=== PATIENT | male | born 1965 | race Caucasian/White ===

== ENCOUNTER 2016-07-02 09:10 | Inpatient (IN) ==
[2016-07-02] MEDS ORDERED: *HR* HYDROcodone/Acet 5/325 mg TABLET PO ONE (09:30)
--- NOTE | 2016-07-02 09:33 | Emergency Department Note ---
Disposition Clinical Impression: Deep vein thrombosis of lower extremity, Lower extremity edema, Subtherapeutic international normalized ratio (INR) Disposition: Admitted As Inpatient Condition: Good Extremity Problem HPI - General Chief complaint: ED Extremity Problem,Nontraumatic Stated complaint: left leg/foot pain Time Seen by Provider: 07/02/16 09:22 Source: patient Limitations: no limitations Nursing Notes Reviewed: Yes Vital Signs Reviewed: Yes - History of Present Illness Pain Scale: 9 - Related Data Home Medications Medication Instructions Recorded Confirmed Fenofibrate [Fenofibrate] 54 mg PO HS 07/02/16 07/02/16 Gabapentin [Gabapentin] 800 mg PO QID 07/02/16 07/02/16 GlyBURIDE [Glyburide] 2.5 mg PO QAM 07/02/16 07/02/16 Losartan/HCTZ [Hyzaar 50-12.5 1 tab PO BID 07/02/16 07/02/16 Tablet] Metformin [Glucophage] 1,000 mg PO HS 07/02/16 07/02/16 Metformin [Glucophage] 1,500 mg PO QAM 07/02/16 07/02/16 Metoprolol XL (24 HR) Succ [Toprol 50 mg PO QAM 07/02/16 07/02/16 XL] Metoprolol XL (24 HR) Succ [Toprol 100 mg PO HS 07/02/16 07/02/16 XL] Pravastatin Sodium [Pravachol] 20 mg PO BID 07/02/16 07/02/16 Warfarin [Coumadin] 5 mg PO QAM 07/02/16 07/02/16 Allergies Allergy/AdvReac Type Severity Reaction Status Date / Time codeine Allergy Hives Verified 07/02/16 09:15 Past Medical History - Past Medical History Medical history: Reports: diabetes, hyperlipidemia, hypertension, myocardial infarction, peripheral artery disease, other Psychiatric history: Reports: no psych history - Social History Smoking Status: Never smoker Smokeless Tobacco Status: Yes Alcohol use: Reports: none Drug use: Reports: none Physical Exam - General Limitations: no limitations General appearance: alert, in no apparent distress Course Vital Signs Temperature 98.0 F 07/02/16 09:16 Pulse Rate 103 07/02/16 09:16 Respiratory Rate 18 07/02/16 09:16 Blood Pressure 199/113 07/02/16 09:16 O2 Sat by Pulse Oximetry 98 07/02/16 09:16 Temperature 98.1 F 07/02/16 12:10 Pulse Rate 83 07/02/16 12:10 Respiratory Rate 17 07/02/16 12:10 Blood Pressure 172/90 07/02/16 12:10 O2 Sat by Pulse Oximetry 95 07/02/16 12:10 Oxygen Delivery Oxygen Delivery Room Air Extremity Problem, Nontraumati - [facility] Narrative Medical decision making narrative: I examined this patient and my medical decision-making was reviewed with the SEMICONDUCTOR MANUFACTURING TECHNICIAN/PA/Advanced Practice Nurse/Resident Physician. I agree with the documented findings, disposition and treatment plan as described except to the extent set forth below. Patient was evaluated myself and Dr. Chambers, agrees his evaluation management plan supervise care the patient stay. Patient presents today with bilateral lower extremity pain. He sits been chronic. He is between doctors at this time. His seen pain management, podiatry, and also primary care. He has been has signs of peipheral vascular disease he is not aware. He has edma in his lower extremities and history of Dvt. We will order a CHF workup and check his legs for DVT check pulses on him and then reassess. He may need a vascular referral primary care. He is in agreement with this plan. 1040 hrs.: Spoke with the nanotechnology engineering technician patient has multiple new-appearing DVTs in the popliteal region. Because of this and his INR being non-therapeutic rest tremor and heparin and bring him into the hospital. He will need further workup for the DVTs to determine whether this is from another source or fixtures affect his Coumadin is not therapeutic rest of his labs look good. Were discussing that with the patient this time. 1050 hrs.: Spoke with the hospitalist and they agreed to admission. Asked that we start him on Lovenox. Patient's agreement with the plan. Waiting on bed. - Lab Data Result diagrams: 07/02/16 09:45 07/02/16 09:45 Lab Results 07/02/16 07/02/16 07/02/16 Range/Units 09:45 09:45 09:45 WBC 4.4 (4.3-11.1) K/mcL RBC 4.70 (4.19-5.50) M/mcL Hgb 14.6 (12.9-16.9) g/dL Hct 41.3 (37.5-50.1) % MCV 87.9 (83.0-100.0) fL MCH 31.1 (28.0-33.3) pg MCHC 35.4 (31.6-35.5) g/dL RDW 12.8 (11.5-14.5) % Plt Count 125 L (140-400) K/mcL MPV 10.2 (9.4-12.4) fL Immature Gran % 0.9 (0-4) % Seg Neutrophils % 50.2 % Lymphocytes % 35.6 % Monocytes % 9.0 % Eosinophils % 3.4 % Basophils % 0.9 % Neutrophils # 2.2 (1.6-8.9) K/mcL Lymphocytes # 1.6 (0.6-4.6) K/mcL Monocytes # 0.4 (0.0-1.3) K/mcL Eosinophils # 0.2 (0.0-0.6) K/mcL Basophils # 0.0 (0.0-0.2) K/mcL PT 11.6 (9.4-12.1) Seconds INR 1.1 Sodium 140 (136-145) mEq/L Potassium 3.6 (3.5-4.5) mEq/L Chloride 103 (98-109) mEq/L Carbon Dioxide 27 (19-29) mEq/L BUN 12 (8-26) mg/dL Creatinine 0.74 (0.72-1.25) mg/dL Est GFR ( Amer) > 60 (> 60) Est GFR (Non-Af Amer) > 60 (> 60) BUN/Creatinine Ratio 16 (6-26) Glucose 112 H (70-99) mg/dL Calculated Osmolality 291 (280-300) Calcium 9.8 (8.6-10.8) mg/dL Total Bilirubin 0.5 (0.2-1.2) mg/dL AST 19 (5-34) Units/L ALT 19 (0-55) Units/L Alkaline Phosphatase 64 (38-126) Units/L B-Natriuretic Peptide (0-100) pg/mL Serum Total Protein 7.6 (6.0-8.3) g/dL Albumin 3.8 (3.5-5.0) g/dL Globulin 3.8 H (2.4-3.5) g/dL Albumin/Globulin Ratio 1.0 L (1.1-2.2) 07/02/16 Range/Units 09:45 WBC (4.3-11.1) K/mcL RBC (4.19-5.50) M/mcL Hgb (12.9-16.9) g/dL Hct (37.5-50.1) % MCV (83.0-100.0) fL MCH (28.0-33.3) pg MCHC (31.6-35.5) g/dL RDW (11.5-14.5) % Plt Count (140-400) K/mcL MPV (9.4-12.4) fL Immature Gran % (0-4) % Seg Neutrophils % % Lymphocytes % % Monocytes % % Eosinophils % % Basophils % % Neutrophils # (1.6-8.9) K/mcL Lymphocytes # (0.6-4.6) K/mcL Monocytes # (0.0-1.3) K/mcL Eosinophils # (0.0-0.6) K/mcL Basophils # (0.0-0.2) K/mcL PT (9.4-12.1) Seconds INR Sodium (136-145) mEq/L Potassium (3.5-4.5) mEq/L Chloride (98-109) mEq/L Carbon Dioxide (19-29) mEq/L BUN (8-26) mg/dL Creatinine (0.72-1.25) mg/dL Est GFR ( Amer) (> 60) Est GFR (Non-Af Amer) (> 60) BUN/Creatinine Ratio (6-26) Glucose (70-99) mg/dL Calculated Osmolality (280-300) Calcium (8.6-10.8) mg/dL Total Bilirubin (0.2-1.2) mg/dL AST (5-34) Units/L ALT (0-55) Units/L Alkaline Phosphatase (38-126) Units/L B-Natriuretic Peptide 13 (0-100) pg/mL Serum Total Protein (6.0-8.3) g/dL Albumin (3.5-5.0) g/dL Globulin (2.4-3.5) g/dL Albumin/Globulin Ratio (1.1-2.2)
--- NOTE | 2016-07-02 09:35 | Emergency Department Note ---
Disposition Clinical Impression: Subtherapeutic international normalized ratio (INR) Deep vein thrombosis of lower extremity Qualifiers: Affected thrombotic vein of extremity: unspecified vein of extremity Laterality : bilateral Chronicity: acute Qualified Code(s): I82.403 - Acute embolism and thrombosis of unspecified deep veins of lower extremity, bilateral Lower extremity edema Qualifiers: Laterality: bilateral Qualified Code(s): R60.0 - Localized edema Disposition: Admitted As Inpatient Condition: Good Time of Disposition: 10:55 Extremity Problem HPI - General Chief complaint: ED Extremity Problem,Nontraumatic Stated complaint: left leg/foot pain Time Seen by Provider: 07/02/16 09:22 Source: patient Mode of arrival: ambulatory Limitations: no limitations Nursing Notes Reviewed: Yes Vital Signs Reviewed: Yes - History of Present Illness HPI Narrative: 51-year-old male with a history of diabetes with neuropathy, hypertension, chronic DVT on Coumadin presents to the ED with worsening leg pain. Patient has a history of chronic bilateral leg pain worse last night to his left leg. He has known neuropathy and is currently in between primary care providers. Reports his sugars are currently well-controlled. Denies any recent injury or trauma. However 2 days ago his left big toe nail fell off. Denies any fevers, cough, chest pain, shortness of breath. Legs are chronically swollen but he takes Coumadin for his chronic history of DVT's. He was able to ambulate with a cane to exam room. Denies any back pain, or urinary complaints. Pt Subjective Complaint: extremity pain Pain Scale: 9 - Related Data Home Medications Medication Instructions Recorded Confirmed Fenofibrate [Fenofibrate] 54 mg PO HS 07/02/16 07/02/16 Gabapentin [Gabapentin] 800 mg PO QID 07/02/16 07/02/16 GlyBURIDE [Glyburide] 2.5 mg PO QAM 07/02/16 07/02/16 Losartan/HCTZ [Hyzaar 50-12.5 1 tab PO BID 07/02/16 07/02/16 Tablet] Metformin [Glucophage] 1,000 mg PO HS 07/02/16 07/02/16 Metformin [Glucophage] 1,500 mg PO QAM 07/02/16 07/02/16 Metoprolol XL (24 HR) Succ [Toprol 50 mg PO QAM 07/02/16 07/02/16 XL] Metoprolol XL (24 HR) Succ [Toprol 100 mg PO HS 07/02/16 07/02/16 XL] Pravastatin Sodium [Pravachol] 20 mg PO BID 07/02/16 07/02/16 Warfarin [Coumadin] 5 mg PO QAM 07/02/16 07/02/16 Allergies Allergy/AdvReac Type Severity Reaction Status Date / Time codeine Allergy Hives Verified 07/02/16 09:15 All systems ED: reviewed and negative except as stated. Constitutional: Denies: fever, chills Cardiovascular: Denies: chest pain Respiratory: Denies: cough, dyspnea Gastrointestinal: Denies: abdominal pain, nausea, vomiting Genitourinary: Denies: urgency Musculoskeletal: Denies: back pain, neck pain Integumentary: Reports: abrasion, lesions, change in hair/nails. Denies: rash Neurological: Denies: headache, weakness, numbness Past Medical History - Past Medical History Attestation: Yes The following information was validated with the patient. Source: patient Medical history: Reports: diabetes, hyperlipidemia, hypertension, myocardial infarction, peripheral artery disease, other Psychiatric history: Reports: no psych history - Social History Smoking Status: Never smoker Smokeless Tobacco Status: Yes Alcohol use: Reports: none Drug use: Reports: none Physical Exam - General Limitations: no limitations General appearance: alert, in distress, obese - Head Head exam: atraumatic, normocephalic, normal inspection - Eye Eye exam: Present: normal appearance, PERRL, EOMI - ENT ENT exam: normal exam, normal oropharynx, mucous membranes moist - Neck Neck exam: Present: normal inspection, full ROM, trachea midline - Chest Chest inspection: Present: normal inspection, symmetric chest wall rise - Respiratory Respiratory exam: Present: normal lung sounds bilaterally. Absent: respiratory distress, wheezes - Cardiovascular Cardiovascular exam: Present: regular rate, normal rhythm, normal heart sounds - Abdominal Exam Abdominal exam: Present: soft, Non-Tender, normal bowel sounds. Absent: tenderness, distention, guarding, rebound, rigidity - Extremities Exam Extremities exam: Present: normal inspection, full ROM, normal capillary refill , pedal edema, calf tenderness. Absent: tenderness - Neurological Exam Neurological exam: Present: alert, oriented X3 - Psychiatric Psychiatric exam: Present: normal affect, normal mood - Skin Skin exam: Present: warm, dry, intact, normal color Course Course Narrative: 51-year-old male past history of DVT presents with worsening leg pain. Reports chronic leg swelling. Over the past several days he has increased bilateral leg pain. Denies any recent travel or shortness of breath. Vitals are stable. Lungs are clear to auscultation bilaterally. Full ROM to bilateral extremities. He has bilateral lower extremity edema. He has signs of peripheral vascular disease and recently had a toenail fall off. Wells DVT criteria score is high risk. Will get bilateral doppler ultrasound and doppler pedal pulses. Armstrong for pain. Will check basic labs to check for any signs of acute heart failure. Will include an INR since he is on coumadin. CMP to check for hypoalbuminemia. - Reevaluation(s) Reevaluation #1: Informed by doppler tech that he has multiple new appearing DVT in the popliteal regions bilaterally. Because of his subtherapeutic INR we will likely need to bridge him with heparin and admit to the hospital. He will likely need further workup for his DVTs to look for any other sources. Discussed plan with patient and son and are in agreement with plan. Hospitalist paged. Impression is acute bilateral DVT and subtherapeutic INR. Time: 10:50 - Consultations Consultation #1: Spoke with Dr. Espinoza, hospitalist, elisabeth to admit for acute DVT and subtherapeutic INR. Likely will need further workup with his acute DVT on anticoagulation. Cr is good at 0.7. Will initiate Lovenox 1mg/kg. Denies any history of PE. Time: 10:55 Vital Signs Temperature 98.0 F 07/02/16 09:16 Pulse Rate 103 07/02/16 09:16 Respiratory Rate 18 07/02/16 09:16 Blood Pressure 199/113 07/02/16 09:16 O2 Sat by Pulse Oximetry 98 07/02/16 09:16 Temperature 98.4 F 07/02/16 18:31 Pulse Rate 90 07/02/16 18:31 Respiratory Rate 18 07/02/16 18:31 Blood Pressure 162/80 07/02/16 18:31 O2 Sat by Pulse Oximetry 96 07/02/16 18:31 Oxygen Delivery Oxygen Delivery Room Air Extremity Problem, Nontraumati - Medical Records Medical records reviewed: Yes I reviewed the patient's medical records. - Lab Data Lab results reviewed: Yes I reviewed the patient's lab results. Result diagrams: 07/02/16 09:45 07/02/16 09:45 Lab Results 07/02/16 07/02/16 07/02/16 Range/Units 09:45 09:45 09:45 WBC 4.4 (4.3-11.1) K/mcL RBC 4.70 (4.19-5.50) M/mcL Hgb 14.6 (12.9-16.9) g/dL Hct 41.3 (37.5-50.1) % MCV 87.9 (83.0-100.0) fL MCH 31.1 (28.0-33.3) pg MCHC 35.4 (31.6-35.5) g/dL RDW 12.8 (11.5-14.5) % Plt Count 125 L (140-400) K/mcL MPV 10.2 (9.4-12.4) fL Immature Gran % 0.9 (0-4) % Seg Neutrophils % 50.2 % Lymphocytes % 35.6 % Monocytes % 9.0 % Eosinophils % 3.4 % Basophils % 0.9 % Neutrophils # 2.2 (1.6-8.9) K/mcL Lymphocytes # 1.6 (0.6-4.6) K/mcL Monocytes # 0.4 (0.0-1.3) K/mcL Eosinophils # 0.2 (0.0-0.6) K/mcL Basophils # 0.0 (0.0-0.2) K/mcL PT 11.6 (9.4-12.1) Seconds INR 1.1 Sodium 140 (136-145) mEq/L Potassium 3.6 (3.5-4.5) mEq/L Chloride 103 (98-109) mEq/L Carbon Dioxide 27 (19-29) mEq/L BUN 12 (8-26) mg/dL Creatinine 0.74 (0.72-1.25) mg/dL Est GFR ( Amer) > 60 (> 60) Est GFR (Non-Af Amer) > 60 (> 60) BUN/Creatinine Ratio 16 (6-26) Glucose 112 H (70-99) mg/dL Calculated Osmolality 291 (280-300) Calcium 9.8 (8.6-10.8) mg/dL Total Bilirubin 0.5 (0.2-1.2) mg/dL AST 19 (5-34) Units/L ALT 19 (0-55) Units/L Alkaline Phosphatase 64 (38-126) Units/L B-Natriuretic Peptide (0-100) pg/mL Serum Total Protein 7.6 (6.0-8.3) g/dL Albumin 3.8 (3.5-5.0) g/dL Globulin 3.8 H (2.4-3.5) g/dL Albumin/Globulin Ratio 1.0 L (1.1-2.2) 07/02/16 Range/Units 09:45 WBC (4.3-11.1) K/mcL RBC (4.19-5.50) M/mcL Hgb (12.9-16.9) g/dL Hct (37.5-50.1) % MCV (83.0-100.0) fL MCH (28.0-33.3) pg MCHC (31.6-35.5) g/dL RDW (11.5-14.5) % Plt Count (140-400) K/mcL MPV (9.4-12.4) fL Immature Gran % (0-4) % Seg Neutrophils % % Lymphocytes % % Monocytes % % Eosinophils % % Basophils % % Neutrophils # (1.6-8.9) K/mcL Lymphocytes # (0.6-4.6) K/mcL Monocytes # (0.0-1.3) K/mcL Eosinophils # (0.0-0.6) K/mcL Basophils # (0.0-0.2) K/mcL PT (9.4-12.1) Seconds INR Sodium (136-145) mEq/L Potassium (3.5-4.5) mEq/L Chloride (98-109) mEq/L Carbon Dioxide (19-29) mEq/L BUN (8-26) mg/dL Creatinine (0.72-1.25) mg/dL Est GFR ( Amer) (> 60) Est GFR (Non-Af Amer) (> 60) BUN/Creatinine Ratio (6-26) Glucose (70-99) mg/dL Calculated Osmolality (280-300) Calcium (8.6-10.8) mg/dL Total Bilirubin (0.2-1.2) mg/dL AST (5-34) Units/L ALT (0-55) Units/L Alkaline Phosphatase (38-126) Units/L B-Natriuretic Peptide 13 (0-100) pg/mL Serum Total Protein (6.0-8.3) g/dL Albumin (3.5-5.0) g/dL Globulin (2.4-3.5) g/dL Albumin/Globulin Ratio (1.1-2.2) - Radiology Data Radiology results reviewed: Yes I reviewed the patient's radiology results. Preliminary doppler US report for bilateral acute DVT in popliteal - EKG Data EKG attestation: Yes I reviewed and interpreted this EKG. EKG results narrative: EKG performed shows normal sinus rhythm 96 bpm, normal axis, there are no ST elevations or depressions, no T waves inversions, poor R-R wave progression. Intervals are within normal limits VA interval 176 QRS 120 QT QTC 378 432. Compared to EKG performed 12/22/2009 shows consistent findings of normal sinus rhythm without any intraventricular conduction delay. Otherwise unremarkable. No acute ischemic changes.
[2016-07-02 09:57] LABS: Basophils % 0.9 %; Eosinophils # 0.2 K/mcL (0.0-0.6); Eosinophils % 3.4 %; Hematocrit 41.3 % (37.5-50.1); Hemoglobin 14.6 g/dL (12.9-16.9); Immature Granulocytes % 0.9 % (0-4); Lymphocytes # 1.6 K/mcL (0.6-4.6); Lymphocytes % 35.6 %; Mean Corpuscular HGB Conc 35.4 g/dL (31.6-35.5); Mean Corpuscular Hemoglobin 31.1 pg (28.0-33.3); Mean Corpuscular Volume 87.9 fL (83.0-100.0); Mean Platelet Volume 10.2 fL (9.4-12.4); Monocytes # 0.4 K/mcL (0.0-1.3); Neutrophils # 2.2 K/mcL (1.6-8.9); Platelet Count 125 K/mcL (140-400); Red Cell Distribution Width 12.8 % (11.5-14.5); Segmented Neutrophils % 50.2 %
[2016-07-02 10:08] LABS: Alanine Aminotransferase 19 Units/L (0-55); Albumin 3.8 g/dL (3.5-5.0); Alkaline Phosphatase 64 Units/L (38-126); Aspartate Amino Transferase 19 Units/L (5-34); BUN/Creatinine Ratio 16 (6-26); Bilirubin,Total 0.5 mg/dL (0.2-1.2); Blood Urea Nitrogen 12 mg/dL (8-26); Calcium 9.8 mg/dL (8.6-10.8); Carbon Dioxide 27 mEq/L (19-29); Chloride 103 mEq/L (98-109); Globulin 3.8 g/dL (2.4-3.5); Glucose 112 mg/dL (70-99); Osmolality,Calculated 291 (280-300); Potassium 3.6 mEq/L (3.5-4.5); Sodium 140 mEq/L (136-145); Total Protein 7.6 g/dL (6.0-8.3); eGFR For African Americans > 60 (> 60); eGFR For Non-African Americans > 60 (> 60)
[2016-07-02 10:09] LABS: INR 1.1; Prothrombin Time 11.6 Seconds (9.4-12.1)
[2016-07-02] MEDS ORDERED: *HR* HYDROmorphone (PF) 1 MG/ML SYRINGE IVP ONE (10:41)
[2016-07-02] MEDS ORDERED: *HR* Enoxaparin 80 MG/0.8 ML SYRINGE SQ STA (10:47)
[2016-07-02] MEDS ORDERED: *HR* Enoxaparin 100 MG/ML SYRINGE SQ ONE (11:00)
[2016-07-02] MEDS ORDERED: Ondansetron 4 MG/2 ML VIAL IVP PRN (11:41)
[2016-07-02] MEDS ORDERED: Naloxone 0.4 MG/ML INJ IVP PRN (11:41)
--- NOTE | 2016-07-02 12:52 | Internal Med History&Physical ---
Date of Encounter: 07/02/16 Time of Encounter: 11:45 Assessment and Plan (1) Deep vein thrombosis of lower extremity Current visit: Yes Status: Acute left lower extremity acute DVT in 2013. Since then he has been on anticoagulation with Coumadin 5 mg daily. He reports that his last INR check was April 2016 and the number was okay. He admits to changing his diet recently because he is trying to lose weight so he is eating more salad. Presented with severe bilateral leg pain. Venous doppler ultrasound shows a partial acute DVT of bilateral Popliteal Vein and occlusion of the right Gastroc vein. Continue Lovenox subcutaneous twice a day. Consult social worker health services for planning discharged on Lovenox and Coumadin. Daily INR checks. Consult pharmacy medication for coumadin teaching and recent change in diet habits. Cardiac monitoring. Qualifiers: Affected thrombotic vein of extremity: unspecified vein of extremity Laterality: bilateral Chronicity: acute Qualified Code(s): I82.403 - Acute embolism and thrombosis of unspecified deep veins of lower extremity, bilateral (2) Subtherapeutic international normalized ratio (INR) Current visit: Yes Status: Acute INR 1.1. plan as above. (3) Diabetes mellitus Current visit: Yes Status: Acute ISSS. diabetic diet. Qualifiers: Diabetes mellitus type: type 2 Diabetes mellitus complication status: with neurologic complications Diabetes mellitus complication detail: with polyneuropathy Diabetes mellitus exterminator termite insulin use: without exterminator termite use Qualified Code(s): E11.42 - Type 2 diabetes mellitus with diabetic polyneuropathy (4) Hypertension Current visit: Yes Status: Acute elevated BP. start hydralazine. lisinopril. close monitor. Qualifiers: Hypertension type: essential hypertension Qualified Code(s): I10 - Essential (primary) hypertension (5) Diabetic neuropathy Current visit: Yes Status: Acute Patient has prolonged history of severe bilateral nephropathy for which he can not walk as much as he would like. continue home dose of gabapentin. Qualifiers: Diabetes mellitus type: type 2 Diabetes mellitus complication detail: diabetic polyneuropathy Qualified Code(s): E11.42 - Type 2 diabetes mellitus with diabetic polyneuropathy Internal Medicine - H&P: HPI Chief complaint: Severe bilateral leg pain for 2 days. Admitted From: Home Plans for Post Hospital Care: Home History of present illness: Mr. Nuñez is a 51 year old male with past medical history of hypertension, diabetes mellitus, severe diabetic neuropathy in both legs and prior episode of left lower extremity acute DVT in 2013. Since then he has been on anticoagulation with Coumadin 5 mg daily. He reports that his last INR check was April 2016 and the number was okay. He admits to changing his diet recently because he is trying to lose weight so he is eating more salad. For the 2 days, he developed severe bilateral leg pain that it became unbearable today so he came to our ED. No change in leg swelling. No shortness of breath. No chest pain. No bleeding. No abdominal pain. No urinary complaints. No headache. No syncope. No focal deficit. In our ED, venous doppler of LE showed bilateral acute DVT. INR was 1.1. He received subcutaneous Lovenox 1. Past Med Surg Social Fam HX - Past Medical History Medical history: diabetes, hyperlipidemia, hypertension, myocardial infarction, peripheral artery disease, other Psychiatric history: no psych history - Social History Smoking Status: Never smoker Smokeless Tobacco Status: Yes Alcohol use: none Drug use: none - Family History Mother Living Status: Hx Family Cardiac Disorders: Yes (CHF) Father Living Status: Hx Family Psychosocial Disorders: Yes (suicide 4 months after passed.) Internal Medicine - H&P: Meds Hydrocodone/Acetaminophen [[place] 5-325 Tablet] 1 - 2 each PO Q6H PRN #20 tablet 09/12/15 [Rx] Allergies codeine Allergy (Verified 07/02/16 09:15) Hives All Systems PM: A 10-system review of systems was performed and is negative for pertinent findings except as documented above in the HPI. - Constitutional Vitals: Temp Pulse Resp BP Pulse Ox 98.1 F 83 17 172/90 95 07/02/16 12:10 07/02/16 12:10 07/02/16 12:10 07/02/16 12:10 07/02/16 12:10 General appearance: Present: cooperative, A&O X 3, pleasant, no acute distress, answers questions appropriately - Eye Eye exam: Present: PERRL, sclera anicteric - Neck Neck exam general surgery: Present: supple, trachea midline. Absent: lymphadenopathy - Respiratory Respiratory exam: Present: CTAB - Cardiovascular Cardiovascular exam: Present: RRR - GI/Abdominal GI/Abdominal exam: Present: normal bowel sounds, soft. Absent: distended, tenderness - Extremities Exam Extremities exam: Present: pedal edema - Back Exam Back exam: Absent: CVA tenderness (L), CVA tenderness (R) - Neurological Exam Neurological exam: Present: alert, oriented X3, no focal deficits. Absent: facial droop, speech deficit - Skin Skin exam: Absent: rash Additional comments: Legs: Chronic venous stasis changes in skin. Internal Med - H&P Results - Labs CBC & Chem 7: 07/02/16 09:45 07/02/16 09:45
[2016-07-02] MEDS: Gabapentin 400 MG CAPSULE PO SCH ×2 (13:47→20:53)
[2016-07-02] MEDS: Lisinopril 20 MG TABLET PO SCH (13:47)
[2016-07-02] MEDS: *HR* Morphine 2 MG/ML SYRINGE IVP PRN ×3 (13:52→22:30)
[2016-07-02] MEDS: hydrALAZINE 25 MG TABLET PO SCH ×2 (16:54→23:15)
[2016-07-02] MEDS ORDERED: *HR* Warfarin 10 MG TABLET PO ONE (18:00)
[2016-07-02] MEDS ORDERED: Warfarin perPT PO PRN (18:00)
[2016-07-02] MEDS: *HR* Enoxaparin 100 MG/ML SYRINGE SQ SCH (20:52)
[2016-07-02] MEDS: *HR* HYDROcodone/Acet 5/325 mg TABLET PO PRN (20:53)
[2016-07-03] MEDS: *HR* Morphine 2 MG/ML SYRINGE IVP PRN ×4 (03:57→20:00)
[2016-07-03 05:08] LABS: Basophils % 0.6 %; Eosinophils # 0.2 K/mcL (0.0-0.6); Eosinophils % 3.1 %; Hematocrit 38.7 % (37.5-50.1); Immature Granulocytes % 0.6 % (0-4); Lymphocytes # 1.4 K/mcL (0.6-4.6); Lymphocytes % 28.7 %; Mean Corpuscular HGB Conc 33.6 g/dL (31.6-35.5); Mean Corpuscular Volume 89.2 fL (83.0-100.0); Mean Platelet Volume 10.2 fL (9.4-12.4); Monocytes # 0.5 K/mcL (0.0-1.3); Monocytes % 9.4 %; Neutrophils # 2.7 K/mcL (1.6-8.9); Platelet Count 121 K/mcL (140-400); Red Blood Count 4.34 M/mcL (4.19-5.50); Red Cell Distribution Width 12.9 % (11.5-14.5); Segmented Neutrophils % 57.6 %
[2016-07-03 05:25] LABS: INR 1.2; Prothrombin Time 12.9 Seconds (9.4-12.1)
[2016-07-03 05:26] LABS: BUN/Creatinine Ratio 16 (6-26); Blood Urea Nitrogen 12 mg/dL (8-26); Carbon Dioxide 28 mEq/L (19-29); Chloride 104 mEq/L (98-109); Potassium 3.7 mEq/L (3.5-4.5); Sodium 140 mEq/L (136-145)
[2016-07-03 05:27] LABS: Calcium 9.6 mg/dL (8.6-10.8); Chol/HDL Ratio 5.2 (0-4.9); Cholesterol 171 mg/dL (< 200); Glucose 142 mg/dL (70-99); HDL Cholesterol 33 mg/dL (40-59); LDL Cholesterol,Calculated 64 mg/dL (0-99); Magnesium 1.4 mg/dL (1.6-2.6); Osmolality,Calculated 292 (280-300); Triglycerides 372 mg/dL (< 150); eGFR For African Americans > 60 (> 60); eGFR For Non-African Americans > 60 (> 60)
[2016-07-03] MEDS: *HR* Enoxaparin 100 MG/ML SYRINGE SQ SCH ×2 (06:13→18:11)
[2016-07-03] MEDS: *HR* HYDROcodone/Acet 5/325 mg TABLET PO PRN ×2 (06:14→11:58)
[2016-07-03] MEDS: Lisinopril 20 MG TABLET PO SCH (09:03)
[2016-07-03] MEDS: hydrALAZINE 25 MG TABLET PO SCH ×2 (09:03→15:19)
[2016-07-03] MEDS: Gabapentin 400 MG CAPSULE PO SCH ×3 (09:03→21:19)
[2016-07-03] MEDS ORDERED: Dextrose Gel 15 GM PO PRN ×2 (09:28)
[2016-07-03] MEDS ORDERED: D5% in Water 1,000 ML IV PRN (09:28)
[2016-07-03] MEDS ORDERED: *HR* Dextrose 50 % in Water (Syg) 50 ML SYRINGE IVP PRN (09:28)
[2016-07-03] MEDS: Insulin LISPRO 300 UNITS/3 ML VIAL SQ SCH ×2 (11:48→16:56)
--- NOTE | 2016-07-03 17:41 | Internal Med Progress Note ---
Date of Encounter: 07/03/16 Time of Encounter: 10:00 - Assessment and plan (1) Deep vein thrombosis of lower extremity Current Visit: Yes Status: Acute Assessment and plan: Recurrent DVT, Pt is noncompliant to coumadin. Will resume coumadin, bridge with Lovenox. Hematology consult. Qualifiers: Affected thrombotic vein of extremity: unspecified vein of extremity Laterality: bilateral Chronicity: acute Qualified Code(s): I82.403 - Acute embolism and thrombosis of unspecified deep veins of lower extremity, bilateral (2) Diabetes mellitus Current Visit: Yes Status: Acute Assessment and plan: Sliding scale coverage Qualifiers: Diabetes mellitus type: type 2 Diabetes mellitus complication status: with neurologic complications Diabetes mellitus complication detail: with polyneuropathy Diabetes mellitus correction insulin use: without correction use Qualified Code(s): E11.42 - Type 2 diabetes mellitus with diabetic polyneuropathy (3) Hypertension Current Visit: Yes Status: Acute Assessment and plan: Continue home med, monitor BP Qualifiers: Hypertension type: essential hypertension Qualified Code(s): I10 - Essential (primary) hypertension (4) Subtherapeutic international normalized ratio (INR) Current Visit: Yes Status: Acute Assessment and plan: Continue coumadin. Education for compliance. Nutrition consult for diet education. - Subjective Interval history: Pt is a 51 yoM admitted for B/L leg pain. US leg shows B/L DVT. PMH is significant for HTN, DM, CAD, Left leg DVT diagnosed about two years ago. Pt was seen and examined. AAO x3, c/o legs pain controlled by pain meds. In no acute distress. Denies chest pain or SOB. Vitals stable. Continue anticoagulations. Recurrent DVT, will consult hematology for further management. - Constitutional Vitals: Temp Pulse Resp BP Pulse Ox 97.5 F L 81 16 186/104 96 07/03/16 15:09 07/03/16 15:09 07/03/16 15:09 07/03/16 15:09 07/03/16 15:09 General appearance: Present: cooperative, A&O X 3, pleasant, no acute distress, answers questions appropriately - Head Head exam: Present: atraumatic, normocephalic - Eye Eye exam: Present: PERRL, conjuntiva pink, sclera anicteric Pupils: Present: PERRL - Neck Neck exam general surgery: Present: supple, trachea midline. Absent: lymphadenopathy - Respiratory Respiratory exam: Present: CTAB. Absent: accessory muscle use, rales, rhonchi, wheezes - Cardiovascular Cardiovascular exam: Present: RRR, +S1, +S2. Absent: diastolic murmur, gallop, rubs, systolic murmur - GI/Abdominal GI/Abdominal exam: Present: normal bowel sounds, soft, no peritoneal signs. Absent: distended, tenderness - Extremities Exam Extremities exam: Present: calf tenderness (B/L), warm, radial pulses palpable and symetrical. Absent: cyanotic, pedal edema - Neurological Exam Neurological exam: Present: CN II-XII intact, oriented X3, no focal deficits. Absent: pronater drift, facial droop, speech deficit - Skin Skin exam: Present: dry, intact Internal Medicine: Result - Labs CBC & Chem 7: 07/03/16 04:54 07/03/16 04:54 - ABG Interpretation ABG results: PT/INR, D-dimer PT 12.9 Seconds (9.4-12.1) H 07/03/16 04:54 Consult Discharge Plan - Plan Referrals: Francoise Taylor PILOT PLANT TECHNICIAN [Primary Care Provider] -
--- NOTE | 2016-07-03 17:49 | Oncology Inp Consult Note ---
Date of Encounter: 07/03/16 Time of Encounter: 12:00 - Data of Consult Requesting Physician: Emy Mccarty MD Primary Care Provider: Francoise Taylor, - Consult Narrative Reason for consult: DVT recurrent History of present illness: Mr. Nuñez is a 51 year old male with medical history significant for left lower extremity deep venous thrombosis in 2013, patient is also obese history of hypertension, diabetes mellitus, was on anti-coagulation with Coumadin 5 mg daily hospitalized with subtherapeutic INR patient reports compliance to Coumadin but not complains to diet, presented with bilateral type pain and swelling a Doppler ultrasound preliminary showed acute DVT of bilateral popliteal vein. Patient is currently on Lovenox subcutaneously twice daily. He is also chronic neuropathy in bilateral lower extremities and uses gabapentin for his diabetic neuropathy. Hematology consulted for recommendation on further anticoag therapy. Other then lower extremity pain in the thigh area as was neuropathy patient denies any complaints of shortness of breath cough with expectoration or other symptoms. Assessment and Plan: Recurrent deep venous thrombosis off lower extremity bilateral to prior history of DVT in left lower extremity in 2013 reports, plans to Coumadin unable to get us INR checks/dietary management, suggested at anticoagulation with xarelto 20 mg by mouth daily if he could obtain insurance coverage. Plan on continuing life long anticoagulation. Diabetic neuropathy and pain in lower ext limits ambulation. F/U outpatient with us in hematology. Past Med Surg Social Fam HX - Past Medical History Medical history: diabetes, hyperlipidemia, hypertension, myocardial infarction, peripheral artery disease, other Psychiatric history: no psych history - Social History Smoking Status: Never smoker Smokeless Tobacco Status: Yes Alcohol use: none Drug use: none - Family History Mother Living Status: Hx Family Cardiac Disorders: Yes (CHF) Father Living Status: Hx Family Psychosocial Disorders: Yes (suicide 4 months after passed.) Medications and Allergies Fenofibrate [Fenofibrate] 54 mg PO HS 07/02/16 [History] Gabapentin [Gabapentin] 800 mg PO QID 07/02/16 [History] GlyBURIDE [Glyburide] 2.5 mg PO QAM 07/02/16 [History] Losartan/HCTZ [Hyzaar 50-12.5 Tablet] 1 tab PO BID 07/02/16 [History] Metformin [Glucophage] 1,000 mg PO HS 07/02/16 [History] Metformin [Glucophage] 1,500 mg PO QAM 07/02/16 [History] Metoprolol XL (24 HR) Succ [Toprol XL] 50 mg PO QAM 07/02/16 [History] Metoprolol XL (24 HR) Succ [Toprol XL] 100 mg PO HS 07/02/16 [History] Pravastatin Sodium [Pravachol] 20 mg PO BID 07/02/16 [History] Warfarin [Coumadin] 5 mg PO QAM 07/02/16 [History] Allergies codeine Allergy (Verified 07/02/16 09:15) Hives Review of systems: as above Oncology - Exam - Constitutional Vitals: Temp Pulse Resp BP Pulse Ox 97.5 F L 81 16 186/104 96 07/03/16 15:09 07/03/16 15:09 07/03/16 15:09 07/03/16 15:09 07/03/16 15:09 General appearance: morbidly obese - Head Head exam: Present: atraumatic, normal inspection - Eye Eye exam: Present: sclera anicteric - ENT ENT exam: Present: mucous membranes moist - Neck Neck exam: Present: normal inspection - Respiratory Respiratory exam: Present: CTAB Additional comments: thick CW, no rhonchi or rales - Cardiovascular Cardiovascular exam: Present: +S1, +S2 - GI/Abdominal GI/Abdominal exam: Present: normal bowel sounds, soft - Extremities Exam Additional comments: Nestor lower ext edema, cr skin changes, slight erythema - Neurological Exam Neurological exam: Present: alert, CN II-XII intact, oriented X3 - Psychiatric Psychiatric exam: Present: normal affect Oncology - Results - Imaging and Cardiology Venous US Status: image reviewed by me Consult Discharge Plan - Plan Referrals: Francoise Taylor DROP FORGE OPERATOR [Primary Care Provider] -
[2016-07-03] MEDS ORDERED: *HR* Warfarin 5 MG TABLET PO ONE (18:00)
--- NOTE | 2016-07-03 19:41 | Electrocardiograph Report ---
[place] [id number] Test Date: 2016-07-02 Pat Name: Jose M Nuñez Department: 104 Room: [facility] Gender: M Car Racer: : 1965 Requested By: Wilder Chambers Order Number: [id number] Reading MD: Greyson Miner Measurements Intervals Venus Rate: 96 P: 38 SD: 176 QRS: -19 QRSD: 120 T: 32 QT: 378 QTc: 432 Interpretive Statements SINUS RHYTHM MODERATE INTRAVENTRICULAR CONDUCTION DELAY NONSPECIFIC ST ELEVATION Electronically Signed On 07-03-2016 19:39:09 EST by Greyson Miner
[2016-07-03] MEDS ORDERED: Insulin LISPRO 300 UNITS/3 ML VIAL SQ SCH (21:00)
[2016-07-03] MEDS ORDERED: Metoprolol XL (24 HR) Succ 50 MG TAB.ER.24H PO SCH (21:00)
[2016-07-03] MEDS: Acetaminophen 325 MG TABLET PO PRN (21:18)
[2016-07-03] MEDS: Losartan/HCTZ 50-12.5 TABLET PO SCH (21:18)
[2016-07-03] MEDS: *HR* OxyCODONE Immed Rel 5 MG TABLET PO PRN (22:15)
[2016-07-04] MEDS: hydrALAZINE 25 MG TABLET PO SCH ×3 (00:11→14:56)
[2016-07-04] MEDS: *HR* Morphine 2 MG/ML SYRINGE IVP PRN ×3 (04:04→15:03)
[2016-07-04] MEDS: Acetaminophen 325 MG TABLET PO PRN ×2 (04:06→15:01)
[2016-07-04] MEDS ORDERED: *HR* LORazepam 1 MG TABLET PO PRN (05:43)
[2016-07-04 05:48] LABS: BUN/Creatinine Ratio 16 (6-26); Blood Urea Nitrogen 11 mg/dL (8-26); Calcium 9.4 mg/dL (8.6-10.8); Carbon Dioxide 24 mEq/L (19-29); Chloride 104 mEq/L (98-109); Glucose 135 mg/dL (70-99); Osmolality,Calculated 289 (280-300); Potassium 3.5 mEq/L (3.5-4.5); Sodium 139 mEq/L (136-145); eGFR For African Americans > 60 (> 60); eGFR For Non-African Americans > 60 (> 60)
[2016-07-04 05:53] LABS: INR 1.3; Prothrombin Time 14.3 Seconds (9.4-12.1)
[2016-07-04 05:59] LABS: Basophils % 0.6 %; Eosinophils # 0.2 K/mcL (0.0-0.6); Eosinophils % 3.6 %; Hematocrit 38.7 % (37.5-50.1); Hemoglobin 13.3 g/dL (12.9-16.9); Immature Granulocytes % 0.9 % (0-4); Lymphocytes # 1.3 K/mcL (0.6-4.6); Lymphocytes % 27.3 %; Mean Corpuscular HGB Conc 34.4 g/dL (31.6-35.5); Mean Corpuscular Hemoglobin 30.5 pg (28.0-33.3); Mean Corpuscular Volume 88.8 fL (83.0-100.0); Mean Platelet Volume 10.5 fL (9.4-12.4); Monocytes # 0.5 K/mcL (0.0-1.3); Monocytes % 10.2 %; Neutrophils # 2.7 K/mcL (1.6-8.9); Platelet Count 118 K/mcL (140-400); Red Blood Count 4.36 M/mcL (4.19-5.50); Red Cell Distribution Width 13.1 % (11.5-14.5); Segmented Neutrophils % 57.4 %
[2016-07-04] MEDS: *HR* Enoxaparin 100 MG/ML SYRINGE SQ SCH ×2 (06:18→18:20)
[2016-07-04] MEDS: Losartan/HCTZ 50-12.5 TABLET PO SCH (08:20)
[2016-07-04] MEDS: Gabapentin 400 MG CAPSULE PO SCH ×2 (08:25→14:56)
[2016-07-04] MEDS: Insulin LISPRO 300 UNITS/3 ML VIAL SQ SCH ×3 (08:45→18:22)
[2016-07-04] MEDS ORDERED: Metoprolol XL (24 HR) Succ 50 MG TAB.ER.24H PO SCH (09:00)
[2016-07-04] MEDS: *HR* OxyCODONE Immed Rel 5 MG TABLET PO PRN (11:51)
--- NOTE | 2016-07-04 15:01 | Venous Imaging Report ---
LE Venous Duplex Patient Name:oJse M Nuñez Order Number:[id number] Procedure Date:07/02/2016 Date:1965Age:51 yrs Gender:Male Location:[facility] ED Room #: Hotel Maid:Donell Neal RDCS Referring MD:Wilder Chambers DO pt skilled:Francoise Taylor, PACS SPECIALIST Reading MD:Eliot Bryant MD Primary Indications:Leg pain and swelling Secondary Indications: Risk Factors Yes/No Anticoagulants Yes Hx of DVT Yes Impressions: Acute deep venous thrombosis is present in the fight popliteal and gastrocnemius veins. Normal right lower extremity superficial venous exam. Acute deep venous thrombosis is present in the left popliteal vein. Normal left lower extremity superficial venous exam. Recommendations: After imaging the patient returned to their room. Critical findings reported to Dr. Ye in person by Donell Neal RDCS. Findings Venous Duplex Results: Right: Venous imaging of the lower extremity reveals full patency and normal vessel compressibility of the right distal iliac, right common femoral, right superficial femoral, right posterior tibial, right peroneal, right great saphenous and right lesser saphenous. Doppler signals in the evaluated veins were normal. There is an acute partially occlusive thrombus seen in the right popliteal. It demonstrates a partially compressible vein. Flow was phasic and it did augment. There is an acute occlusive thrombus seen in the right gastrocnemius. It demonstrates an incompressible vein. Flow was absent and it did not augment. Left: Venous imaging of the lower extremity reveals full patency and normal vessel compressibility of the left distal iliac, left common femoral, left superficial femoral, left posterior tibial, left peroneal, left great saphenous and left lesser saphenous. Doppler signals in the evaluated veins were normal. The left popliteal demonstrates a partially compressible vein. Flow was phasic and it did augment. Lower Extremity Venous Duplex Side Vein Compress Spontaneous Flow Augment Diameter (cm) Depth (cm) Right Popliteal Partial yes Phasic yes Right Gastrocnemius None no Absent no Left Popliteal Partial yes Phasic yes Updated by Eliot Bryant MD on 07/04/2016 2:56:25 PM electronically signed on 07/04/2016 2:57:07 PM with status of Final
--- NOTE | 2016-07-04 15:02 | Discharge Summary ---
Date of Encounter: 07/04/16 Time of Encounter: 14:00 - Discharge Diagnosis (1) Deep vein thrombosis of lower extremity Priority: Primary Status: Acute Qualifiers: Affected thrombotic vein of extremity: unspecified vein of extremity Laterality: bilateral Chronicity: acute Qualified Code(s): I82.403 - Acute embolism and thrombosis of unspecified deep veins of lower extremity, bilateral (2) Diabetes mellitus Priority: Secondary Status: Acute Qualifiers: Diabetes mellitus type: type 2 Diabetes mellitus complication status: with neurologic complications Diabetes mellitus complication detail: with polyneuropathy Diabetes mellitus halfway insulin use: without halfway use Qualified Code(s): E11.42 - Type 2 diabetes mellitus with diabetic polyneuropathy (3) Hypertension Priority: Secondary Status: Acute Qualifiers: Hypertension type: essential hypertension Qualified Code(s): I10 - Essential (primary) hypertension (4) Subtherapeutic international normalized ratio (INR) Priority: Primary Status: Acute - Discharge Medications Prescriptions: Enoxaparin [Lovenox] 170 mg SQ Q12HCO #10 syringe Home Medications: Fenofibrate 54 mg PO HS 07/02/16 [History] Gabapentin 800 mg PO QID 07/02/16 [History] GlyBURIDE [Glyburide] 2.5 mg PO QAM 07/02/16 [History] Losartan/HCTZ [Hyzaar 50-12.5 Tablet] 1 tab PO BID 07/02/16 [History] Metformin [Glucophage] 1,000 mg PO HS 07/02/16 [History] Metformin [Glucophage] 1,500 mg PO QAM 07/02/16 [History] Metoprolol XL (24 HR) Succ [Toprol Xl] 50 mg PO QAM 07/02/16 [History] Metoprolol XL (24 HR) Succ [Toprol Xl] 100 mg PO HS 07/02/16 [History] Pravastatin Sodium [Pravachol] 20 mg PO BID 07/02/16 [History] Enoxaparin [Lovenox] 170 mg SQ Q12HCO #10 syringe 07/04/16 [Rx] Oxycodone HCl/Acetaminophen [Percocet 5-325 mg Tablet] 1 each PO Q6HR PRN #12 tablet 07/04/16 [Rx] Warfarin [Coumadin] 7.5 mg PO 1800 #7 tablet 07/04/16 [Rx] Allergies/Adverse Reactions: Allergies codeine Allergy (Verified 07/02/16 09:15) Hives - Notes to Outpatient Provider Pt has DVT on coumadin 7.5mg po qd now, bridged with lovenox because INR is still subtherapeutic. Please follow up PT/INR and adjust medication. Date of admission: 07/03/16 13:18 Primary care physician: Francoise Taylor, Consults: 07/03/16 17:47 consult to bread room hand [Consult to Nutrition] [CONS] Routine Comment: Pt is on coumadin Consulting Provider: NUTRITION Reason for Dietary Consult: Diet Education Discharging clinician: Emy Mccarty Anticipated date of discharge: 07/04/16 - Patient Status Disposition: Home, Self-Care Condition: Good Functional capacity at discharge: independent ambulation Overall status at discharge: patient is progressing back to baseline - Discharge Instructions Follow Up With: Clarke Quevedo DO [Resident] - 07/15/16 9:15 am (You will recieve a new patient packet. Please cancel if you are unable to make this appointment within 24 hours of this appointment. Please bring mediciations, insurance card, and photo ID. ) - Diet and Activity Activity: increase activity as tolerated Diet: diabetic diet Interval History: Mr. Nuñez is a 51 year old male with past medical history of hypertension, diabetes mellitus, severe diabetic neuropathy in both legs and prior episode of left lower extremity acute DVT in 2013. Since then he has been on anticoagulation with Coumadin 5 mg daily. He reports that his last INR check was April 2016 and the number was okay. He admits to changing his diet recently because he is trying to lose weight so he is eating more salad. For the 2 days, he developed severe bilateral leg pain that it became unbearable today so he came to our ED. No change in leg swelling. No shortness of breath. No chest pain. No bleeding. No abdominal pain. No urinary complaints. No headache. No syncope. No focal deficit. In our ED, venous doppler of LE showed bilateral acute DVT. INR was 1.1. He received subcutaneous Lovenox 1. Hospital course: Mr. Nuñez is a 51 year old male admitted for bilateral leg DVT. Patient has history of left-sided DVT on coumadin, he is noncompliant with his Coumadin dose and the diet. His INR is only 1.1 on admissionHe was treated with coumadin and bridged with lovenox. Oncology consult was called and recommend xeralto for compliance purpose. However, pt believe his insurance will not cover xarelto and he would like stick on coumadin and promise he will follow up with doctor and take medication regularly. Diet education was done bedside. Pt was also told by me that DVT can lead to PE, which may be lifethreatening. Pt verbalized understanding and promise to follow physician's instruction. He was taught how to inject lovenox by nurse. Follow up clinic was set up by delinquency prevention social worker. He had his lovenox in hand and coumadin prescribed. Pt was seen and examined today. He is awake, alert, oriented x 3, communicate well and understand what I told him. Still has moderate leg pain and mild lower leg swelling (B/L, Rt>Lt). Vitals are stable. Pt will discharge home with coumadin 7.5mg po qd and lovenox 170mg sc bid. He was instructed to repeat PT/ INR on 07/07/16 am (Thursday morning). Our resident clinic was confirmed that they will follow up the INR result and adjust medication. He was also prescribed percocet 5-325 1 tab q6hr PRN for pain. He was educated no alcohol, no other sedatives, no driving when he takes percocet. - Time Spent with Patient Total time spent providing and/or coordinating discharge services: 40 minutes. Greater than 30 minutes - Constitutional Vitals: Temp Pulse Resp BP Pulse Ox 98.1 F 89 16 102/67 98 07/04/16 13:11 07/04/16 13:11 07/04/16 13:11 07/04/16 13:11 07/04/16 13:11 General appearance: Present: cooperative, A&O X 3, pleasant, no acute distress, answers questions appropriately - Head Head exam: Present: atraumatic, normocephalic - Eye Eye exam: Present: PERRL, conjuntiva pink, sclera anicteric Pupils: Present: PERRL - Neck Neck exam general surgery: Present: supple, trachea midline. Absent: lymphadenopathy - Respiratory Respiratory exam: Present: CTAB. Absent: accessory muscle use, rales, rhonchi, wheezes - Cardiovascular Cardiovascular exam: Present: RRR, +S1, +S2. Absent: diastolic murmur, gallop, rubs, systolic murmur - GI/Abdominal GI/Abdominal exam: Present: normal bowel sounds, soft, no peritoneal signs. Absent: distended, tenderness - Extremities Exam Extremities exam: Present: calf tenderness (B/L), pedal edema, warm, radial pulses palpable and symetrical. Absent: cyanotic - Neurological Exam Neurological exam: Present: CN II-XII intact, oriented X3, no focal deficits. Absent: pronater drift, facial droop, speech deficit - Skin Skin exam: Present: dry, intact
[2016-07-04 16:01] VITALS: BP 183/99
[2016-07-04] MEDS ORDERED: *HR* Warfarin 7.5 MG TABLET PO ONE (18:00)
== END 2016-07-04 18:50 | disposition home or self-care (01) | DRG 197 ==
LOC: 3BNU 09:10 → EMEROO 09:10 → SUATTDRO 11:02 → 3BNU 12:01
PROVIDERS: ADMIT Internal Medicine; ATTEND Internal Medicine

== ENCOUNTER 2018-10-04 18:45 | Inpatient (IN) ==
[2018-10-04] MEDS: Dexmedetomidine HCl 400 MCG/100 ML MLS IVC SCH (20:53)
--- NOTE | 2018-10-04 20:58 | Internal Med History&Physical ---
<Nakita Philip N - Last Filed: 10/05/18 02:09> Date of Encounter: 10/05/18 Time of Encounter: 20:58 Internal Medicine - H&P: HPI Chief complaint: Acute respiratory failure Admitted From: Hospital to Hospital Transfer Plans for Post Hospital Care: Home History of present illness: Mr. Nuñez is a 53 year old male with a history of CHF, COPD, diabetes, hypertension, peripheral vascular disease, and multiple pulmonary emboli who arrived at [facility] as a transfer from [facility], where he presented with a chief complaint of severe shortness of breath. Patient's daughter was at the bedside, and HPI was obtained from her, as patient was intubated prior to hospital transfer. Patient was reportedly talking on the phone during the afternoon, when he became severely dyspneic, stating "I can't breathe". Patient's daughter reported that they immediately got in the car to go to the ED; however, patient became unresponsive a few moments later, and was taken to the nearest EMS station, where he was transported to the ED. ABG was obtained upon arrival at [facility], which demonstrated pH 7.02, PCO2 110, PO2 77, and HCO3 28.4, prompting intubation. Imaging studies were consistent with pulmonary edema versus pneumonia, and patient was administered one dose of lasix 60mg IVP. He was also noted to meet sepsis criteria, with an initial lactic acid of 3.8, and was started on broad-spectrum antimicrobial therapy with vancomycin and zosyn. He was then transferred to [facility] for further management. Patient's daughter reports that he has recently "given up on life". She reports that her brother approximately one year ago, and since then, her father has been largely noncompliant with medication therapy and reluctant to seek care for himself. He does live alone and is able to carry out ADLs without assistance. Patient's daughter reports a history of pulmonary emboli, stating that his most recent one occurred approximately one year ago, and was managed at [facility]. She says that the patient has never been worked up for a coagulopathy; however, she has two herself, including Factor V deficiency. To her knowledge, patient has had no recent fevers, chills, increased sputum production, or sick contacts. Past Med Surg Social Fam HX - Past Medical History Source: obtained from family Medical history: CHF, COPD, DVT, diabetes, hyperlipidemia, hypertension, myocardial infarction, peripheral artery disease, pulmonary embolus, other Additional medical history: Neuropathy Psychiatric history: no psych history - Past Surgical History Additional surgical history: Back Surgery x 3 - Social History Smoking Status: Current every day smoker Smokeless Tobacco Status: Yes Alcohol use: none Drug use: none - Family History Mother Living Status: Hx Family Cardiac Disorders: Yes (CHF) Father Living Status: Daughter Living Status: Still Living Hx Family Medical Disorders: Yes (Coagulopathies, factor V deficiency) Internal Medicine - H&P: Meds Fenofibrate 54 mg PO HS 07/02/16 [History] Gabapentin 800 mg PO QID 07/02/16 [History] Losartan/HCTZ [Hyzaar 50-12.5 Tablet] 1 tab PO BID 07/02/16 [History] Metoprolol XL (24 HR) Succ [Toprol Xl] 50 mg PO QAM 07/02/16 [History] Metoprolol XL (24 HR) Succ [Toprol Xl] 100 mg PO HS 07/02/16 [History] Pravastatin Sodium [Pravachol] 20 mg PO BID 07/02/16 [History] glyBURIDE [Glyburide] 2.5 mg PO QAM 07/02/16 [History] metFORMIN [Glucophage] 1,000 mg PO HS 07/02/16 [History] metFORMIN [Glucophage] 1,500 mg PO QAM 07/02/16 [History] Enoxaparin [Lovenox] 170 mg SQ Q12HCO #10 syringe 07/04/16 [Rx] Oxycodone HCl/Acetaminophen [Percocet 5-325 mg Tablet] 1 each PO Q6HR PRN #12 tablet 07/04/16 [Rx] Warfarin [Coumadin] 7.5 mg PO 1800 #7 tablet 07/04/16 [Rx] Allergy/AdvReac Type Severity Reaction Status Date / Time codeine Allergy Hives Verified 07/02/16 09:15 ROS unobtainable: due to endotracheal tube All Systems PM: A 10-system review of systems was performed and is negative for pertinent findings except as documented above in the HPI. - Constitutional Vitals: Resp BP Pulse Ox 16 150/98 97 10/04/18 20:33 10/04/18 20:33 10/04/18 20:33 Exam: GENERAL: Well-developed, well-nourished obese adult male sedated on the ventilator. HEENT: Atraumatic and normocephalic. Endotracheal tube in place. CARDIOVASCULAR: Regular rate and rhythm. S1 and S2 present. No murmurs, gallops, or rubs. RESPIRATORY: Limited exam secondary to body habitus. Diffusely decreased breath sounds bilaterally. Chest rises and falls symmetrically without accessory muscle use. GASTROINTESTINAL: Abdomen is soft, nontender, nondistended. Active bowel sounds present 4 quadrants. EXTREMITIES: 2+ pitting edema in bilateral lower extremities. SKIN: Warm, dry, and intact. Bilateral lower extremities demonstrate skin changes consistent with peripheral arterial/vascular disease. NEUROLOGIC: Patient is currently sedated but does follow commands. PSYCHIATRIC: Unable to assess secondary to sedation. Internal Med - H&P Results - Labs CBC & Chem 7: 10/04/18 21:33 10/04/18 21:33 - Assessment and Plan (1) Acute respiratory failure Current Visit: Yes Status: Acute Assessment and plan: Likely multifactorial etiology, including COPD exacerbation, pulmonary edema, pulmonary embolism, and pneumonia. - Continue sedation and mechanical ventilation. - Further plan as detailed below. Qualifiers: Respiratory failure complication: hypercapnia Qualified Code(s): J96.02 - Acute respiratory failure with hypercapnia (2) Sepsis Current Visit: Yes Status: Acute Assessment and plan: Patient met sepsis criteria at the time of initial presentation to the emergency department with tachycardia (HR 126), tachypnea (RR 24), elevated lactic acid o f 3.8, and possible pneumonia. Repeat lactic acid after intubation and initiation of antibiotic therapy was improved at 1.5; repeat value obtained in- house was WNL, at 1.3. Patient did have blood cultures obtained and broad-spectrum antimicrobial therapy initiated with vancomycin and zosyn prior to transfer to [facility]; however, fluid boluses were not administered due to amount of pulmonary edema present on imaging. CTA performed at [facility] was significant for diffuse bilateral airspace opacities and mild septal thickening, consistent with pulmonary edema versus pneumonia. CXR was repeated after arrival to the ICU, which demonstrated bibasilar airspace disease, greater on the right, consistent with pneumonia or edema. Plan: - Repeat blood cultures and MRSA nasal swab pending. Urine legionella and strep pneumo urine antigens were obtained, with negative results. - Continue broad-spectrum antimicrobial therapy with vancomycin, zosyn, and levaquin. - Repeat and trend daily CBC. Qualifiers: Sepsis type: sepsis due to unspecified organism Qualified Code(s): A41.9 - Sepsis, unspecified organism (3) Pneumonia Current Visit: Yes Status: Suspected Assessment and plan: Unknown infectious organism. Plan as detailed above under sepsis. Qualifiers: Pneumonia type: due to unspecified organism Laterality: right Lung location: lower lobe of lung Qualified Code(s): J18.1 - Lobar pneumonia, unspecified organism (4) Pulmonary embolism Current Visit: Yes Status: Suspected Assessment and plan: Suspect pulmonary embolism [place] [address], tachycardia, hypoxia, history of pulmonary emboli, direct relative with known coagulopathy, and noncompliance with home anticoagulation regimen. CTA was performed at [facility], which revealed no definintive pulmonary embolus; however, the study was noted to be limited by motion. Patient's daughter reports that the patient has a history of multiple pulmonary emboli, with his most recent occurring approximately one year ago. - Standard-dose heparin gtt initiated for treatment of suspected PE. - Consider repeat CTA tomorrow for further evaluation. - Consider hematology consultation for coagulopathy workup. Qualifiers: Pulmonary embolism type: unspecified Chronicity: unspecified Acute cor pulmonale presence: without acute cor pulmonale Qualified Code(s): I26.99 - Other pulmonary embolism without acute cor pulmonale (5) Acute exacerbation of CHF (congestive heart failure) Current Visit: Yes Status: Acute Assessment and plan: Patient's daughter reports a history of congestive heart failure, and imaging findings are consistent with pulmonary edema. Additionally, patient was noted to have an elevated BNP of 388. Patient does not have a prior echocardiogram per review of available records. - Echocardiogram pending. - Monitor and record I/O's and daily weights. - Lasix 40mg IVP BID. Qualifiers: Heart failure type: unspecified Qualified Code(s): I50.9 - Heart failure, unspecified (6) COPD exacerbation Current Visit: Yes Status: Acute Assessment and plan: Suspect COPD exacerbation secondary to pneumonia, CHF exacerbation, and possible pulmonary embolism. - Solu-medrol 40mg Q6H. - Duonebs Q4H. (7) Diabetes mellitus Current Visit: No Status: Acute Assessment and plan: History of diabetes managed with oral antihyperglycemic agents. Patient was noted to have elevated blood glucose in the 300s on metabolic panel, and A1c was noted to be elevated at 7.8. - Accuchecks and low-dose corrective SSI Q6H. Qualifiers: Diabetes mellitus type: type 2 Diabetes mellitus moth exterminator insulin use: without moth exterminator use Diabetes mellitus complication status: with neurologic complications Diabetes mellitus complication detail: with polyneuropathy Qualified Code(s): E11.42 - Type 2 diabetes mellitus with diabetic polyneuropathy (8) Depression Current Visit: Yes Status: Acute Assessment and plan: Patient's daughter reports that her father has "given up on life" over the last year, which was triggered by the of her brother; subsequently, patient has been reluctant to follow up with doctors appointments and adhere to medication therapy. - Consider psychiatric consultation prior to hospital discharge. Qualifiers: Depression Type: unspecified Qualified Code(s): F32.9 - Major depressive disorder, single episode, unspecified (9) Hypertension Current Visit: No Status: Chronic Assessment and plan: History of hypertension, with home medications of metoprolol and losartan/HCTZ. - Hold home antihypertensive therapy as blood pressure is in acceptable range at this time. Qualifiers: Hypertension type: essential hypertension Qualified Code(s): I10 - Essent ial (primary) hypertension (10) Peripheral vascular disease Current Visit: Yes Status: Chronic (11) DVT prophylaxis Current Visit: Yes Status: Acute Assessment and plan: - Heparin gtt. - Time Spent With Patient Total time spent is greater than 50% in coordination of care (as documented) at patient's floor/unit and/or counseling patient: <Moris Gotti - Last Filed: 10/05/18 05:34> Date of Encounter: 10/04/18 Internal Medicine - H&P: HPI History of present illness: Mr. Nuñez is a 53 year old male All Systems PM: A 10-system review of systems was performed and is negative for pertinent f indings except as documented above in the HPI. - Constitutional Vitals: Temp Pulse Resp BP Pulse Ox 100 F H 73 20 147/93 99 10/05/18 04:00 10/05/18 05:00 10/05/18 05:07 10/05/18 05:07 10/05/18 05:07 Internal Med - H&P Results - Labs CBC & Chem 7: 10/05/18 04:27 10/05/18 04:27 Labs: Short CBC 10/04/18 10/05/18 Range/Units 21:33 04:27 WBC 4.5 6.6 (4.3-11.1) K/mcL Hgb 14.2 14.3 (12.9-16.9) g/dL Hct 41.5 42.1 (37.5-50.1) % Plt Count 158 159 (140-400) K/mcL Neutrophils # 3.9 5.8 (1.6-8.9) K/mcL BMP 10/04/18 10/05/18 21:33 04:27 Sodium 136 135 L Potassium 4.2 4.4 Chloride 99 99 Carbon Dioxide 27 28 BUN 15 19 Creatinine 0.76 0.81 Glucose 317 H 303 H Calcium 8.6 9.2 Cardiac Enzymes 10/04/18 10/05/18 Range/Units 21:33 04:27 Troponin I 0.04 H* 0.06 H* (< 0.04) ng/mL Liver Function 10/04/18 Range/Units 21:33 Total Bilirubin 0.7 (0.3-1.0) mg/dL AST 22 (13-39) Units/L ALT 22 (7-52) Units/L Alkaline Phosphatase 76 (34-104) Units/L Albumin 3.8 (3.5-5.7) g/dL Urine 10/04/18 Range/Units 21:35 Urine Color Yellow (Yellow) Urine Clarity Clear (Clear) Urine pH 5.5 (5.0-8.0) pH Units Ur Specific [place] > 1.030 H (1.010-1.025) Urine Protein 100 H (Neg-Trace) mg/dL Urine Glucose (UA) >=1000 H (Normal) mg/dL - ABG Interpretation ABG results: 10/04/18 10/05/18 21:53 05:02 ABG pH 7.42 7.38 ABG pCO2 47 H 52 H ABG pO2 79 L 61 L ABG HCO3 30 H 31 H ABG Total CO2 32 H 32 H ABG O2 Saturation 96 90 L ABG Base Excess 5 H 4 H - Impressions ITS Impressions Chest X-Ray 10/04/18 20:49 IMPRESSION: Endotracheal tube with tip 6 cm above the adrianna. Ideally, the tube could be advanced by 1-2 cm. Enteric tube with tip beyond the [id number], at least through the gastroesophageal junction. Bibasilar airspace disease, greater on the right, pneumonia or edema. D/ / Felicity Ramirez Cha, MD / Felicity Ramirez Cha, MD Interpreting Provider: Feliicty Ramirez Cha, MD X-Ray 10/04/18 20:49 IMPRESSION: Enteric tube in place as above. D/ / Felicity Ramirez Cha, MD / Felicity Ramirez Cha, MD Interpreting Provider: Felicity Ramirez Cha, MD - Time Spent With Patient Total time spent is greater than 50% in coordination of care (as documented) at patient's floor/unit and/or counseling patient: - Attending Attestation I saw and evaluated the patient. I reviewed the residents note, performed my ow n physical examination and agree with findings and plan as documented in the residents note. Patient seen and examined on 10/04/18. Patient intubated in ICU, presented from [facility]. Possible flash pulmonary edema. Elevated D-dimer as well, patient has history of pulmonary embolisms. His shortness of breath was sudden onset, Lenny did perform a CTA but it was limited by motion, read as negative for PE. We will start heparin drip now, and consider repeating the CTA to definitively rule out PE. Will wait due to recent contrast use for prior CTA. Patient currently stable, no acute distress. Critical care consult for AM. Continue ICU monitoring.
[2018-10-04] MEDS: FentaNYL (PF) 1,000 MCG in 0.9 % Sodium Chloride 80 ML IVC SCH (21:08)
[2018-10-04 21:42] LABS: Bilirubin,Urine Negative (Negative); Blood,Urine Trace (Negative); Clarity,Urine Clear (Clear); Color,Urine Yellow (Yellow); Glucose,Urine (UA) >=1000 mg/dL (Normal); Ketones,Urine Negative (Negative); Leukocyte Esterase,Urine Negative (Negative); Nitrite,Urine Negative (Negative); PH,Urine 5.5 pH Units (5.0-8.0); Protein,Urine 100 mg/dL (Neg-Trace); Specific Gravity,Urine > 1.030 (1.010-1.025); Urobilinogen,Urine Normal (Normal)
[2018-10-04 21:44] LABS: Hyaline Casts,Urine None Seen per lpf (None-Few); Squamous Epithelial Cell,Urine Many per lpf (None-Few)
[2018-10-04 21:50] LABS: Basophils % 0.2 %; Eosinophils % 0.2 %; Hematocrit 41.5 % (37.5-50.1); Hemoglobin 14.2 g/dL (12.9-16.9); Immature Granulocytes % 0.7 % (0-4); Lymphocytes # 0.4 K/mcL (0.6-4.6); Lymphocytes % 8.7 %; Mean Corpuscular HGB Conc 34.2 g/dL (31.6-35.5); Mean Corpuscular Hemoglobin 30.3 pg (28.0-33.3); Mean Corpuscular Volume 88.5 fL (83.0-100.0); Mean Platelet Volume 10.3 fL (9.4-12.4); Monocytes # 0.1 K/mcL (0.0-1.3); Monocytes % 2.2 %; Neutrophils # 3.9 K/mcL (1.6-8.9); Platelet Count 158 K/mcL (140-400); Red Blood Count 4.69 M/mcL (4.19-5.50); Red Cell Distribution Width 12.7 % (11.5-14.5)
[2018-10-04 21:55] LABS: Bacteria,Urine Few per hpf (None-Few); Renal Epithelial Cells,Urine Few per hpf (None-Few)
[2018-10-04 21:57] LABS: ABG Base Excess 5 mEq/L (-2 to 3); ABG HCO3 30 mEq/L (21-27); ABG Oxygen Saturation 96 % (95-98); ABG PCO2 47 mmHg (35-45); ABG PH 7.42 pH Units (7.32-7.45); ABG PO2 79 mmHg (85-104); ABG TCO2 32 mEq/L (20-26); Blood Gas Modality ASSIST CONTROL; Blood Gas PEEP 5 cm H2O; Blood Gas Respiration Rate 16; Blood Gas VT 600 cc
[2018-10-04 21:58] LABS: Prothrombin Time 11.8 Seconds (9.4-12.1)
[2018-10-04 22:12] LABS: Alanine Aminotransferase 22 Units/L (7-52); Albumin 3.8 g/dL (3.5-5.7); Albumin/Globulin Ratio 1.2 (1.1-2.2); Alkaline Phosphatase 76 Units/L (34-104); Aspartate Amino Transferase 22 Units/L (13-39); BUN/Creatinine Ratio 20 (6-26); Bilirubin,Total 0.7 mg/dL (0.3-1.0); Blood Urea Nitrogen 15 mg/dL (6-20); Calcium 8.6 mg/dL (8.6-10.3); Carbon Dioxide 27 mEq/L (23-29); Chloride 99 mEq/L (98-107); Globulin 3.1 g/dL (2.4-3.5); Glucose 317 mg/dL (70-105); Magnesium 1.8 mg/dL (1.6-2.6); Osmolality,Calculated 295 (280-300); Potassium 4.2 mEq/L (3.5-5.1); Sodium 136 mEq/L (136-145); Total Protein 6.9 g/dL (6.4-8.9); eGFR For Non-African Americans > 60 (> 60)
[2018-10-04] MEDS ORDERED: *HR* Heparin 5,000 UNIT/ML VIAL IVP ONE (22:12)
[2018-10-04] MEDS ORDERED: Artificial Tears SOLN 15 ML BOTTLE BOTH EYES PRN (22:12)
[2018-10-04] MEDS ORDERED: *HR* Heparin 5,000 UNIT/ML VIAL IVP PRN ×2 (22:12)
[2018-10-04] MEDS ORDERED: Dextrose Gel 15 GM/37.5 ML TUBE PO PRN ×2 (22:13)
[2018-10-04] MEDS ORDERED: *HR* Dextrose 50 % in Water (Syg) 50 ML SYRINGE IVP PRN (22:13)
[2018-10-04] MEDS ORDERED: Naloxone 0.4 MG/ML INJ IVP PRN (22:13)
[2018-10-04] MEDS ORDERED: D5% in Water 1,000 ML IVC PRN (22:13)
[2018-10-04 22:17] LABS: Troponin I 0.04 ng/mL (< 0.04)
[2018-10-04] MEDS: Artificial Tears SOLN 15 ML BOTTLE BOTH EYES SCH (22:34)
[2018-10-04] MEDS: Heparin 25,000 UNIT/250 ML D5W 25,000 UNIT/250 ML IV.SOLN IVC SCH (22:39)
[2018-10-04 22:41] LABS: Estimated Average Glucose 177 mg/dl; Hemoglobin A1C 7.8 %
[2018-10-05] MEDS: Insulin LISPRO 300 UNITS/3 ML VIAL SQ SCH ×6 (00:07→23:49)
[2018-10-05] MEDS: Chlorhexidine Rinse 15 ML MOUTHWASH MM SCH ×3 (00:07→20:04)
[2018-10-05] MEDS: Dexmedetomidine HCl 400 MCG/100 ML MLS IVC SCH ×5 (01:16→23:48)
[2018-10-05] MEDS: Ipratropium/Albuterol Neb 3 ML IH SCH ×6 (03:44→23:55)
[2018-10-05] MEDS: Artificial Tears SOLN 15 ML BOTTLE BOTH EYES SCH ×6 (04:18→23:50)
[2018-10-05 04:45] LABS: VBG Ionized Calcium 1.11 mmol/L (1.15-1.35)
[2018-10-05 04:46] LABS: Basophils % 0.2 %; Hematocrit 42.1 % (37.5-50.1); Hemoglobin 14.3 g/dL (12.9-16.9); Immature Granulocytes % 0.6 % (0-4); Lymphocytes # 0.6 K/mcL (0.6-4.6); Lymphocytes % 8.6 %; Mean Corpuscular Hemoglobin 29.9 pg (28.0-33.3); Mean Corpuscular Volume 88.1 fL (83.0-100.0); Mean Platelet Volume 10.3 fL (9.4-12.4); Monocytes # 0.2 K/mcL (0.0-1.3); Monocytes % 2.7 %; Neutrophils # 5.8 K/mcL (1.6-8.9); Platelet Count 159 K/mcL (140-400); Red Blood Count 4.78 M/mcL (4.19-5.50); Red Cell Distribution Width 12.5 % (11.5-14.5); Segmented Neutrophils % 87.9 %
[2018-10-05 04:54] LABS: INR 1.1; Prothrombin Time 12.1 Seconds (9.4-12.1)
[2018-10-05 05:04] LABS: BUN/Creatinine Ratio 23 (6-26); Blood Urea Nitrogen 19 mg/dL (6-20); Calcium 9.2 mg/dL (8.6-10.3); Carbon Dioxide 28 mEq/L (23-29); Chloride 99 mEq/L (98-107); Glucose 303 mg/dL (70-105); Magnesium 1.7 mg/dL (1.6-2.6); Osmolality,Calculated 294 (280-300); Phosphorous 2.4 mg/dL (2.7-4.5); Potassium 4.4 mEq/L (3.5-5.1); Sodium 135 mEq/L (136-145); eGFR For Non-African Americans > 60 (> 60)
[2018-10-05 05:06] LABS: ABG Base Excess 4 mEq/L (-2 to 3); ABG HCO3 31 mEq/L (21-27); ABG Oxygen Saturation 90 % (95-98); ABG PCO2 52 mmHg (35-45); ABG PH 7.38 pH Units (7.32-7.45); ABG PO2 61 mmHg (85-104); ABG TCO2 32 mEq/L (20-26); Blood Gas PEEP 5 cm H2O; Blood Gas Respiration Rate 16; Blood Gas VT 600 cc
[2018-10-05] MEDS: Pantoprazole 40 MG VIAL IVP SCH (05:44)
[2018-10-05] MEDS: MethylPREDNISolone 40 MG/ML VIAL IVP SCH ×4 (05:44→23:49)
[2018-10-05] MEDS: FentaNYL (PF) 1,000 MCG in 0.9 % Sodium Chloride 80 ML IVC SCH ×2 (05:49→16:34)
[2018-10-05] MEDS: Levofloxacin 750 MG/150 ML 750 MG/150 ML BAG IVPB SCH (07:29)
[2018-10-05] MEDS: Piperacillin/Tazobactam 3.375 GM in 0.9 % Sodium Chloride Mini Bag 100 ML IVPB SCH ×3 (07:29→23:49)
[2018-10-05] MEDS: Furosemide 40 MG/4 ML VIAL IVP SCH ×2 (07:30→16:37)
[2018-10-05] MEDS ORDERED: Isovue-370 500 ML BOTTLE IVP ONE (08:14)
[2018-10-05] MEDS ORDERED: Chlorhexidine Rinse 15 ML MOUTHWASH MM SCH ×2 (09:00→22:54)
[2018-10-05] MEDS ORDERED: Perflutren Lipid Microsphere 1.3 ML in 0.9 % Sodium Chloride 8.7 ML IVP ONE (09:09)
[2018-10-05] MEDS: Heparin 25,000 UNIT/250 ML D5W 25,000 UNIT/250 ML IV.SOLN IVC SCH ×2 (11:13→19:47)
--- NOTE | 2018-10-05 11:45 | Pulmonology History & Physical ---
Date of Encounter: 10/05/18 History of Present Illness HPI: Mr. Nuñez is a 53 year old male Past Med Surg Social Fam HX - Past Medical History Medical history: CHF, COPD, DVT, diabetes, hyperlipidemia, hypertension, myocardial infarction, peripheral artery disease, pulmonary embolus, other Additional medical history: Neuropathy Psychiatric history: no psych history - Past Surgical History Additional surgical history: Back Surgery x 3 - Social History Smoking Status: Current every day smoker Smokeless Tobacco Status: Yes Alcohol use: none Drug use: none - Family History Mother Living Status: Hx Family Cardiac Disorders: Yes (CHF) Father Living Status: Daughter Living Status: Still Living Hx Family Medical Disorders: Yes (Coagulopathies, factor V deficiency) Medications and Allergies Fenofibrate 54 mg PO HS 07/02/16 [History] Gabapentin 800 mg PO QID 07/02/16 [History] Losartan/HCTZ [Hyzaar 50-12.5 Tablet] 1 tab PO BID 07/02/16 [History] Metoprolol XL (24 HR) Succ [Toprol Xl] 50 mg PO QAM 07/02/16 [History] Metoprolol XL (24 HR) Succ [Toprol Xl] 100 mg PO HS 07/02/16 [History] Pravastatin Sodium [Pravachol] 20 mg PO BID 07/02/16 [History] glyBURIDE [Glyburide] 2.5 mg PO QAM 07/02/16 [History] metFORMIN [Glucophage] 1,000 mg PO HS 07/02/16 [History] metFORMIN [Glucophage] 1,500 mg PO QAM 07/02/16 [History] Enoxaparin [Lovenox] 170 mg SQ Q12HCO #10 syringe 07/04/16 [Rx] Oxycodone HCl/Acetaminophen [Percocet 5-325 mg Tablet] 1 each PO Q6HR PRN #12 tablet 07/04/16 [Rx] Warfarin [Coumadin] 7.5 mg PO 1800 #7 tablet 07/04/16 [Rx] Allergy/AdvReac Type Severity Reaction Status Date / Time codeine Allergy Hives Verified 07/02/16 09:15 All Systems: The remainder of the systems were reviewed and are negative Physical Examination Vital Signs: Vital Signs, Last 4 Hours Temp Pulse Resp BP Pulse Ox 10/05/18 10:00 70 20 141/86 98 10/05/18 09:45 23 141/81 97 10/05/18 09:35 68 21 141/87 98 10/05/18 08:29 99.4 F Results - Laboratory Findings CBC and BMP: 10/05/18 04:27 10/05/18 04:27 ABG ABG pH 7.38 pH Units (7.32-7.45) 10/05/18 05:02 ABG pCO2 52 mmHg (35-45) H 10/05/18 05:02 ABG pO2 61 mmHg (85-104) L 10/05/18 05:02 ABG O2 Saturation 90 % (95-98) L 10/05/18 05:02 PT/INR, D-dimer PT 12.1 Seconds (9.4-12.1) 10/05/18 04:27 72283 ng/mLFEU (0-500) H 10/04/18 21:33 Abnormal lab findings: Abnormal lab results 0.4 K/mcL (0.6-4.6) L 10/04/18 21:33 48486 ng/mLFEU (0-500) H 10/04/18 21:33 Heparin Anti-Xa, Unfract 0.00 IU/mL (0.30-0.70) L 10/04/18 21:33 ABG pCO2 52 mmHg (35-45) H 10/05/18 05:02 ABG pO2 61 mmHg (85-104) L 10/05/18 05:02 ABG HCO3 31 mEq/L (21-27) H 10/05/18 05:02 ABG Total CO2 32 mEq/L (20-26) H 10/05/18 05:02 ABG O2 Saturation 90 % (95-98) L 10/05/18 05:02 ABG Base Excess 4 mEq/L (-2 to 3) H 10/05/18 05:02 Sodium 135 mEq/L (136-145) L 10/05/18 04:27 Glucose 303 mg/dL (70-105) H 10/05/18 04:27 POC Glucose 263 mg/dL (70-99) H 10/05/18 06:30 7.8 % (-5.6) H 10/04/18 21:33 Venous Ioniz Calcium 1.11 mmol/L (1.15-1.35) L 10/05/18 04:43 Phosphorus 2.4 mg/dL (2.7-4.5) L 10/05/18 04:27 0.06 ng/mL (< 0.04) H* 10/05/18 09:23 B-Natriuretic Peptide 388 pg/mL (Less than 100) H 10/04/18 21:33 0.41 ng/mL (0.00-0.15) H 10/05/18 09:23 Ur Specific [place] > 1.030 (1.010-1.025) H 10/04/18 21:35 100 mg/dL (Neg-Trace) H 10/04/18 21:35 >=1000 mg/dL (Normal) H 10/04/18 21:35 Trace (Negative) H 10/04/18 21:35 3-5 per hpf (0-3) H 10/04/18 21:35 5-15 per hpf (0-3) H 10/04/18 21:35 Ur Squamous Epith Cells Many per lpf (None-Few) H 10/04/18 21:35 Ur Culture Indicated? YES (NO) A 10/04/18 21:35 Positive (Negative) A 10/05/18 08:20
--- NOTE | 2018-10-05 11:50 | Pulmonology Consult Note ---
<Winter Kim - Last Filed: 10/05/18 15:10> Date of Encounter: 10/05/18 Time of Encounter: 08:30 Assessment and Plan (1) Acute respiratory failure Current Visit: Yes Status: Acute Tentative the ED complaining of shortness of breath at the outside facility had respiratory acidosis with subsequently intubated Currently intubated, exacerbation likely secondary to CHF versus COPD exacerbation versus pneumonia -Continue Solu-Medrol 40 mg IV every 6 hours -Continue DuoNeb -Continue mechanical ventilation Qualifiers: Respiratory failure complication: hypoxia and hypercapnia Qualified Code(s): J96.01 - Acute respiratory failure with hypoxia; J96.02 - Acute respiratory failure with hypercapnia (2) Pneumonia Current Visit: Yes Status: Acute Right lower lobe pneumonia per CT imaging Resented to the ED due to acute respiratory failure -Continue bronchodilators -blood cultures pending -MRSA nasal swab was positive but given no recent hospital admissions hold off vancomycin -continue Levaquin and Zosyn for broad-spectrum management Qualifiers: Pneumonia type: due to unspecified organism Laterality: right Lung location: lower lobe of lung Qualified Code(s): J18.1 - Lobar pneumonia, unspecified organism (3) Pulmonary embolism Current Visit: Yes Status: Chronic At presentation d-dimer was 13,590 Does have history of pulmonary embolism given history of factor V Leiden Had a CTA of the chest since admission does not show any pulmonary embolism -Continue heparin drip DVT prevention and given history of previous PE -Will need to transition to oral anticoagulation once he can tolerate diet Qualifiers: Pulmonary embolism type: unspecified Chronicity: unspecified Acute cor pulmonale presence: without acute cor pulmonale Qualified Code(s): I26.99 - Other pulmonary embolism without acute cor pulmonale (4) Acute exacerbation of CHF (congestive heart failure) Current Visit: Yes Status: Acute Presented to the ED due to acute shortness of breath BMP admission was 388 No previous echo on file does have an echo at this admission optimal due to body habitus EF grossly normal at 50% with moderate concentric left ventricular hypertrophy Chest x-ray shows pulmonary edema -Continue 40 mg IV Lasix. -Continue monitoring intake and output Qualifiers: Heart failure type: unspecified Qualified Code(s): I50.9 - Heart failure, unspecified (5) COPD (chronic obstructive pulmonary disease) Current Visit: Yes Status: Acute Suspected history of COPD although not previously diagnosed Chest x-ray shows atelectasis Current every day smoker -Continue Solu-Medrol 40 mg IV every 6 hours -Continue scheduled DuoNeb Qualifiers: COPD type: unspecified COPD Qualified Code(s): J44.9 - Chronic obstructive pulmonary disease, unspecified (6) Diabetes mellitus Current Visit: Yes Status: Acute History of diabetes unknown if currently taking oral medication at home as he has been noncompliant Glucose on admission was noted to be in the 300s A1c at this admission is 7.8 -Continue Accu-Checks with low-dose sign scale Qualifiers: Diabetes mellitus type: type 2 Diabetes mellitus fci insulin use: without predatory animal exterminator use Diabetes mellitus complication status: with unspecified complications Qualified Code(s): E11.8 - Type 2 diabetes mellitus with unspecified complications (7) Hypertension Current Visit: Yes Status: Acute History of hypertension, home medications is normal show any recent antihypertensives -10 mg Hydralazine when necessary ordered w Qualifiers: Hypertension type: essential hypertension Qualified Code(s): I10 - Essential (primary) hypertension (8) DVT prophylaxis Current Visit: Yes Status: Acute Currently on heparin drip History of Present Illness Consult date: 10/05/18 History of present illness: Mr. Nuñez is a 53-year-old male with past medical history of CHF, COPD, diabetes, hypertension, peripheral vascular disease and previous pulmonary embolism arrived to the ED from [facility] after complaining of severe shortness of breath. Information was obtained from chart review. He complained of shortness of breath to his daughter earlier yesterday. Upon presentation to [facility] ED his ABG showed pH of 7.02, PCO2 of 110 with PaO2 of 77. He was subsequently intubated and brought into [facility]. His lactic acid initially was 3.8, his repeat lactic acid 1.3. The ED he was started on broad-spectrum antibiotics including vancomycin, Zosyn. Per chart review the daughter reported her father has decreased hearing for himself after her brother recently one year ago. He has history of factor V Leiden deficiency and does not take any anticoagulation at home. Since admission he had a CTA of the chest which showed right lower lobe pneumonia. No acute pulmonary embolism was visualized. He is currently on a heparin drip given his history of PE and DVT. Should transition to oral anticoagulation. Past Med Surg Social Fam HX - Past Medical History Medical history: CHF, COPD, DVT, diabetes, hyperlipidemia, hypertension, myocardial infarction, peripheral artery disease, pulmonary embolus, other Additional medical history: Neuropathy Psychiatric history: no psych history - Past Surgical History Additional surgical history: Back Surgery x 3 - Social History Smoking Status: Current every day smoker Smokeless Tobacco Status: Yes Alcohol use: none Drug use: none - Family History Mother Living Status: Hx Family Cardiac Disorders: Yes (CHF) Father Living Status: Daughter Living Status: Still Living Hx Family Medical Disorders: Yes (Coagulopathies, factor V deficiency) Medications and Allergies Gabapentin 800 mg PO QID 07/02/16 [History] Allergy/AdvReac Type Severity Reaction Status Date / Time codeine Allergy Hives Verified 07/02/16 09:15 ROS unobtainable: due to mental status All Systems: The remainder of the systems were reviewed and are negative Physical Examination Vital Signs: Vital Signs, Last 4 Hours Temp Pulse Resp BP Pulse Ox 10/05/18 10:00 70 20 141/86 98 10/05/18 09:45 23 141/81 97 10/05/18 09:35 68 21 141/87 98 10/05/18 08:29 99.4 F General appearance: no acute distress, other (Intubated) Eyes: nonicteric ENT: oropharynx moist Neck: supple Effort: normal Auscultation: bilateral: diminished breath sounds (Bilateral lower lobes) Cardiovascular: regular rate and rhythm Gastrointestinal: normoactive bowel sounds, soft, non-tender Integumentary: normal Extremities: edema (Right leg more edematous than left), other (Anesthesia bilateral lower extremity) non-focal exam, pupils equal and round mood appropriate, affect normal (Intubated but responds to questions with head movement) Ventilator Settings Ventilator Settings: Ventilator Settings, Last 8 Hours Ventilator Tidal Volume 550 Setting Ventilator Tidal Volume 550 Setting Ventilator Tidal Volume 550 Setting Ventilator Tidal Volume 600 Setting Ventilator Tidal Volume 600 Setting Ventilator Tidal Volume 600 Setting Ventilator Tidal Volume 600 Setting Ventilator Tidal Volume 600 Setting Ventilator Tidal Volume 600 Setting Ventilator Tidal Volume 600 Setting Ventilator Respiratory Rate 16 Setting Ventilator Respiratory Rate 16 Setting Ventilator Respiratory Rate 16 Setting Ventilator Respiratory Rate 16 Setting Ventilator Respiratory Rate 16 Setting Ventilator Respiratory Rate 16 Setting Ventilator Respiratory Rate 16 Setting Ventilator Respiratory Rate 16 Setting Ventilator Respiratory Rate 16 Setting Ventilator Respiratory Rate 16 Setting Actual Respiratory Rate 21 Actual Respiratory Rate 23 Actual Respiratory Rate 21 Actual Respiratory Rate 22 Actual Respiratory Rate 22 Actual Respiratory Rate 23 Actual Respiratory Rate 20 Actual Respiratory Rate 20 Actual Respiratory Rate 18 Positive End Expiratory 5 Pressure Positive End Expiratory 5 Pressure Positive End Expiratory 5 Pressure Positive End Expiratory 5 Pressure Positive End Expiratory 5 Pressure Positive End Expiratory 5 Pressure Positive End Expiratory 5 Pressure Positive End Expiratory 5 Pressure Positive End Expiratory 5 Pressure Positive End Expiratory 5 Pressure Peak Inspiratory Airway 8.5 Pressure Peak Inspiratory Airway 8 Pressure Peak Inspiratory Airway 6.6 Pressure Peak Inspiratory Airway 8.1 Pressure Peak Inspiratory Airway 8 Pressure Peak Inspiratory Airway 11 Pressure Peak Inspiratory Airway 12 Pressure Peak Inspiratory Airway 11 Pressure Peak Inspiratory Airway 11 Pressure Results - Laboratory Findings CBC and BMP: 10/05/18 04:27 10/05/18 04:27 ABG ABG pH 7.38 pH Units (7.32-7.45) 10/05/18 05:02 ABG pCO2 52 mmHg (35-45) H 10/05/18 05:02 ABG pO2 61 mmHg (85-104) L 10/05/18 05:02 ABG O2 Saturation 90 % (95-98) L 10/05/18 05:02 PT/INR, D-dimer PT 12.1 Seconds (9.4-12.1) 10/05/18 04:27 72309 ng/mLFEU (0-500) H 10/04/18 21:33 Abnormal lab findings: Abnormal lab results 0.4 K/mcL (0.6-4.6) L 10/04/18 21:33 44499 ng/mLFEU (0-500) H 10/04/18 21:33 Heparin Anti-Xa, Unfract 0.00 IU/mL (0.30-0.70) L 10/04/18 21:33 ABG pCO2 52 mmHg (35-45) H 10/05/18 05:02 ABG pO2 61 mmHg (85-104) L 10/05/18 05:02 ABG HCO3 31 mEq/L (21-27) H 10/05/18 05:02 ABG Total CO2 32 mEq/L (20-26) H 10/05/18 05:02 ABG O2 Saturation 90 % (95-98) L 10/05/18 05:02 ABG Base Excess 4 mEq/L (-2 to 3) H 10/05/18 05:02 Sodium 135 mEq/L (136-145) L 10/05/18 04:27 Glucose 303 mg/dL (70-105) H 10/05/18 04:27 POC Glucose 263 mg/dL (70-99) H 10/05/18 06:30 7.8 % (-5.6) H 10/04/18 21:33 Venous Ioniz Calcium 1.11 mmol/L (1.15-1.35) L 10/05/18 04:43 Phosphorus 2.4 mg/dL (2.7-4.5) L 10/05/18 04:27 0.06 ng/mL (< 0.04) H* 10/05/18 09:23 B-Natriuretic Peptide 388 pg/mL (Less than 100) H 10/04/18 21:33 0.41 ng/mL (0.00-0.15) H 10/05/18 09:23 Ur Specific [place] > 1.030 (1.010-1.025) H 10/04/18 21:35 100 mg/dL (Neg-Trace) H 10/04/18 21:35 >=1000 mg/dL (Normal) H 10/04/18 21:35 Trace (Negative) H 10/04/18 21:35 3-5 per hpf (0-3) H 10/04/18 21:35 5-15 per hpf (0-3) H 10/04/18 21:35 Ur Squamous Epith Cells Many per lpf (None-Few) H 10/04/18 21:35 Ur Culture Indicated? YES (NO) A 10/04/18 21:35 Positive (Negative) A 10/05/18 08:20 - Microbiology Findings Microbiology Findings: Microbiology, Last 48 Hours 10/04/18 21:35 Urine Culture - Preliminary Urine,Clean Catch Culture is incubating. 10/04/18 21:35 Legionella Antigen - Final Urine,[place] Streptococcus pneumoniae Antigen (M - Final 10/04/18 21:33 Blood Culture - Preliminary Peripheral Venipuncture Culture is incubating and being continuously monitored for growth. Final report to follow. 10/04/18 21:33 Blood Culture - Preliminary Peripheral Venipuncture Culture is incubating and being continuously monitored for growth. Final report to follow. - Clinical Findings Intake & Output: Intake & Output 10/04/18 10/05/18 10/05/18 23:59 07:59 15:59 Intake Total 22.2 / 22.2 944.8 / 1371.8 427 / 1371.8 Output Total 600 / 600 480 / 2555 2075 / 2555 Balance -577.8 / -577.8 464.8 / -1183.2 -1648 / -1183.2 Weight 173.8 kg 173.8 kg Consult Discharge Plan - Plan Referrals: Mindy Santos, HOME CARE ASSOCIATE [Primary Care Provider] - <Laura Khanna - Last Filed: 10/05/18 23:33> Date of Encounter: 10/05/18 All Systems: The remainder of the systems were reviewed and are negative Physical Examination Vital Signs: Vital Signs, Last 4 Hours Temp Pulse Resp BP Pulse Ox 10/05/18 23:00 73 22 149/89 97 10/05/18 22:00 78 26 149/82 97 10/05/18 21:31 27 139/74 96 10/05/18 21:00 68 24 139/74 97 10/05/18 20:00 69 24 133/75 98 10/05/18 19:37 98.7 F 10/05/18 19:36 25 137/75 97 Ventilator Settings Ventilator Settings: Ventilator Settings, Last 8 Hours Ventilator Tidal Volume 550 Setting Ventilator Tidal Volume 550 Setting Ventilator Tidal Volume 550 Setting Ventilator Tidal Volume 550 Setting Ventilator Tidal Volume 550 Setting Ventilator Tidal Volume 550 Setting Ventilator Tidal Volume 550 Setting Ventilator Tidal Volume 550 Setting Ventilator Tidal Volume 550 Setting Ventilator Tidal Volume 550 Setting Ventilator Tidal Volume 550 Setting Ventilator Respiratory Rate 16 Setting Ventilator Respiratory Rate 16 Setting Ventilator Respiratory Rate 16 Setting Ventilator Respiratory Rate 16 Setting Ventilator Respiratory Rate 16 Setting Ventilator Respiratory Rate 16 Setting Ventilator Respiratory Rate 16 Setting Ventilator Respiratory Rate 16 Setting Ventilator Respiratory Rate 16 Setting Ventilator Respiratory Rate 16 Setting Ventilator Respiratory Rate 16 Setting Actual Respiratory Rate 23 Actual Respiratory Rate 26 Actual Respiratory Rate 27 Actual Respiratory Rate 25 Actual Respiratory Rate 24 Actual Respiratory Rate 25 Actual Respiratory Rate 23 Actual Respiratory Rate 26 Actual Respiratory Rate 23 Actual Respiratory Rate 23 Actual Respiratory Rate 24 Positive End Expiratory 5 Pressure Positive End Expiratory 5 Pressure Positive End Expiratory 5 Pressure Positive End Expiratory 5 Pressure Positive End Expiratory 5 Pressure Positive End Expiratory 5 Pressure Positive End Expiratory 5 Pressure Positive End Expiratory 5 Pressure Positive End Expiratory 5 Pressure Positive End Expiratory 5 Pressure Positive End Expiratory 5 Pressure Peak Inspiratory Airway 8 Pressure Peak Inspiratory Airway 7 Pressure Peak Inspiratory Airway 16 Pressure Peak Inspiratory Airway 5.9 Pressure Peak Inspiratory Airway 5.1 Pressure Peak Inspiratory Airway 8 Pressure Peak Inspiratory Airway 9.3 Pressure Peak Inspiratory Airway 8 Pressure Peak Inspiratory Airway 11 Pressure Peak Inspiratory Airway 12 Pressure Peak Inspiratory Airway 7.6 Pressure Results - Laboratory Findings CBC and BMP: 10/05/18 04:27 10/05/18 04:27 ABG ABG pH 7.38 pH Units (7.32-7.45) 10/05/18 05:02 ABG pCO2 52 mmHg (35-45) H 10/05/18 05:02 ABG pO2 61 mmHg (85-104) L 10/05/18 05:02 ABG O2 Saturation 90 % (95-98) L 10/05/18 05:02 PT/INR, D-dimer PT 12.1 Seconds (9.4-12.1) 10/05/18 04:27 79830 ng/mLFEU (0-500) H 10/04/18 21:33 Abnormal lab findings: Abnormal lab results 0.4 K/mcL (0.6-4.6) L 10/04/18 21:33 32717 ng/mLFEU (0-500) H 10/04/18 21:33 Heparin Anti-Xa, Unfract 0.17 IU/mL (0.30-0.70) L 10/05/18 12:31 ABG pCO2 52 mmHg (35-45) H 10/05/18 05:02 ABG pO2 61 mmHg (85-104) L 10/05/18 05:02 ABG HCO3 31 mEq/L (21-27) H 10/05/18 05:02 ABG Total CO2 32 mEq/L (20-26) H 10/05/18 05:02 ABG O2 Saturation 90 % (95-98) L 10/05/18 05:02 ABG Base Excess 4 mEq/L (-2 to 3) H 10/05/18 05:02 Sodium 135 mEq/L (136-145) L 10/05/18 04:27 Glucose 303 mg/dL (70-105) H 10/05/18 04:27 POC Glucose 298 mg/dL (70-99) H 10/05/18 18:40 7.8 % (-5.6) H 10/04/18 21:33 Venous Ioniz Calcium 1.11 mmol/L (1.15-1.35) L 10/05/18 04:43 Phosphorus 2.4 mg/dL (2.7-4.5) L 10/05/18 04:27 0.06 ng/mL (< 0.04) H* 10/05/18 09:23 B-Natriuretic Peptide 388 pg/mL (Less than 100) H 10/04/18 21:33 0.41 ng/mL (0.00-0.15) H 10/05/18 09:23 Ur Specific [place] > 1.030 (1.010-1.025) H 10/04/18 21:35 100 mg/dL (Neg-Trace) H 10/04/18 21:35 >=1000 mg/dL (Normal) H 10/04/18 21:35 Trace (Negative) H 10/04/18 21:35 3-5 per hpf (0-3) H 10/04/18 21:35 5-15 per hpf (0-3) H 10/04/18 21:35 Ur Squamous Epith Cells Many per lpf (None-Few) H 10/04/18 21:35 Ur Culture Indicated? YES (NO) A 10/04/18 21:35 Positive (Negative) A 10/05/18 08:20 - Microbiology Findings Microbiology Findings: Microbiology, Last 48 Hours 10/04/18 21:35 Urine Culture - Preliminary Urine,Clean Catch Culture is incubating. 10/04/18 21:35 Legionella Antigen - Final Urine,[place] Streptococcus pneumoniae Antigen (M - Final 10/04/18 21:33 Blood Culture - Preliminary Peripheral Venipuncture Culture is incubating and being continuously monitored for growth. Final report to follow. 10/04/18 21:33 Blood Culture - Preliminary Peripheral Venipuncture Culture is incubating and being continuously monitored for growth. Final report to follow. - Clinical Findings Intake & Output: Intake & Output 10/05/18 10/05/18 10/05/18 07:59 15:59 23:59 Intake Total 944.8 / 2239.8 703.9 / 2239.8 591.1 / 2239.8 Output Total 480 / 5380 2175 / 5380 2725 / 5380 Balance 464.8 / -3140.2 -1471.1 / -3140.2 -2133.9 / -3140.2 Weight 173.8 kg - Attending Attestation I saw and evaluated this patient and my medical decision-making was reviewed with the Resident Physician. I agree with the documented findings, disposition and treatment plan as described except to the extent set forth below. We independently had [id number] contact with the patient I spent 55 minutes of Critical Care time with this patient. It involved decision making of high complexity to assess, manipulate, and support vital organ system failure and/or to prevent further life threatening deterioration of the patient's condition. The time involved in the performance of separately reportable procedures was not counted toward critical care time. Patient seen and examined at bedside Labs, radiology, chart personally reviewed. Management was reviewed during multidisciplinary critical care rounds. TELEPHONE OPERATORS SUPERVISOR: Patient is more arousable following commands understanding complex discussions. no Focal neurological deficits Pulm: Patient has acceptable V/Q mismatch low tidal volume strategy acceptable oxygenation and ventilation complicated by a hydrostatic pulmonary edema and also possible pneumonia Cards: Patient is hemodynamically stable FEN-GI: According to nutrition Renal: Labs and output were reviewed ID: Patient has possible right lower lobe pneumonia to cover with broad-spectrum antibiotics. Stop Vancomycin low likelihood for MRSA pneumonia Heme/Onc: Labs reviewed Endo: Glucose Monitored Integ/MSK: Skin Care per routine ICU Nursing Protocol to prevent ulcers. Lines: All lines examined without evidence of infection : Dispo: Critically ill CODE: Full code
[2018-10-05] MEDS ORDERED: Aminoglycoside Consult 1 EACH MC ONE (15:14)
[2018-10-06] MEDS: FentaNYL (PF) 1,000 MCG in 0.9 % Sodium Chloride 80 ML IVC SCH (02:38)
[2018-10-06] MEDS: Heparin 25,000 UNIT/250 ML D5W 25,000 UNIT/250 ML IV.SOLN IVC SCH ×3 (02:40→22:28)
[2018-10-06 02:42] LABS: Basophils % 0.1 %; Hematocrit 40.5 % (37.5-50.1); Hemoglobin 13.8 g/dL (12.9-16.9); Immature Granulocytes % 0.4 % (0-4); Lymphocytes # 0.5 K/mcL (0.6-4.6); Lymphocytes % 6.3 %; Mean Corpuscular HGB Conc 34.1 g/dL (31.6-35.5); Mean Platelet Volume 10.4 fL (9.4-12.4); Monocytes # 0.3 K/mcL (0.0-1.3); Monocytes % 3.9 %; Neutrophils # 6.8 K/mcL (1.6-8.9); Platelet Count 142 K/mcL (140-400); Red Cell Distribution Width 12.6 % (11.5-14.5); Segmented Neutrophils % 89.3 %
[2018-10-06 03:01] LABS: BUN/Creatinine Ratio 35 (6-26); Blood Urea Nitrogen 28 mg/dL (6-20); Calcium 9.2 mg/dL (8.6-10.3); Carbon Dioxide 31 mEq/L (23-29); Chloride 97 mEq/L (98-107); Glucose 291 mg/dL (70-105); Osmolality,Calculated 298 (280-300); Potassium 4.1 mEq/L (3.5-5.1); Sodium 136 mEq/L (136-145); eGFR For Non-African Americans > 60 (> 60)
[2018-10-06] MEDS: Ipratropium/Albuterol Neb 3 ML IH SCH ×5 (03:41→20:28)
[2018-10-06] MEDS: Artificial Tears SOLN 15 ML BOTTLE BOTH EYES SCH ×2 (03:42→08:21)
[2018-10-06] MEDS: Dexmedetomidine HCl 400 MCG/100 ML MLS IVC SCH (03:43)
[2018-10-06] MEDS: Insulin LISPRO 300 UNITS/3 ML VIAL SQ SCH ×4 (03:44→16:34)
[2018-10-06 04:11] LABS: ABG Base Excess 7 mEq/L (-2 to 3); ABG HCO3 33 mEq/L (21-27); ABG Oxygen Saturation 93 % (95-98); ABG PCO2 52 mmHg (35-45); ABG PH 7.41 pH Units (7.32-7.45); ABG PO2 67 mmHg (85-104); ABG TCO2 35 mEq/L (20-26); Blood Gas Modality ASSIST CONTROL; Blood Gas PEEP 5 cm H2O; Blood Gas Respiration Rate 16; Blood Gas VT 550 cc
[2018-10-06] MEDS: Pantoprazole 40 MG VIAL IVP SCH (05:21)
[2018-10-06] MEDS: MethylPREDNISolone 40 MG/ML VIAL IVP SCH ×3 (05:21→17:51)
[2018-10-06] MEDS: Furosemide 40 MG/4 ML VIAL IVP SCH ×2 (08:18→16:13)
[2018-10-06] MEDS: Piperacillin/Tazobactam 3.375 GM in 0.9 % Sodium Chloride Mini Bag 100 ML IVPB SCH ×2 (08:19→16:14)
[2018-10-06] MEDS: Levofloxacin 750 MG/150 ML 750 MG/150 ML BAG IVPB SCH (08:20)
[2018-10-06] MEDS: Chlorhexidine Rinse 15 ML MOUTHWASH MM SCH (08:20)
--- NOTE | 2018-10-06 11:44 | Pulmonology Progress Note ---
<Winter Kim - Last Filed: 10/06/18 18:52> Date of Encounter: 10/06/18 Time of Encounter: 09:30 Assessment and Plan (1) Acute respiratory failure Current Visit: Yes Status: Resolved Presented to the ED complaining of shortness of breath at the outside facility had respiratory acidosis was subsequently intubated Extubated this morning, exacerbation likely secondary to CHF versus COPD exacerbation versus pneumonia -Continue Solu-Medrol 40 mg IV every 6 hours -Continue DuoNeb -On 2 L of nasal cannula Qualifiers: Respiratory failure complication: hypoxia and hypercapnia Qualified Code(s): J96.01 - Acute respiratory failure with hypoxia; J96.02 - Acute respiratory failure with hypercapnia (2) Pneumonia Current Visit: Yes Status: Acute Right lower lobe pneumonia per CT imaging Resented to the ED due to acute respiratory failure -Continue bronchodilators -blood cultures pending -MRSA nasal swab was positive but given no recent hospital admissions hold off vancomycin -Continue Zosyn Qualifiers: Pneumonia type: due to unspecified organism Laterality: right Lung location: lower lobe of lung Qualified Code(s): J18.1 - Lobar pneumonia, unspecified organism (3) Pulmonary embolism Current Visit: Yes Status: Chronic At presentation d-dimer was 13,590 Does have history of pulmonary embolism given history of factor V Leiden Had a CTA of the chest since admission does not show any pulmonary embolism -Continue heparin drip DVT prevention and given history of previous PE -Will need to transition to oral anticoagulation prior to discharge Qualifiers: Pulmonary embolism type: unspecified Chronicity: unspecified Acute cor pulmonale presence: without acute cor pulmonale Qualified Code(s): I26.99 - Other pulmonary embolism without acute cor pulmonale (4) Acute exacerbation of CHF (congestive heart failure) Current Visit: Yes Status: Acute Presented to the ED due to acute shortness of breath BMP admission was 388 No previous echo on file does have an echo at this admission optimal due to body habitus EF grossly normal at 50% with moderate concentric left ventricular hypertrophy Chest x-ray shows pulmonary edema -Continue 40 mg IV Lasix. -Continue monitoring intake and output Qualifiers: Heart failure type: unspecified Qualified Code(s): I50.9 - Heart failure, unspecified (5) Deep vein thrombosis of lower extremity Current Visit: No Status: Acute Right leg was bigger than left leg at admission Underwent Doppler and shows 3 areas of DVT Currently on heparin drip Qualifiers: Affected thrombotic vein of extremity: unspecified vein of extremity Chronicity: acute Laterality: bilateral Qualified Code(s): I82.403 - Acute embolism and thrombosis of unspecified deep veins of lower extremity, bilateral (6) COPD (chronic obstructive pulmonary disease) Current Visit: Yes Status: Acute Suspected history of COPD although not previously diagnosed Chest x-ray shows atelectasis Current every day smoker -Continue Solu-Medrol 40 mg IV every 6 hours -Continue scheduled DuoNeb Qualifiers: COPD type: unspecified COPD Qualified Code(s): J44.9 - Chronic obstructive pulmonary disease, unspecified (7) Diabetes mellitus Current Visit: Yes Status: Acute History of diabetes unknown if currently taking oral medication at home as he has been noncompliant Glucose on admission was noted to be in the 300s A1c at this admission is 7.8 -Continue Accu-Checks with low-dose sign scale -Added basal insulin -Continue to monitor glucose with ACHS Qualifiers: Diabetes mellitus type: type 2 Diabetes mellitus care home insulin use: without superintendent container terminal use Diabetes mellitus complication status: with unspecified complications Qualified Code(s): E11.8 - Type 2 diabetes mellitus with unspecified complications (8) Hypertension Current Visit: Yes Status: Acute History of hypertension unknown home antihypertensive medication -20 mg PRN every 6 hours labetalol ordered -10 mg PRN every 6 hours her hydralazine ordered Qualifiers: Hypertension type: essential hypertension Qualified Code(s): I10 - Essential (primary) hypertension (9) DVT prophylaxis Current Visit: Yes Status: Acute On heparin Subjective Interval history: Mr. Montejo was seen at bedside this morning. He was intubated but was alert and oriented to person place and time. He was later extubated has been comfortable and tolerating 2 liters nasal cannula saturating at 98%. No complaints this morning. Objective PUL Vital signs: Last Vital Signs Temp 98.1 F 10/06/18 11:00 Pulse 88 10/06/18 11:00 Resp 16 10/06/18 11:39 BP 157/80 10/06/18 11:00 Pulse Ox 97 10/06/18 11:39 General appearance: no acute distress, alert Eyes: nonicteric ENT: oropharynx moist Neck: supple Effort: normal Auscultation: bilateral: diminished breath sounds (Bilateral lower lobe) Cardiovascular: regular rate and rhythm Gastrointestinal: normoactive bowel sounds, soft, non-tender Extremities: edema (Trace nonpitting edema), other (Venous-stasis) normal mental status, pupils equal and round mood appropriate, affect normal Ventilator Settings Ventilator Settings: Ventilator Settings, Last 8 Hours Ventilator Tidal Volume 550 Setting Ventilator Tidal Volume 550 Setting Ventilator Tidal Volume 550 Setting Ventilator Tidal Volume 550 Setting Ventilator Tidal Volume 550 Setting Ventilator Respiratory Rate 16 Setting Ventilator Respiratory Rate 16 Setting Ventilator Respiratory Rate 16 Setting Ventilator Respiratory Rate 16 Setting Ventilator Respiratory Rate 16 Setting Actual Respiratory Rate 13 Actual Respiratory Rate 13 Actual Respiratory Rate 13 Actual Respiratory Rate 10 Actual Respiratory Rate 13 Actual Respiratory Rate 18 Actual Respiratory Rate 25 Actual Respiratory Rate 23 Actual Respiratory Rate 23 Positive End Expiratory 5 Pressure Positive End Expiratory 5 Pressure Positive End Expiratory 5 Pressure Positive End Expiratory 5 Pressure Positive End Expiratory 5 Pressure Positive End Expiratory 5 Pressure Positive End Expiratory 5 Pressure Positive End Expiratory 5 Pressure Positive End Expiratory 5 Pressure Positive End Expiratory 5 Pressure Peak Inspiratory Airway 11 Pressure Peak Inspiratory Airway 11 Pressure Peak Inspiratory Airway 11 Pressure Peak Inspiratory Airway 10 Pressure Peak Inspiratory Airway 11 Pressure Peak Inspiratory Airway 10 Pressure Peak Inspiratory Airway 7.9 Pressure Peak Inspiratory Airway 17 Pressure Peak Inspiratory Airway 13 Pressure Results - Laboratory Findings CBC and BMP: 10/06/18 02:31 10/06/18 02:31 ABG ABG pH 7.41 pH Units (7.32-7.45) 10/06/18 04:07 ABG pCO2 52 mmHg (35-45) H 10/06/18 04:07 ABG pO2 67 mmHg (85-104) L 10/06/18 04:07 ABG O2 Saturation 93 % (95-98) L 10/06/18 04:07 PT/INR, D-dimer PT 12.1 Seconds (9.4-12.1) 10/05/18 04:27 04199 ng/mLFEU (0-500) H 10/04/18 21:33 Abnormal lab findings: Abnormal lab results 0.5 K/mcL (0.6-4.6) L 10/06/18 02:31 60158 ng/mLFEU (0-500) H 10/04/18 21:33 Heparin Anti-Xa, Unfract 0.17 IU/mL (0.30-0.70) L 10/05/18 12:31 ABG pCO2 52 mmHg (35-45) H 10/06/18 04:07 ABG pO2 67 mmHg (85-104) L 10/06/18 04:07 ABG HCO3 33 mEq/L (21-27) H 10/06/18 04:07 ABG Total CO2 35 mEq/L (20-26) H 10/06/18 04:07 ABG O2 Saturation 93 % (95-98) L 10/06/18 04:07 ABG Base Excess 7 mEq/L (-2 to 3) H 10/06/18 04:07 Sodium 135 mEq/L (136-145) L 10/05/18 04:27 Chloride 97 mEq/L (98-107) L 10/06/18 02:31 Carbon Dioxide 31 mEq/L (23-29) H 10/06/18 02:31 BUN 28 mg/dL (6-20) H 10/06/18 02:31 35 (6-26) H 10/06/18 02:31 Glucose 291 mg/dL (70-105) H 10/06/18 02:31 POC Glucose 268 mg/dL (70-99) H 10/06/18 11:36 7.8 % (-5.6) H 10/04/18 21:33 Venous Ioniz Calcium 1.11 mmol/L (1.15-1.35) L 10/05/18 04:43 Phosphorus 2.4 mg/dL (2.7-4.5) L 10/05/18 04:27 0.06 ng/mL (< 0.04) H* 10/05/18 09:23 B-Natriuretic Peptide 388 pg/mL (Less than 100) H 10/04/18 21:33 0.41 ng/mL (0.00-0.15) H 10/05/18 09:23 Ur Specific [place] > 1.030 (1.010-1.025) H 10/04/18 21:35 100 mg/dL (Neg-Trace) H 10/04/18 21:35 >=1000 mg/dL (Normal) H 10/04/18 21:35 Trace (Negative) H 10/04/18 21:35 3-5 per hpf (0-3) H 10/04/18 21:35 5-15 per hpf (0-3) H 10/04/18 21:35 Ur Squamous Epith Cells Many per lpf (None-Few) H 10/04/18 21:35 Ur Culture Indicated? YES (NO) A 10/04/18 21:35 Positive (Negative) A 10/05/18 08:20 - Microbiology Findings Microbiology Findings: Microbiology, Last 48 Hours 10/04/18 21:35 Urine Culture - Preliminary Urine,Clean Catch Culture is incubating. 10/04/18 21:35 Legionella Antigen - Final Urine,[place] Streptococcus pneumoniae Antigen (M - Final 10/04/18 21:33 Blood Culture - Preliminary Peripheral Venipuncture Culture is incubating and being continuously monitored for growth. Final report to follow. 10/04/18 21:33 Blood Culture - Preliminary Peripheral Venipuncture Culture is incubating and being continuously monitored for growth. Final report to follow. - Clinical Findings Intake & Output: Intake & Output 10/05/18 10/06/18 10/06/18 23:59 07:59 15:59 Intake Total 691.1 / 2339.8 854.1 / 854.1 Output Total 2725 / 6105 1175 / 3575 2400 / 3575 Balance -2033.9 / -3765.2 -320.9 / -2720.9 -2400 / -2720.9 Weight 170.6 kg Consult Discharge Plan - Plan Referrals: Mindy Santos, [employer] [Primary Care Provider] - <Laura Khanna S - Last Filed: 10/06/18 20:17> Date of Encounter: 10/06/18 Objective PUL Vital signs: Last Vital Signs Temp 98.1 F 10/06/18 16:00 Pulse 89 10/06/18 18:00 Resp 12 10/06/18 18:00 BP 150/75 10/06/18 18:00 Pulse Ox 98 10/06/18 18:00 Results - Laboratory Findings CBC and BMP: 10/06/18 02:31 10/06/18 02:31 ABG ABG pH 7.41 pH Units (7.32-7.45) 10/06/18 04:07 ABG pCO2 52 mmHg (35-45) H 10/06/18 04:07 ABG pO2 67 mmHg (85-104) L 10/06/18 04:07 ABG O2 Saturation 93 % (95-98) L 10/06/18 04:07 PT/INR, D-dimer PT 12.1 Seconds (9.4-12.1) 10/05/18 04:27 59203 ng/mLFEU (0-500) H 10/04/18 21:33 Abnormal lab findings: Abnormal lab results 0.5 K/mcL (0.6-4.6) L 10/06/18 02:31 80017 ng/mLFEU (0-500) H 10/04/18 21:33 Heparin Anti-Xa, Unfract 0.17 IU/mL (0.30-0.70) L 10/05/18 12:31 ABG pCO2 52 mmHg (35-45) H 10/06/18 04:07 ABG pO2 67 mmHg (85-104) L 10/06/18 04:07 ABG HCO3 33 mEq/L (21-27) H 10/06/18 04:07 ABG Total CO2 35 mEq/L (20-26) H 10/06/18 04:07 ABG O2 Saturation 93 % (95-98) L 10/06/18 04:07 ABG Base Excess 7 mEq/L (-2 to 3) H 10/06/18 04:07 Sodium 135 mEq/L (136-145) L 10/05/18 04:27 Chloride 97 mEq/L (98-107) L 10/06/18 02:31 Carbon Dioxide 31 mEq/L (23-29) H 10/06/18 02:31 BUN 28 mg/dL (6-20) H 10/06/18 02:31 35 (6-26) H 10/06/18 02:31 Glucose 291 mg/dL (70-105) H 10/06/18 02:31 POC Glucose 227 mg/dL (70-99) H 10/06/18 16:32 7.8 % (-5.6) H 10/04/18 21:33 Venous Ioniz Calcium 1.11 mmol/L (1.15-1.35) L 10/05/18 04:43 Phosphorus 2.4 mg/dL (2.7-4.5) L 10/05/18 04:27 0.06 ng/mL (< 0.04) H* 10/05/18 09:23 B-Natriuretic Peptide 388 pg/mL (Less than 100) H 10/04/18 21:33 0.41 ng/mL (0.00-0.15) H 10/05/18 09:23 Ur Specific [place] > 1.030 (1.010-1.025) H 10/04/18 21:35 100 mg/dL (Neg-Trace) H 10/04/18 21:35 >=1000 mg/dL (Normal) H 10/04/18 21:35 Trace (Negative) H 10/04/18 21:35 3-5 per hpf (0-3) H 10/04/18 21:35 5-15 per hpf (0-3) H 10/04/18 21:35 Ur Squamous Epith Cells Many per lpf (None-Few) H 10/04/18 21:35 Ur Culture Indicated? YES (NO) A 10/04/18 21:35 Positive (Negative) A 10/05/18 08:20 - Microbiology Findings Microbiology Findings: Microbiology, Last 48 Hours 10/04/18 21:35 Urine Culture - Preliminary Urine,Clean Catch Culture is incubating. 10/04/18 21:35 Legionella Antigen - Final Urine,[place] Streptococcus pneumoniae Antigen (M - Final 10/04/18 21:33 Blood Culture - Preliminary Peripheral Venipuncture Culture is incubating and being continuously monitored for growth. Final report to follow. 10/04/18 21:33 Blood Culture - Preliminary Peripheral Venipuncture Culture is incubating and being continuously monitored for growth. Final report to follow. - Clinical Findings Intake & Output: Intake & Output 10/06/18 10/06/18 10/06/18 07:59 15:59 23:59 Intake Total 854.1 / 1293.0 438.9 / 1293.0 Output Total 1175 / 6725 2750 / 6725 2800 / 6725 Balance -320.9 / -5432.0 -2311.1 / -5432.0 -2800 / -5432.0 Weight 170.6 kg - Attending Attestation I saw and evaluated this patient and my medical decision-making was reviewed with the Resident Physician. I agree with the documented findings, disposition and treatment plan as described except to the extent set forth below. We independently had [id number] contact with the patient I spent 33 minutes of Critical Care time with this patient. It involved decision making of high complexity to assess, manipulate, and support vital organ system failure and/or to prevent further life threatening deterioration of the patient's condition. The time involved in the performance of separately reportable procedures was not counted toward critical care time. Patient seen and examined at bedside Labs, radiology, chart personally reviewed. Management was reviewed during multidisciplinary critical care rounds. CASHIER CHECKER: Patient is conscious following commands intubated and mechanically ventilated most likely he will past spontaneous breathing trial will liberate from mechanical ventilation. Pulm: Patient has acceptable oxygenation and ventilation will liberate to nasal cannula will need BiPAP therapy at night. V/Q mismatch complicated by a hydrostatic pulmonary edema and right lower lobe pneumonia. Cards: Patient has diastolic heart failure due to hydrostatic pulmonary edema patient responding well to diuresis to maintain sinus rhythm to control preload with diuresis to control afterload vasodilators with hydralazine and when necessary and labetalol scheduled. FEN-GI: Advance diet as tolerated to full liquid diet Renal: Labs and output reviewed ID: right lower lobe pneumonia can de-escalate antibiotics according to clinical response Heme/Onc: Labs reviewed Endo: Glucose Monitored Integ/MSK: Skin Care per routine ICU Nursing Protocol to prevent ulcers. Lines: All lines examined without evidence of infection : Dispo: To remain in ICU high risk for reintubation CODE: Full Code
[2018-10-06] MEDS ORDERED: Insulin LISPRO 300 UNITS/3 ML VIAL SQ SCH ×3 (12:00→21:00)
[2018-10-06] MEDS ORDERED: *HR* Dextrose 50 % in Water (Syg) 50 ML SYRINGE IVP PRN (12:02)
[2018-10-06] MEDS ORDERED: Dextrose Gel 15 GM/37.5 ML TUBE PO PRN ×2 (12:02)
[2018-10-06] MEDS ORDERED: D5% in Water 1,000 ML IVC PRN (12:02)
[2018-10-06] MEDS: Gabapentin 400 MG CAPSULE PO SCH ×2 (12:40→20:04)
[2018-10-06] MEDS: Insulin DETEMIR 100 UNIT/ML X5UNITS SQ SCH ×2 (12:41→20:13)
[2018-10-06] MEDS ORDERED: *HR* Labetalol 20 MG/4 ML SYRINGE IVP ONE (14:08)
[2018-10-06] MEDS ORDERED: *HR* Labetalol 20 MG/4 ML SYRINGE IVP SCH (20:00)
[2018-10-06] MEDS: *HR* Labetalol 20 MG/4 ML SYRINGE IVP SCH (20:13)
[2018-10-07] MEDS: Ipratropium/Albuterol Neb 3 ML IH SCH ×6 (00:08→19:50)
[2018-10-07] MEDS: Piperacillin/Tazobactam 3.375 GM in 0.9 % Sodium Chloride Mini Bag 100 ML IVPB SCH ×3 (00:44→16:20)
[2018-10-07] MEDS: MethylPREDNISolone 40 MG/ML VIAL IVP SCH ×2 (00:45→04:59)
[2018-10-07] MEDS: *HR* Labetalol 20 MG/4 ML SYRINGE IVP SCH (01:04)
[2018-10-07 04:19] LABS: Hematocrit 43.5 % (37.5-50.1); Hemoglobin 14.5 g/dL (12.9-16.9); Immature Granulocytes % 0.7 % (0-4); Lymphocytes # 0.7 K/mcL (0.6-4.6); Mean Corpuscular HGB Conc 33.3 g/dL (31.6-35.5); Mean Corpuscular Hemoglobin 29.7 pg (28.0-33.3); Mean Corpuscular Volume 89.1 fL (83.0-100.0); Mean Platelet Volume 10.2 fL (9.4-12.4); Monocytes # 0.4 K/mcL (0.0-1.3); Monocytes % 4.4 %; Neutrophils # 8.9 K/mcL (1.6-8.9); Platelet Count 185 K/mcL (140-400); Red Blood Count 4.88 M/mcL (4.19-5.50); Segmented Neutrophils % 87.9 %
[2018-10-07 04:38] LABS: BUN/Creatinine Ratio 35 (6-26); Blood Urea Nitrogen 28 mg/dL (6-20); Calcium 9.5 mg/dL (8.6-10.3); Carbon Dioxide 33 mEq/L (23-29); Chloride 95 mEq/L (98-107); Glucose 246 mg/dL (70-105); Osmolality,Calculated 298 (280-300); Potassium 3.8 mEq/L (3.5-5.1); Sodium 137 mEq/L (136-145); eGFR For Non-African Americans > 60 (> 60)
[2018-10-07] MEDS ORDERED: OXYCODONE Oral CONC 10 MG/0.5 ML ORAL.SYG SL ONE (04:48)
[2018-10-07] MEDS: Pantoprazole 40 MG VIAL IVP SCH (04:59)
[2018-10-07] MEDS ORDERED: *HR* Labetalol 20 MG/4 ML SYRINGE IVP PRN ×2 (08:41→13:12)
[2018-10-07] MEDS ORDERED: amLODIPine 5 MG TABLET PO SCH (09:00)
[2018-10-07] MEDS: Insulin LISPRO 300 UNITS/3 ML VIAL SQ SCH ×4 (09:19→20:51)
[2018-10-07] MEDS: Furosemide 40 MG/4 ML VIAL IVP SCH ×2 (09:19→16:20)
[2018-10-07] MEDS: Gabapentin 400 MG CAPSULE PO SCH ×2 (09:21→20:49)
[2018-10-07] MEDS: Heparin 25,000 UNIT/250 ML D5W 25,000 UNIT/250 ML IV.SOLN IVC SCH ×2 (09:21→16:21)
[2018-10-07] MEDS: Insulin DETEMIR 100 UNIT/ML X5UNITS SQ SCH ×2 (09:23→20:50)
[2018-10-07] MEDS ORDERED: Piperacillin/Tazobactam 3.375 GM in 0.9 % Sodium Chloride Mini Bag 100 ML IVPB SCH (11:51)
--- NOTE | 2018-10-07 12:01 | Pulmonology Progress Note ---
<Winter Kim - Last Filed: 10/07/18 15:33> Date of Encounter: 10/07/18 Time of Encounter: 15:35 Assessment and Plan (1) Acute exacerbation of CHF (congestive heart failure) Current Visit: Yes Status: Acute Presented to the ED due to acute shortness of breath BMP admission was 388 No previous echo on file does have an echo at this admission optimal due to body habitus EF grossly normal at 50% with moderate concentric left ventricular hypertrophy Chest x-ray shows pulmonary edema -Continue 40 mg IV Lasix BID -Continue monitoring intake and output -Fluid restriction of 2 liters -In addition to oral Lasix once respiratory status improved Qualifiers: Heart failure type: unspecified Qualified Code(s): I50.9 - Heart failure, unspecified (2) Acute respiratory failure Current Visit: Yes Status: Resolved Presented to the ED complaining of shortness of breath at the outside facility had respiratory acidosis was subsequently intubated Extubated this morning, exacerbation likely secondary to CHF versus COPD exa cerbation versus pneumonia -Stopped Solu-Medrol will transition to oral prednisone for 3 days -Continue DuoNeb -Currently oxygenating well on room air Qualifiers: Respiratory failure complication: hypoxia and hypercapnia Qualified Code(s): J96.01 - Acute respiratory failure with hypoxia; J96.02 - Acute respiratory failure with hypercapnia (3) Pneumonia Current Visit: Yes Status: Acute Right lower lobe pneumonia per CT imaging Presented to the ED due to acute respiratory failure -Continue bronchodilators -blood cultures pending -MRSA nasal swab was positive but given no recent hospital admissions hold off vancomycin -Improved respiratory effort -Continue Zosyn for 2 additional days, total of 5 days therapy Qualifiers: Pneumonia type: due to unspecified organism Laterality: right Lung locati on: lower lobe of lung Qualified Code(s): J18.1 - Lobar pneumonia, unspecified organism (4) Pulmonary embolism Current Visit: Yes Status: Chronic At presentation d-dimer was 13,590 Does have history of pulmonary embolism given history of factor V Leiden Had a CTA of the chest since admission does not show any pulmonary embolism -Continue heparin drip for prevention and given history of previous PE -Will need to transition to oral anticoagulation prior to discharge Qualifiers: Pulmonary embolism type: unspecified Chronicity: unspecified Acute cor pulmonale presence: without acute cor pulmonale Qualified Code(s): I26.99 - Other pulmonary embolism without acute cor pulmonale (5) Deep vein thrombosis of lower extremity Current Visit: No Status: Acute Right leg was bigger than left leg at admission Underwent Doppler and showed 3 areas of DVT Currently on heparin drip Qualifiers: Affected thrombotic vein of extremity: unspecified vein of extremity Chronicity: acute Laterality: bilateral Qualified Code(s): I82.403 - Acute embolism and thrombosis of unspecified deep veins of lower extremity, bilateral (6) COPD (chronic obstructive pulmonary disease) Current Visit: Yes Status: Acute Suspected history of COPD although not previously diagnosed Chest x-ray shows atelectasis Current every day smoker -Switched to oral prednisone, will need 3 days of therapy -Continue scheduled DuoNeb Qualifiers: COPD type: unspecified COPD Qualified Code(s): J44.9 - Chronic obstructive pulmonary disease, unspecified (7) Diabetes mellitus Current Visit: Yes Status: Acute History of diabetes unknown if currently taking oral medication at home as he has been noncompliant Glucose on admission was noted to be in the 300s A1c at this admission is 7.8 -Continue Accu-Checks with low-dose sliding scale -Increased long-acting insulin to 15 units twice a day -Continue to monitor glucose with ACHS Qualifiers: Diabetes mellitus type: type 2 Diabetes mellitus snf insulin use: without snf use Diabetes mellitus complication status: with unspecified complications Qualified Code(s): E11.8 - Type 2 diabetes mellitus with unspecified complications (8) Hypertension Current Visit: Yes Status: Acute History of hypertension unknown home antihypertensive medication - started 5 mg amlodipine daily with 12.5 mg metoprolol twice a day -When necessary labetalol ordered -If blood pressure continues to remain high can increase amlodipine to 10 mg daily Qualifiers: Hypertension type: essential hypertension Qualified Code(s): I10 - Essential (primary) hypertension (9) DVT prophylaxis Current Visit: Yes Status: Acute On heparin drip for DVT Subjective Interval history: Mr. Montejo was seen at bedside this morning. His vitals are reviewed and noted to have ongoing hypertension. He was extubated yesterday and tolerating 2 liters of nasal cannula, saturating at 98%. Complaining of ongoing lower extremity pain bilaterally reports a similar to his previous nerve pain. He also reports that he has been taking gabapentin 4 times a day and believes not taking his home regimen is causing worsening of his pain. Denies chest pain, fever, chills, abdominal pain or bowel changes. Objective PUL Vital signs: Last Vital Signs Temp 98.3 F 10/07/18 08:35 Pulse 76 10/07/18 10:00 Resp 18 10/07/18 10:00 BP 154/79 10/07/18 10:00 Pulse Ox 98 10/07/18 10:00 General appearance: no acute distress, alert Eyes: nonicteric ENT: oropharynx moist Neck: supple Effort: normal Auscultation: bilateral: diminished breath sounds (Diminished lower lung lobes) Gastrointestinal: hypoactive bowel sounds, soft, non-tender, non-distended Extremities: edema (Non pitting bilateral lower extremity edema), other (Vascular changes bilateral lower extremities) Musculoskeletal: no deformities normal mental status, pupils equal and round mood appropriate, affect normal Results - Laboratory Findings CBC and BMP: 10/07/18 04:06 10/07/18 04:06 ABG ABG pH 7.41 pH Units (7.32-7.45) 10/06/18 04:07 ABG pCO2 52 mmHg (35-45) H 10/06/18 04:07 ABG pO2 67 mmHg (85-104) L 10/06/18 04:07 ABG O2 Saturation 93 % (95-98) L 10/06/18 04:07 PT/INR, D-dimer PT 12.1 Seconds (9.4-12.1) 10/05/18 04:27 61777 ng/mLFEU (0-500) H 10/04/18 21:33 Abnormal lab findings: Abnormal lab results 0.5 K/mcL (0.6-4.6) L 10/06/18 02:31 21907 ng/mLFEU (0-500) H 10/04/18 21:33 Heparin Anti-Xa, Unfract 0.17 IU/mL (0.30-0.70) L 10/05/18 12:31 ABG pCO2 52 mmHg (35-45) H 10/06/18 04:07 ABG pO2 67 mmHg (85-104) L 10/06/18 04:07 ABG HCO3 33 mEq/L (21-27) H 10/06/18 04:07 ABG Total CO2 35 mEq/L (20-26) H 10/06/18 04:07 ABG O2 Saturation 93 % (95-98) L 10/06/18 04:07 ABG Base Excess 7 mEq/L (-2 to 3) H 10/06/18 04:07 Sodium 135 mEq/L (136-145) L 10/05/18 04:27 Chloride 95 mEq/L (98-107) L 10/07/18 04:06 Carbon Dioxide 33 mEq/L (23-29) H 10/07/18 04:06 BUN 28 mg/dL (6-20) H 10/07/18 04:06 35 (6-26) H 10/07/18 04:06 Glucose 246 mg/dL (70-105) H 10/07/18 04:06 POC Glucose 235 mg/dL (70-99) H 10/07/18 08:11 7.8 % (-5.6) H 10/04/18 21:33 Venous Ioniz Calcium 1.11 mmol/L (1.15-1.35) L 10/05/18 04:43 Phosphorus 2.4 mg/dL (2.7-4.5) L 10/05/18 04:27 0.06 ng/mL (< 0.04) H* 10/05/18 09:23 B-Natriuretic Peptide 388 pg/mL (Less than 100) H 10/04/18 21:33 0.41 ng/mL (0.00-0.15) H 10/05/18 09:23 Ur Specific Mcandrews > 1.030 (1.010-1.025) H 10/04/18 21:35 100 mg/dL (Neg-Trace) H 10/04/18 21:35 >=1000 mg/dL (Normal) H 10/04/18 21:35 Trace (Negative) H 10/04/18 21:35 3-5 per hpf (0-3) H 10/04/18 21:35 5-15 per hpf (0-3) H 10/04/18 21:35 Ur Squamous Epith Cells Many per lpf (None-Few) H 10/04/18 21:35 Ur Culture Indicated? YES (NO) A 10/04/18 21:35 Positive (Negative) A 10/05/18 08:20 - Microbiology Findings Microbiology Findings: Microbiology, Last 48 Hours 05/20/19 21:35 Urine Culture - Final Urine,Clean Catch No significant growth. - Clinical Findings Intake & Output: Intake & Output 10/06/18 10/07/18 10/07/18 23:59 07:59 15:59 Intake Total 350 / 1643.0 350 / 350 Output Total 3500 / 7425 200 / 1250 1050 / 1250 Balance -3150 / -5782.0 150 / -900 -1050 / -900 Weight 157.9 kg Consult Discharge Plan - Plan Referrals: Mindy Santos, HEMMING AND TACKING MACHINE OPERATOR [Primary Care Provider] - <Laura Khanna - Last Filed: 10/07/18 21:24> Date of Encounter: 10/07/18 Objective PUL Vital signs: Last Vital Signs Temp 98.9 F 10/07/18 19:28 Pulse 82 10/07/18 19:28 Resp 19 10/07/18 19:51 BP 150/69 10/07/18 19:28 Pulse Ox 96 10/07/18 19:51 Results - Laboratory Findings CBC and BMP: 10/07/18 04:06 10/07/18 04:06 ABG ABG pH 7.41 pH Units (7.32-7.45) 10/06/18 04:07 ABG pCO2 52 mmHg (35-45) H 10/06/18 04:07 ABG pO2 67 mmHg (85-104) L 10/06/18 04:07 ABG O2 Saturation 93 % (95-98) L 10/06/18 04:07 PT/INR, D-dimer PT 12.1 Seconds (9.4-12.1) 10/05/18 04:27 52990 ng/mLFEU (0-500) H 10/04/18 21:33 Abnormal lab findings: Abnormal lab results 0.5 K/mcL (0.6-4.6) L 10/06/18 02:31 16386 ng/mLFEU (0-500) H 10/04/18 21:33 Heparin Anti-Xa, Unfract 0.17 IU/mL (0.30-0.70) L 10/05/18 12:31 ABG pCO2 52 mmHg (35-45) H 10/06/18 04:07 ABG pO2 67 mmHg (85-104) L 10/06/18 04:07 ABG HCO3 33 mEq/L (21-27) H 10/06/18 04:07 ABG Total CO2 35 mEq/L (20-26) H 10/06/18 04:07 ABG O2 Saturation 93 % (95-98) L 10/06/18 04:07 ABG Base Excess 7 mEq/L (-2 to 3) H 10/06/18 04:07 Sodium 135 mEq/L (136-145) L 10/05/18 04:27 Chloride 95 mEq/L (98-107) L 10/07/18 04:06 Carbon Dioxide 33 mEq/L (23-29) H 10/07/18 04:06 BUN 28 mg/dL (6-20) H 10/07/18 04:06 35 (6-26) H 10/07/18 04:06 Glucose 246 mg/dL (70-105) H 10/07/18 04:06 POC Glucose 271 mg/dL (70-99) H 10/07/18 16:48 7.8 % (-5.6) H 10/04/18 21:33 Venous Ioniz Calcium 1.11 mmol/L (1.15-1.35) L 10/05/18 04:43 Phosphorus 2.4 mg/dL (2.7-4.5) L 10/05/18 04:27 0.06 ng/mL (< 0.04) H* 10/05/18 09:23 B-Natriuretic Peptide 388 pg/mL (Less than 100) H 10/04/18 21:33 0.41 ng/mL (0.00-0.15) H 10/05/18 09:23 Ur Specific Mcandrews > 1.030 (1.010-1.025) H 10/04/18 21:35 100 mg/dL (Neg-Trace) H 10/04/18 21:35 >=1000 mg/dL (Normal) H 10/04/18 21:35 Trace (Negative) H 10/04/18 21:35 3-5 per hpf (0-3) H 10/04/18 21:35 5-15 per hpf (0-3) H 10/04/18 21:35 Ur Squamous Epith Cells Many per lpf (None-Few) H 10/04/18 21:35 Ur Culture Indicated? YES (NO) A 10/04/18 21:35 Positive (Negative) A 10/05/18 08:20 - Microbiology Findings Microbiology Findings: Microbiology, Last 48 Hours 10/04/18 21:35 Urine Culture - Final Urine,Clean Catch No significant growth. - Clinical Findings Intake & Output: Intake & Output 10/07/18 10/07/18 10/07/18 07:59 15:59 23:59 Intake Total 350 / 810 100 / 810 360 / 810 Output Total 200 / 2225 1600 / 2225 425 / 2225 Balance 150 / -1415 -1500 / -1415 -65 / -1415 Weight 157.9 kg - Attending Attestation - Attending Attestation I saw and evaluated this patient and my medical decision-making was reviewed with the Resident Physician. I agree with the documented findings, disposition and treatment plan as described except to the extent set forth below. We independently had [id number] contact with the patient Patient seen and examined at bedside Labs, radiology, chart personally reviewed. Management was reviewed during multidisciplinary critical care rounds. FOXPRO DEVELOPER: Patient is conscious following commands back to his baseline Pulm: Patient has acceptable oxygenation and ventilation will liberate to nasal cannula will need BiPAP therapy at night. V/Q mismatch complicated by a hydrostatic pulmonary edema and right lower lobe pneumonia. 10/07 patient acceptable oxygenation and ventilation de-escalate the steroids and antibiotics for right lower lobe pneumonia Cards: Patient has diastolic heart failure due to hydrostatic pulmonary edema patient responding well to diuresis to maintain sinus rhythm to control preload with diuresis to control afterload vasodilators with hydralazine and when necessary and labetalol scheduled. 10/07 will need to adequate preload and afterload management maintaining sinus rhythm. FEN-GI: Advance diet as tolerated Renal: Labs and output reviewed ID: right lower lobe pneumonia can de-escalate antibiotics according to clinical response Heme/Onc: Labs reviewed Endo: Glucose Monitored Integ/MSK: Skin Care per routine ICU Nursing Protocol to prevent ulcers. Lines: All lines examined without evidence of infection : Dispo: Transferred to second floor telemetry. CODE: Full Code
[2018-10-07] MEDS ORDERED: *HR* Heparin 5,000 UNIT/ML VIAL IVP PRN ×2 (13:12)
[2018-10-07] MEDS ORDERED: *HR* Dextrose 50 % in Water (Syg) 50 ML SYRINGE IVP PRN (13:12)
[2018-10-07] MEDS ORDERED: Naloxone 0.4 MG/ML INJ IVP PRN (13:12)
[2018-10-07] MEDS ORDERED: D5% in Water 1,000 ML IVC PRN (13:12)
[2018-10-07] MEDS ORDERED: Dextrose Gel 15 GM/37.5 ML TUBE PO PRN ×2 (13:12)
[2018-10-07] MEDS ORDERED: OXYCODONE Oral CONC 10 MG/0.5 ML ORAL.SYG SL PRN (14:37)
[2018-10-07] MEDS ORDERED: Gabapentin 400 MG CAPSULE PO SCH (15:00)
[2018-10-07] MEDS ORDERED: Insulin DETEMIR 100 UNIT/ML X5UNITS SQ SCH (21:00)
[2018-10-07] MEDS: Artificial Tears SOLN 15 ML BOTTLE BOTH EYES SCH (21:32)
[2018-10-08] MEDS: Ipratropium/Albuterol Neb 3 ML IH SCH ×6 (00:02→20:16)
[2018-10-08] MEDS: Piperacillin/Tazobactam 3.375 GM in 0.9 % Sodium Chloride Mini Bag 100 ML IVPB SCH ×3 (00:25→16:23)
[2018-10-08] MEDS: Heparin 25,000 UNIT/250 ML D5W 25,000 UNIT/250 ML IV.SOLN IVC SCH ×3 (00:29→20:55)
[2018-10-08] MEDS ORDERED: Melatonin 3 MG TABLET PO PRN (04:46)
[2018-10-08] MEDS: Acetaminophen 325 MG TABLET PO PRN (05:30)
[2018-10-08] MEDS: Gabapentin 400 MG CAPSULE PO SCH ×4 (07:59→20:51)
[2018-10-08] MEDS: Furosemide 40 MG/4 ML VIAL IVP SCH ×2 (08:01→16:27)
[2018-10-08] MEDS: Insulin DETEMIR 100 UNIT/ML X5UNITS SQ SCH ×2 (08:01→20:55)
[2018-10-08] MEDS: predniSONE 20 MG TABLET PO SCH (08:02)
[2018-10-08] MEDS: Artificial Tears SOLN 15 ML BOTTLE BOTH EYES SCH ×4 (08:02→20:55)
[2018-10-08] MEDS: Insulin LISPRO 300 UNITS/3 ML VIAL SQ SCH ×4 (08:03→20:54)
[2018-10-08] MEDS ORDERED: predniSONE 20 MG TABLET PO SCH (09:00)
[2018-10-08] MEDS ORDERED: amLODIPine 5 MG TABLET PO SCH (09:00)
[2018-10-08 09:26] LABS: BUN/Creatinine Ratio 35 (6-26); Blood Urea Nitrogen 31 mg/dL (6-20); Calcium 9.1 mg/dL (8.6-10.3); Carbon Dioxide 33 mEq/L (23-29); Chloride 95 mEq/L (98-107); Glucose 224 mg/dL (70-105); Osmolality,Calculated 298 (280-300); Phosphorous 3.3 mg/dL (2.7-4.5); Potassium 3.1 mEq/L (3.5-5.1); Sodium 137 mEq/L (136-145); eGFR For Non-African Americans > 60 (> 60)
[2018-10-08] MEDS: OXYCODONE Oral CONC 10 MG/0.5 ML ORAL.SYG SL PRN ×2 (12:00→18:12)
[2018-10-08 12:52] LABS: Heparin anti-factor XA UFH 0.28 IU/mL (0.30-0.70)
[2018-10-08 13:19] LABS: INR 1.1; Prothrombin Time 12.8 Seconds (9.4-12.1)
--- NOTE | 2018-10-08 14:47 | Internal Med Progress Note ---
Hospitalist Progress Note - Encounter Date of Encounter: 10/08/18 Time of Encounter: 14:45 - Subjective Interval History: Brief hospital course: Patient is a 53y/o male who was admitted to the ICU for acute respiratory failure requiring intubation secondary to CHF exacerbation and pneumonia. Patient was started on IV abx and IV diuresis. Pt was also found to have right LE DVT for which he was started on heparin drip. Pt was successfully extubated on 10/07/18 and transferred to on 10/07/18. 10/08/18 Patient seen and examined earlier today. He is resting in recliner and reports of feeling significantly better compared to previous day. He states he is breathing comfortably without any distress however reports of restlessness and has been unable to sleep. He feels tired. Denies any chest pain, abd pain, n/v, fever, or chills. Ten point ROS is negative except as listed above Pt is reported of not having any prescription insurance due to which he is being started on coumadin, will start bridging with lovenox in am. dining services director are on board and pt can be discharge once INR is within therapeutic range. - Exam Vitals: Temp Pulse Resp BP Pulse Ox 97.8 F 67 16 135/73 95 10/08/18 11:12 10/08/18 11:12 10/08/18 11:30 10/08/18 11:12 10/08/18 11:30 Exam: General: No acute distress, AAO x 3, morbidly obese HEENT: EOMI, PERRLA, NC/AT, no scleral icterus Respiratory: Clear to auscultate bilaterally, no wheezing, no rales Cardiovascular: Regular, Rate, Rhythm, No murmurs GI: Soft, Non tender, non distended, normal bowel sounds Ext: chronic venous stasis in bilateral LE, no tenderness, positive pulses Neuro: AAO x 3, no focal deficits, CN II-XII grossly intact Rest of the clinical exam is noncontributory - Assessment and Plan (1) Acute respiratory failure Current Visit: Yes Status: Resolved Assessment and Plan: Likely secondary to CHF exacerbation and PNA currently saturating well on room air will complete abx therapy for five days (Zosyn -day 08/20) will d/c IV lasix after evening's dose and start Lasix 40mg PO BID in am continue fluid restriction diet monitor daily weights and strict I/Os. will closely monitor respiratory status (2) Acute exacerbation of CHF (congestive heart failure) Current Visit: Yes Status: Acute Assessment and Plan: as listed above (3) Deep vein thrombosis of lower extremity Current Visit: No Status: Acute Assessment and Plan: Will initiate coumadin therapy, bridging with heparin drip right now switch to therapeutic dose of lovenox in am Discharge pending therapeutic INR pharmacist to dose coumadin will closely monitor INR (4) Diabetes mellitus Current Visit: Yes Status: Chronic Assessment and Plan: continue basal and sliding scale insulin coverage monitor fingerstick and blood glucose ADA diet (5) Hypertension Current Visit: Yes Status: Chronic Assessment and Plan: BP within acceptable range continue current management (6) Pneumonia Current Visit: Yes Status: Acute Assessment and Plan: continue IV zosyn (day /) (7) Pulmonary embolism Current Visit: Yes Status: Chronic Assessment and Plan: CTA chest negative for PE reported hx of chronic PE currently on anticoagulation for DVT (8) DVT prophylaxis Current Visit: Yes Status: Acute Assessment and Plan: on heparin drip (9) COPD (chronic obstructive pulmonary disease) Current Visit: Yes Status: Chronic Assessment and Plan: not in acute exacerbation continue bronchodilator support as needed (10) Hypokalemia Current Visit: Yes Status: Acute Assessment and Plan: K supplemented continue to monitor electrolytes and replace as needed (11) Insomnia Current Visit: Yes Status: Acute Assessment and Plan: will start Melatonin at bedtime - Time Spent with Patient Total time spent is greater than 50% in coordination of care (as documented) at patient's floor/unit and/or counseling patient: 25 - 35 minutes Plan of Care Discussed with: patient (patient/RN/case management/pharmacist) Internal Medicine: Result - Labs CBC & Chem 7: 10/07/18 04:06 10/08/18 08:35 Labs: BMP 10/08/18 08:35 Sodium 137 Potassium 3.1 L Chloride 95 L Carbon Dioxide 33 H BUN 31 H Creatinine 0.89 Glucose 224 H Calcium 9.1 - ABG Interpretation ABG results: ABG ABG pH 7.41 pH Units (7.32-7.45) 10/06/18 04:07 ABG pCO2 52 mmHg (35-45) H 10/06/18 04:07 ABG pO2 67 mmHg (85-104) L 10/06/18 04:07 ABG O2 Saturation 93 % (95-98) L 10/06/18 04:07 PT/INR, D-dimer PT 12.8 Seconds (9.4-12.1) H 10/08/18 12:01 92821 ng/mLFEU (0-500) H 10/04/18 21:33 Consult Discharge Plan - Plan Referrals: Mindy Santos, VIRTUAL CUSTOMER ASSISTANT [Primary Care Provider] - (1) Acute respiratory failure Qualifiers: Respiratory failure complication: hypercapnia Qualified Code(s): J96.02 - Acute respiratory failure with hypercapnia (2) Acute exacerbation of CHF (congestive heart failure) Qualifiers: Heart failure type: unspecified Qualified Code(s): I50.9 - Heart failure, unspecified (3) Deep vein thrombosis of lower extremity Qualifiers: Affected thrombotic vein of extremity: unspecified vein of extremity Chronicity: acute Laterality: right Qualified Code(s): I82.401 - Acute embolism and thrombosis of unspecified deep veins of right lower extremity (4) Diabetes mellitus Qualifiers: Diabetes mellitus type: type 2 Diabetes mellitus mcc insulin use: without ferry terminal supervisor use Diabetes mellitus complication status: with unspecified complications Qualified Code(s): E11.8 - Type 2 diabetes mellitus with unspecified complications (5) Hypertension Qualifiers: Hypertension type: essential hypertension Qualified Code(s): I10 - Essential (primary) hypertension (6) Pneumonia Qualifiers: Pneumonia type: due to unspecified organism Laterality: right Lung location: lower lobe of lung Qualified Code(s): J18.1 - Lobar pneumonia, unspecified organism (7) Pulmonary embolism Qualifiers: Pulmonary embolism type: unspecified Chronicity: unspecified Acute cor pulmonale presence: without acute cor pulmonale Qualified Code(s): I26.99 - Other pulmonary embolism without acute cor pulmonale (9) COPD (chronic obstructive pulmonary disease) Qualifiers: COPD type: unspecified COPD Qualified Code(s): J44.9 - Chronic obstructive pulmonary disease, unspecified (11) Insomnia Qualifiers: Insomnia type: unspecified Qualified Code(s): G47.00 - Insomnia, unspecified
[2018-10-08] MEDS ORDERED: *HR* Warfarin 5 MG TABLET PO ONE (18:00)
[2018-10-08] MEDS ORDERED: Warfarin perPT PO PRN (18:00)
[2018-10-08] MEDS ORDERED: Melatonin 3 MG TABLET PO SCH (21:00)
[2018-10-09] MEDS: Piperacillin/Tazobactam 3.375 GM in 0.9 % Sodium Chloride Mini Bag 100 ML IVPB SCH ×3 (00:09→17:48)
[2018-10-09] MEDS: OXYCODONE Oral CONC 10 MG/0.5 ML ORAL.SYG SL PRN ×3 (00:10→16:12)
[2018-10-09] MEDS: Ipratropium/Albuterol Neb 3 ML IH SCH ×7 (01:05→23:13)
[2018-10-09 02:38] LABS: Eosinophils % 0.5 %; Hematocrit 41.6 % (37.5-50.1); Hemoglobin 14.2 g/dL (12.9-16.9); Immature Granulocytes % 0.7 % (0-4); Lymphocytes # 1.5 K/mcL (0.6-4.6); Lymphocytes % 26.1 %; Mean Corpuscular HGB Conc 34.1 g/dL (31.6-35.5); Mean Corpuscular Hemoglobin 30.1 pg (28.0-33.3); Mean Corpuscular Volume 88.1 fL (83.0-100.0); Monocytes # 0.5 K/mcL (0.0-1.3); Monocytes % 8.6 %; Neutrophils # 3.6 K/mcL (1.6-8.9); Platelet Count 144 K/mcL (140-400); Red Blood Count 4.72 M/mcL (4.19-5.50); Red Cell Distribution Width 12.7 % (11.5-14.5); Segmented Neutrophils % 64.1 %
[2018-10-09 02:47] LABS: Heparin anti-factor XA UFH 0.46 IU/mL (0.30-0.70)
[2018-10-09 02:58] LABS: BUN/Creatinine Ratio 32 (6-26); Blood Urea Nitrogen 28 mg/dL (6-20); Calcium 8.8 mg/dL (8.6-10.3); Carbon Dioxide 33 mEq/L (23-29); Chloride 94 mEq/L (98-107); Glucose 171 mg/dL (70-105); Osmolality,Calculated 300 (280-300); Phosphorous 3.4 mg/dL (2.7-4.5); Potassium 3.4 mEq/L (3.5-5.1); Sodium 140 mEq/L (136-145); eGFR For Non-African Americans > 60 (> 60)
[2018-10-09] MEDS: Heparin 25,000 UNIT/250 ML D5W 25,000 UNIT/250 ML IV.SOLN IVC SCH (04:33)
[2018-10-09] MEDS: *HR* Enoxaparin 80 MG/0.8 ML SYRINGE SQ SCH ×2 (05:41→17:46)
[2018-10-09] MEDS: Furosemide 40 MG TABLET PO SCH ×2 (09:50→17:43)
[2018-10-09] MEDS: Gabapentin 400 MG CAPSULE PO SCH ×4 (09:50→20:42)
[2018-10-09] MEDS: predniSONE 20 MG TABLET PO SCH (09:50)
[2018-10-09] MEDS: amLODIPine 5 MG TABLET PO SCH (09:50)
[2018-10-09] MEDS: Insulin DETEMIR 100 UNIT/ML X5UNITS SQ SCH ×2 (09:54→20:43)
[2018-10-09] MEDS: Artificial Tears SOLN 15 ML BOTTLE BOTH EYES SCH ×4 (09:55→20:43)
[2018-10-09] MEDS: Insulin LISPRO 300 UNITS/3 ML VIAL SQ SCH ×4 (09:55→20:44)
[2018-10-09 10:32] LABS: INR 1.1; Prothrombin Time 12.8 Seconds (9.4-12.1)
--- NOTE | 2018-10-09 11:25 | Internal Med Progress Note ---
Hospitalist Progress Note - Encounter Date of Encounter: 10/09/18 Time of Encounter: 11:23 - Subjective Interval History: Patient was seen and examined earlier this morning. Sitting in recliner, reports of feeling better but remains restless. He states he always gets this way when he is away from his home. He was unable to sleep last night despite receiving Melatonin 3mg. He denies any shortness of breath, chest pain, fever, or chills. Ten point ROS is negative except as listed above. Discharge pending therapeutic INR. Unable to discharge pt on Lovenox SQ at home due to no prescription insurance and no home health care due to the holiday weekend - Exam Vitals: Temp Pulse Resp BP Pulse Ox 97.7 F 73 19 168/94 92 10/09/18 07:29 10/09/18 07:29 10/09/18 07:39 10/09/18 07:29 10/09/18 07:39 Exam: General: No acute distress, AAO x 3, morbidly obese HEENT: EOMI, PERRLA, NC/AT, no scleral icterus Respiratory: Clear to auscultate bilaterally, no wheezing, no rales Cardiovascular: Regular, Rate, Rhythm, No murmurs GI: Soft, Non tender, non distended, normal bowel sounds Ext: chronic venous stasis in bilateral LE, no tenderness, positive pulses Neuro: AAO x 3, no focal deficits, CN II-XII grossly intact Rest of the clinical exam is noncontributory - Assessment and Plan (1) Acute respiratory failure Current Visit: Yes Status: Resolved Assessment and Plan: Likely secondary to CHF exacerbation and PNA currently saturating well on room air will complete abx therapy for five days (Zosyn -day 09/19) continue Lasix 40mg PO BID continue fluid restriction diet monitor daily weights and strict I/Os. will closely monitor respiratory status (2) Acute exacerbation of CHF (congestive heart failure) Current Visit: Yes Status: Resolved Assessment and Plan: as listed above (3) Deep vein thrombosis of lower extremity Current Visit: No Status: Acute Assessment and Plan: Will initiate coumadin therapy, bridging with therapeutic dose of lovenox Discharge pending therapeutic INR pharmacist to dose coumadin will closely monitor INR (4) Diabetes mellitus Current Visit: Yes Status: Chronic Assessment and Plan: continue basal and sliding scale insulin coverage monitor fingerstick and blood glucose ADA diet (5) Hypertension Current Visit: Yes Status: Chronic Assessment and Plan: Noted to be hypertensive this morning increased Amlodipine to 10mg PO qdaily closely monitor BP (6) Pneumonia Current Visit: Yes Status: Acute Assessment and Plan: continue IV zosyn (day 09/19) (7) Pulmonary embolism Current Visit: Yes Status: Chronic Assessment and Plan: CTA chest negative for PE reported hx of chronic PE currently on anticoagulation for DVT (8) DVT prophylaxis Current Visit: Yes Status: Acute Assessment and Plan: lovenox SQ (9) COPD (chronic obstructive pulmonary disease) Current Visit: Yes Status: Chronic Assessment and Plan: not in acute exacerbation continue bronchodilator support as needed (10) Hypokalemia Current Visit: Yes Status: Acute Assessment and Plan: K supplemented continue to monitor electrolytes and replace as needed (11) Insomnia Current Visit: Yes Status: Acute Assessment and Plan: increased Melatonin dose at bedtime - Time Spent with Patient Total time spent is greater than 50% in coordination of care (as documented) at patient's floor/unit and/or counseling patient: 25 - 35 minutes Plan of Care Discussed with: patient (patient/RN) Internal Medicine: Result - Labs CBC & Chem 7: 10/09/18 02:03 10/09/18 02:03 Labs: Short CBC 10/09/18 Range/Units 02:03 WBC 5.6 (4.3-11.1) K/mcL Hgb 14.2 (12.9-16.9) g/dL Hct 41.6 (37.5-50.1) % Plt Count 144 (140-400) K/mcL Neutrophils # 3.6 (1.6-8.9) K/mcL BMP 10/09/18 02:03 Sodium 140 Potassium 3.4 L Chloride 94 L Carbon Dioxide 33 H BUN 28 H Creatinine 0.87 Glucose 171 H Calcium 8.8 - ABG Interpretation ABG results: ABG ABG pH 7.41 pH Units (7.32-7.45) 10/06/18 04:07 ABG pCO2 52 mmHg (35-45) H 10/06/18 04:07 ABG pO2 67 mmHg (85-104) L 10/06/18 04:07 ABG O2 Saturation 93 % (95-98) L 10/06/18 04:07 PT/INR, D-dimer PT 12.8 Seconds (9.4-12.1) H 10/09/18 02:03 09905 ng/mLFEU (0-500) H 10/04/18 21:33 Consult Discharge Plan - Plan Referrals: Mindy Santos, [employer]ER [Primary Care Provider] - __ (1) Acute respiratory failure Qualifiers: Respiratory failure complication: hypercapnia Qualified Code(s): J96.02 - Acute respiratory failure with hypercapnia (2) Acute exacerbation of CHF (congestive heart failure) Qualifiers: Heart failure type: unspecified Qualified Code(s): I50.9 - Heart failure, unspecified (3) Deep vein thrombosis of lower extremity Qualifiers: Affected thrombotic vein of extremity: unspecified vein of extremity Chronicity: acute Laterality: right Qualified Code(s): I82.401 - Acute embolism and thrombosis of unspecified deep veins of right lower extremity (4) Diabetes mellitus Qualifiers: Diabetes mellitus type: type 2 Diabetes mellitus mcc insulin use: without intermediate teacher use Diabetes mellitus complication status: with unspecified complications Qualified Code(s): E11.8 - Type 2 diabetes mellitus with unspecified complications (5) Hypertension Qualifiers: Hypertension type: essential hypertension Qualified Code(s): I10 - Essential (primary) hypertension (6) Pneumonia Qualifiers: Pneumonia type: due to unspecified organism Laterality: right Lung location: lower lobe of lung Qualified Code(s): J18.1 - Lobar pneumonia, unspecified organism (7) Pulmonary embolism Qualifiers: Pulmonary embolism type: unspecified Chronicity: unspecified Acute cor pulmonale presence: without acute cor pulmonale Qualified Code(s): I26.99 - Other pulmonary embolism without acute cor pulmonale (9) COPD (chronic obstructive pulmonary disease) Qualifiers: COPD type: unspecified COPD Qualified Code(s): J44.9 - Chronic obstructive pulmonary disease, unspecified (11) Insomnia Qualifiers: Insomnia type: unspecified Qualified Code(s): G47.00 - Insomnia, unspecified
[2018-10-09] MEDS ORDERED: *HR* Warfarin 5 MG TABLET PO ONE (18:00)
[2018-10-09] MEDS ORDERED: Melatonin 3 MG TABLET PO SCH (21:00)
[2018-10-10 02:56] LABS: BUN/Creatinine Ratio 29 (6-26); Blood Urea Nitrogen 21 mg/dL (6-20); Calcium 8.9 mg/dL (8.6-10.3); Carbon Dioxide 30 mEq/L (23-29); Chloride 95 mEq/L (98-107); Glucose 136 mg/dL (70-105); Osmolality,Calculated 287 (280-300); Phosphorous 3.6 mg/dL (2.7-4.5); Potassium 3.5 mEq/L (3.5-5.1); Sodium 136 mEq/L (136-145); eGFR For Non-African Americans > 60 (> 60)
[2018-10-10 03:20] LABS: Heparin anti-factor XA UFH 0.49 IU/mL (0.30-0.70); INR 1.1; Prothrombin Time 12.1 Seconds (9.4-12.1)
[2018-10-10] MEDS: Ipratropium/Albuterol Neb 3 ML IH SCH ×6 (04:06→23:55)
[2018-10-10] MEDS: *HR* Enoxaparin 80 MG/0.8 ML SYRINGE SQ SCH ×2 (06:33→16:58)
[2018-10-10] MEDS: Insulin LISPRO 300 UNITS/3 ML VIAL SQ SCH ×4 (07:51→20:55)
[2018-10-10] MEDS: Artificial Tears SOLN 15 ML BOTTLE BOTH EYES SCH ×4 (08:40→20:53)
[2018-10-10] MEDS: Furosemide 40 MG TABLET PO SCH ×2 (08:40→16:58)
[2018-10-10] MEDS: Gabapentin 400 MG CAPSULE PO SCH ×4 (08:40→20:49)
[2018-10-10] MEDS: predniSONE 20 MG TABLET PO SCH (08:41)
[2018-10-10] MEDS: amLODIPine 5 MG TABLET PO SCH (08:41)
[2018-10-10] MEDS ORDERED: ALPRAZolam 0.25 MG TABLET PO ONE (08:42)
[2018-10-10] MEDS: Insulin DETEMIR 100 UNIT/ML X5UNITS SQ SCH ×2 (08:51→20:50)
--- NOTE | 2018-10-10 09:21 | Internal Med Progress Note ---
Hospitalist Progress Note - Encounter Date of Encounter: 10/10/18 Time of Encounter: 09:19 - Subjective Interval History: Patient seen and examined with RN present at bedside. Pt sitting in chair and appears anxious and restless. States he was unable to sleep last night and found out about a new in the family,therefore is more anxious at this time. Denies any sob, chest pain, abd pain,n/v, fever, or chills. Ten point ROS is negative except as listed above - Exam Vitals: Temp Pulse Resp BP Pulse Ox 97.7 F 79 16 155/86 96 10/10/18 06:47 10/10/18 06:47 10/10/18 07:29 10/10/18 06:47 10/10/18 07:29 Exam: General: No acute distress, AAO x 3, morbidly obese, anxious HEENT: EOMI, NC/AT, no scleral icterus Respiratory: Clear to auscultate bilaterally, no wheezing, no rales Cardiovascular: Regular, Rate, Rhythm, No murmurs GI: Soft, Non tender, non distended, normal bowel sounds Ext: chronic venous stasis in bilateral LE, no tenderness, positive pulses Neuro: AAO x 3, no focal deficits, CN II-XII grossly intact Rest of the clinical exam is noncontributory - Assessment and Plan (1) Acute respiratory failure Current Visit: Yes Status: Resolved Assessment and Plan: Likely secondary to CHF exacerbation and PNA currently saturating well on room air completed five days of abx therapy with Zosyn on 10/09/18 continue Lasix 40mg PO BID continue fluid restriction diet monitor daily weights and strict I/Os. will closely monitor respiratory status (2) Acute exacerbation of CHF (congestive heart failure) Current Visit: Yes Status: Resolved Assessment and Plan: as listed above (3) Deep vein thrombosis of lower extremity Current Visit: No Status: Acute Assessment and Plan: continue coumadin therapy, bridging with therapeutic dose of lovenox Discharge pending therapeutic INR pharmacist to dose coumadin will closely monitor INR (4) Diabetes mellitus Current Visit: Yes Status: Chronic Assessment and Plan: continue basal and sliding scale insulin coverage monitor fingerstick and blood glucose ADA diet (5) Hypertension Current Visit: Yes Status: Chronic Assessment and Plan: BP better controlled continue current management will adjust antihypertensive medications as needed closely monitor BP (6) Pneumonia Current Visit: Yes Status: Acute Assessment and Plan: completed five days of abx therapy (7) Pulmonary embolism Current Visit: Yes Status: Chronic Assessment and Plan: CTA chest negative for PE reported hx of chronic PE currently on anticoagulation for DVT (8) DVT prophylaxis Current Visit: Yes Status: Acute (9) COPD (chronic obstructive pulmonary disease) Current Visit: Yes Status: Chronic Assessment and Plan: not in acute exacerbation continue bronchodilator support as needed noted to be on Prednisone, was started on this in the ICU (day 09/19) (10) Hypokalemia Current Visit: Yes Status: Resolved Assessment and Plan: resolved continue to monitor electrolytes and replace as needed (11) Insomnia Current Visit: Yes Status: Acute Assessment and Plan: will add Ambien at bedtime one time dose of Xanax 0.25 mg PO to be given now due to increased anxiety. Pt educated on the adverse effects and risks associated with Xanax. DVT Prophylaxis: Lovenox SQ - Time Spent with Patient Total time spent is greater than 50% in coordination of care (as documented) at patient's floor/unit and/or counseling patient: 25 - 35 minutes Plan of Care Discussed with: patient (patient/RN) Internal Medicine: Result - Labs CBC & Chem 7: 10/09/18 02:03 10/10/18 01:43 Labs: BMP 10/10/18 01:43 Sodium 136 Potassium 3.5 Chloride 95 L Carbon Dioxide 30 H BUN 21 H Creatinine 0.73 Glucose 136 H Calcium 8.9 - ABG Interpretation ABG results: ABG ABG pH 7.41 pH Units (7.32-7.45) 10/06/18 04:07 ABG pCO2 52 mmHg (35-45) H 10/06/18 04:07 ABG pO2 67 mmHg (85-104) L 10/06/18 04:07 ABG O2 Saturation 93 % (95-98) L 10/06/18 04:07 PT/INR, D-dimer PT 12.1 Seconds (9.4-12.1) 10/10/18 01:43 61596 ng/mLFEU (0-500) H 10/04/18 21:33 Consult Discharge Plan - Plan Referrals: Mindy Santos, [employer]GAN[employer] CHEMISTRY PROFESSOR [Primary Care Provider] - (1) Acute respiratory failure Qualifiers: Respiratory failure complication: hypercapnia Qualified Code(s): J96.02 - Acute respiratory failure with hypercapnia (2) Acute exacerbation of CHF (congestive heart failure) Qualifiers: Heart failure type: unspecified Qualified Code(s): I50.9 - Heart failure, unspecified (3) Deep vein thrombosis of lower extremity Qualifiers: Affected thrombotic vein of extremity: unspecified vein of extremity Chronicity: acute Laterality: right Qualified Code(s): I82.401 - Acute embolism and thrombosis of unspecified deep veins of right lower extremity (4) Diabetes mellitus Qualifiers: Diabetes mellitus type: type 2 Diabetes mellitus chcf insulin use: without chcf use Diabetes mellitus complication status: with unspecified complications Qualified Code(s): E11.8 - Type 2 diabetes mellitus with unspecified complications (5) Hypertension Qualifiers: Hypertension type: essential hypertension Qualified Code(s): I10 - Essential (primary) hypertension (6) Pneumonia Qualifiers: Pneumonia type: due to unspecified organism Laterality: right Lung location: lower lobe of lung Qualified Code(s): J18.1 - Lobar pneumonia, unspecified organism (7) Pulmonary embolism Qualifiers: Pulmonary embolism type: unspecified Chronicity: unspecified Acute cor pulmonale presence: without acute cor pulmonale Qualified Code(s): I26.99 - Other pulmonary embolism without acute cor pulmonale (11) Insomnia Qualifiers: Insomnia type: unspecified Qualified Code(s): G47.00 - Insomnia, unspecified
[2018-10-10] MEDS: OXYCODONE Oral CONC 10 MG/0.5 ML ORAL.SYG SL PRN (11:18)
[2018-10-10] MEDS ORDERED: *HR* Warfarin 5 MG TABLET PO ONE (18:00)
[2018-10-11] MEDS ORDERED: *HR* Enoxaparin 80 MG/0.8 ML SYRINGE SQ SCH
[2018-10-11] MEDS: Ipratropium/Albuterol Neb 3 ML IH SCH ×3 (04:02→11:10)
[2018-10-11 05:35] LABS: INR 1.1; Prothrombin Time 11.9 Seconds (9.4-12.1)
[2018-10-11 05:45] LABS: BUN/Creatinine Ratio 26 (6-26); Blood Urea Nitrogen 21 mg/dL (6-20); Carbon Dioxide 33 mEq/L (23-29); Chloride 99 mEq/L (98-107); Glucose 173 mg/dL (70-105); Osmolality,Calculated 291 (280-300); Phosphorous 3.4 mg/dL (2.7-4.5); Potassium 3.4 mEq/L (3.5-5.1); Sodium 137 mEq/L (136-145); eGFR For Non-African Americans > 60 (> 60)
[2018-10-11] MEDS: *HR* Enoxaparin 80 MG/0.8 ML SYRINGE SQ SCH (06:02)
[2018-10-11] MEDS: Insulin LISPRO 300 UNITS/3 ML VIAL SQ SCH ×2 (08:18→11:56)
[2018-10-11] MEDS: Artificial Tears SOLN 15 ML BOTTLE BOTH EYES SCH ×2 (08:18→11:56)
[2018-10-11] MEDS: Insulin DETEMIR 100 UNIT/ML X5UNITS SQ SCH (08:18)
[2018-10-11] MEDS: Gabapentin 400 MG CAPSULE PO SCH ×2 (08:19→11:56)
[2018-10-11] MEDS: Furosemide 40 MG TABLET PO SCH (08:19)
[2018-10-11] MEDS: amLODIPine 5 MG TABLET PO SCH (08:19)
[2018-10-11] MEDS: Acetaminophen 325 MG TABLET PO PRN (08:35)
--- NOTE | 2018-10-11 11:18 | Physician Discharge Referral ---
Home Health/Hosp Referral Info Transfer to: Home Health Provider in Charge Post Discharge: PCP - Diagnosis (1) Acute respiratory failure Priority: Primary Status: Resolved (2) Acute exacerbation of CHF (congestive heart failure) Priority: Secondary Status: Resolved (3) Deep vein thrombosis of lower extremity Priority: Secondary Status: Acute (4) Diabetes mellitus Priority: Secondary Status: Chronic (5) Hypertension Priority: Secondary Status: Chronic (6) Pneumonia Priority: Secondary Status: Resolved (7) Pulmonary embolism Priority: Secondary Status: Chronic (8) DVT prophylaxis Priority: Secondary Status: Acute (9) COPD (chronic obstructive pulmonary disease) Priority: Secondary Status: Chronic (10) Hypokalemia Priority: Secondary Status: Resolved (11) Insomnia Priority: Secondary Status: Acute - Respiratory Orders Smoking Cessation: Smoking cessation has been advised. For more information, call the [employer] Tobacco Quit Line at 2-278-YCPI-NOW. - Services Needed Following services are medically necessary services: Nursing (daily INR lab draws and monitoring. Send INR results to coumadin clinic & PCP), Home Health Aide - Transfer Medications Prescriptions: Furosemide [Lasix] 40 mg PO BIDDIURETIC #60 tablet Metoprolol [Lopressor] 12.5 mg PO BID #60 tablet Metformin HCl 500 mg PO BID #60 tablet amLODIPine [Norvasc] 10 mg PO DAILY #30 tablet OXYCODONE Oral CONC [Oxycodone Oral Conc] 5 mg SL Q6HR PRN 2 Days #6 oral.syg PRN Reason: Severe Pain Home Medications: Gabapentin 800 mg PO QID 07/02/16 [History] Enoxaparin [Lovenox] 160 mg SQ Q12HR syringe 10/11/18 [Rx] Furosemide [Lasix] 40 mg PO BIDDIURETIC #60 tablet 10/11/18 [Rx] Metformin HCl 500 mg PO BID #60 tablet 10/11/18 [Rx] Metoprolol [Lopressor] 12.5 mg PO BID #60 tablet 10/11/18 [Rx] OXYCODONE Oral CONC [Oxycodone Oral Conc] 5 mg SL Q6HR PRN 2 Days #6 oral.syg 10/11/18 [Rx] Warfarin perPT [Coumadin perPT] 1 each PO DAILY@1800 PRN each 10/11/18 [Rx] amLODIPine [Norvasc] 10 mg PO DAILY #30 tablet 10/11/18 [Rx] Allergies/Adverse Reactions: Allergy/AdvReac Type Severity Reaction Status Date / Time codeine Allergy Hives Verified 07/02/16 09:15 Certification: Further, I certify that my clinical findings support that this patient is homebound (i.e. absences from home require considerable and taxing effort and are for medical reasons or judaism services or infrequently or short duration when for other reasons) because: Homebound Reason: Patient requires assistance of a person or device to safely leave home Attestation: My signature below is to certify that this patient is under my care and that I, or nurse practitioner, or a physician's statistical assistant working with me, has a [id number] encounter with this patient.
--- NOTE | 2018-10-11 11:20 | Discharge Summary ---
- NOTES TO OUTPATIENT PROVIDER Notes to Outpatient Provider: Pt admitted for Acute respiratory failure requiring intubation secondary to CHF exacerbation, COPD exacerbation, and PNA. Successfully extubated, being discharged with PO lasix. Also found to have HbA1C of 7.8, being discharged to Metformin 500mg PO BID. Also diagnosed with LE DVT, started on coumadin, briding with Lovenox. Unable to use NOAC due to no prescription insurance. Please monitor INR. Date of Encounter: 10/11/18 Time of Encounter: 11:18 - Discharge Diagnosis (1) Acute respiratory failure Priority: Primary Status: Resolved Qualifiers: Respiratory failure complication: hypercapnia Qualified Code(s): J96.02 - Acute respiratory failure with hypercapnia (2) Acute exacerbation of CHF (congestive heart failure) Priority: Secondary Status: Resolved Qualifiers: Heart failure type: unspecified Qualified Code(s): I50.9 - Heart failure, unspecified (3) Deep vein thrombosis of lower extremity Priority: Secondary Status: Acute Qualifiers: Affected thrombotic vein of extremity: unspecified vein of extremity Chronicity: acute Laterality: right Qualified Code(s): I82.401 - Acute embolism and thrombosis of unspecified deep veins of right lower extremity (4) Diabetes mellitus Priority: Secondary Status: Chronic Qualifiers: Diabetes mellitus type: type 2 Diabetes mellitus terminal computer operator insulin use: without usp use Diabetes mellitus complication status: with unspecified complications Qualified Code(s): E11.8 - Type 2 diabetes mellitus with unspecified complications (5) Hypertension Priority: Secondary Status: Chronic Qualifiers: Hypertension type: essential hypertension Qualified Code(s): I10 - Essential (primary) hypertension (6) Pneumonia Priority: Secondary Status: Resolved Qualifiers: Pneumonia type: due to unspecified organism Laterality: right Lung location: lower lobe of lung Qualified Code(s): J18.1 - Lobar pneumonia, unspecified organism (7) Pulmonary embolism Priority: Secondary Status: Chronic Qualifiers: Pulmonary embolism type: unspecified Chronicity: unspecified Acute cor pulmonale presence: without acute cor pulmonale Qualified Code(s): I26.99 - Other pulmonary embolism without acute cor pulmonale (8) DVT prophylaxis Priority: Secondary Status: Acute (9) COPD (chronic obstructive pulmonary disease) Priority: Secondary Status: Chronic (10) Hypokalemia Priority: Secondary Status: Resolved (11) Insomnia Priority: Secondary Status: Acute Qualifiers: Insomnia type: unspecified Qualified Code(s): G47.00 - Insomnia, unspecified Hospital course: Mr. Nuñez is a 53 year old male with PMH of CHF, COPD, DM, hypertension, peripheral vascular disease, chronic pulmonary embolism who was transferred from [facility] for management of acute respiratory distress. Upon arrival to the ER patient was found to be in acute respiratory failure requiring mechanical intubation and was further transferred to ICU. Patient was noted to be in volume overload secondary to congestive heart failure exacerbation and pneumonia. He was started on IV Lasix and antibiotic support. He responded appropriately to this therapy and was successfully extubated. He was further transferred to 2A. He was also noted to have lower extremity DVT during this hospitalization. He was initially started on heparin drip in the ICU. Patient was transitioned to Coumadin with bridging with Lovenox therapy. Patient was unable to be started on newer anticoagulant agents due to lack of prescription insurance, and patient was not able to afford these medications as outpatient. Patient's hospital discharge has been delayed due to subtherapeutic INR and no provision of home health services or INR monitoring due to the long weekend. Today the social worker school and the clinical pharmacists were able to make arrangements for therapeutic dose of Lovenox and Coumadin to be given to the patient for free on discharge, with arrangement of home health services with nursing, starting tomorrow to monitor INR. Pharmacist is also to arrange Coumadin clinic appointment this week. Patient was educated on Lovenox administration. Patient reported that he has had another in the family and has been extremely anxious due to that. Patient has been noncompliant with his home medications for the past year since his brother . Patient is educated about the need to remain compliant with his home medications after discharge. At this time patient is willing to comply. Patient was noted to be hypertensive this morning. Will recheck blood pressure after administration of morning medications,if blood pressure is within acceptable range, patient will be discharged to home today. Patient is to follow-up with PCP, coumadin clinic, cardiology, and pulmonology after discharge. Patient has finished antibiotic course for the pneumonia during this hospitalization and has been transitioned to oral Lasix. Patient demonstrates understanding of his hospital course and agrees with the discharge care and plan. Pt was seen and examined today Discharge discussed with: patient, nurse, social work, other (pharmacist) - Time Spent with Patient Total time spent providing and/or coordinating discharge services: 40 minutes Time spent: Greater than 30 minutes - Discharge Medications Prescriptions: New Warfarin perPT [Coumadin perPT] 1 each PO DAILY@1800 PRN each PRN Reason: See Comments Furosemide [Lasix] 40 mg PO BIDDIURETIC #60 tablet Metoprolol [Lopressor] 12.5 mg PO BID #60 tablet Enoxaparin [Lovenox] 160 mg SQ Q12HR syringe Metformin HCl 500 mg PO BID #60 tablet amLODIPine [Norvasc] 10 mg PO DAILY #30 tablet OXYCODONE Oral CONC [Oxycodone Oral Conc] 5 mg SL Q6HR PRN 2 Days #6 oral.syg PRN Reason: Severe Pain Continued Gabapentin 800 mg PO QID Home Medications: Gabapentin 800 mg PO QID 07/02/16 [History] Enoxaparin [Lovenox] 160 mg SQ Q12HR syringe 10/11/18 [Rx] Furosemide [Lasix] 40 mg PO BIDDIURETIC #60 tablet 10/11/18 [Rx] Metformin HCl 500 mg PO BID #60 tablet 10/11/18 [Rx] Metoprolol [Lopressor] 12.5 mg PO BID #60 tablet 10/11/18 [Rx] OXYCODONE Oral CONC [Oxycodone Oral Conc] 5 mg SL Q6HR PRN 2 Days #6 oral.syg 10/11/18 [Rx] Warfarin perPT [Coumadin perPT] 1 each PO DAILY@1800 PRN each 10/11/18 [Rx] amLODIPine [Norvasc] 10 mg PO DAILY #30 tablet 10/11/18 [Rx] Allergies/Adverse Reactions: Allergy/AdvReac Type Severity Reaction Status Date / Time codeine Allergy Hives Verified 07/02/16 09:15 Date of admission: 10/04/18 20:31 Primary care physician: CYNDY Haro Consults: 10/05/18 02:50 Consult to Critical Care [CONS] Routine Consulting Provider: [facility] [place] Reason for Consult: Acute resp failure, s/p intubation Time Notified: 02:51 Call Completed: No 10/05/18 10:55 Consult to Nutrition [CONS] Routine Comment: Consulting Provider: NUTRITION Reason for Dietary Consult: Tube Feed Start & Manage 10/07/18 15:10 Consult to Physical Therapy [CONS] Routine Comment: Evaluate, develop and implement POC Reason for Consult: For ambulation. Does have an active DVT in right leg. But would benefit from deconditioning therapy. Does patient have active BEDREST order?: No Is patient medically & hemodynamically stable?: Yes Discharging clinician: Ana Vidal Anticipated date of discharge: 10/11/18 - Constitutional Vitals: Temp Pulse Resp BP Pulse Ox 98.0 F 73 16 160/68 98 10/11/18 06:50 10/11/18 06:50 10/11/18 11:11 10/11/18 06:50 10/11/18 11:11 Exam: General: No acute distress, AAO x 3, morbidly obese, anxious HEENT: EOMI, NC/AT, no scleral icterus Respiratory: Clear to auscultate bilaterally, no wheezing, no rales Cardiovascular: Regular, Rate, Rhythm, No murmurs GI: Soft, Non tender, non distended, normal bowel sounds Ext: chronic venous stasis in bilateral LE, no tenderness, positive pulses Neuro: AAO x 3, no focal deficits, CN II-XII grossly intact Rest of the clinical exam is noncontributory - Patient Status Disposition: Home Health Service Functional capacity at discharge: independent ambulation - Ambulatory Orders Ambulatory Orders: Prothrombin Time INR [COAG] Time Frame: 3 Days, Facility: [facility], Location: Lab Prothrombin Time INR [COAG] Time Frame: 10/14/18, Facility: [facility], Location: Lab Prothrombin Time INR [COAG] Time Frame: 10/15/18, Facility: [facility], Location: Lab Prothrombin Time INR [COAG] Time Frame: 10/16/18, Facility: [facility], Location: Lab Prothrombin Time INR [COAG] Time Frame: 10/17/18, Facility: [facility], Location: Lab Prothrombin Time INR [COAG] Time Frame: 10/18/18, Facility: [facility], Location: Lab - Discharge Instructions Follow Up With: Mindy Santos CNP [Primary Care Provider] - Additional Instructions: 1. Please follow up with your primary care physician within five days after your discharge from the hospital. 2. Please follow up with cardiology and pulmonology within one week after your discharge from the hospital. 3. Your home medications have been changed as follows: -Amlodipine 10mg once a day is added -Lasix 40mg twice a day is added -Metoprolol 12.5mg twice a day is added -Metformin 500mg twice a day is added 4. Continue lovenox injections twice a day along with coumadin once a day. Home health services are arranged for INR monitoring and coumadin clinic appointment is going to be set up for INR monitoring and coumadin dosing. 5. Lovenox and coumadin increase your bleeding risk, If you sustain a fall or have any acute bleeding, please seek medical help immediately. 6. Please seek medical help immediately if you have difficulty breathing or if chest pain occurs. - Diet and Activity Activity: increase activity as tolerated Diet: diabetic diet, low fat, low cholesterol, low salt diet
[2018-10-11 13:32] VITALS: BP 143/74
[2018-10-11] MEDS ORDERED: *HR* Warfarin 10 MG TABLET PO ONE (18:00)
== END 2018-10-11 15:15 | disposition home health service (06) | DRG 871 ==
LOC: SUATTDRO 20:31 → ICNU 20:31 → 2ANU 10-07 17:13
PROVIDERS: ADMIT Internal Medicine Nephrology; ATTEND Internal Medicine

== ENCOUNTER 2018-12-31 00:55 | Inpatient (IN) ==
[2018-12-31] MEDS ORDERED: Isovue-370 500 ML BOTTLE IVP ONE (01:09)
[2018-12-31] MEDS ORDERED: Nitroglycerin 0.4 MG TAB.SUBL SL PRN (01:12)
[2018-12-31] MEDS ORDERED: Aspirin 81 MG TAB.CHEW PO STA (01:12)
[2018-12-31 02:03] LABS: Basophils % 0.6 %; Eosinophils # 0.1 K/mcL (0.0-0.6); Eosinophils % 2.1 %; Immature Granulocytes % 0.7 % (0-4); Lymphocytes % 29.4 %; Mean Corpuscular HGB Conc 33.3 g/dL (31.6-35.5); Mean Corpuscular Hemoglobin 27.8 pg (28.0-33.3); Mean Corpuscular Volume 83.5 fL (83.0-100.0); Mean Platelet Volume 9.6 fL (9.4-12.4); Monocytes # 0.5 K/mcL (0.0-1.3); Monocytes % 8.1 %; Platelet Count 192 K/mcL (140-400); Red Blood Count 5.03 M/mcL (4.19-5.50); Red Cell Distribution Width 14.1 % (11.5-14.5); Segmented Neutrophils % 59.1 %; White Blood Count 6.7 K/mcL (4.3-11.1)
[2018-12-31] MEDS ORDERED: *HR* FentaNYL (PF) 100 MCG/2 ML VIAL IVP ONE ×2 (02:06→03:53)
[2018-12-31 02:10] LABS: INR 2.3; Prothrombin Time 25.9 Seconds (9.4-12.1)
[2018-12-31 02:13] LABS: Activated Partial Thrombo Time 40.8 Seconds (26.0-36.0); Albumin 4.3 g/dL (3.5-5.7); Albumin/Globulin Ratio 1.3 (1.1-2.2); Bilirubin,Direct 0.2 mg/dL (0.0-0.2); Bilirubin,Indirect 0.5 mg/dL (0.0-1.2); Bilirubin,Total 0.7 mg/dL (0.3-1.0); Globulin 3.2 g/dL (2.4-3.5); Total Protein 7.5 g/dL (6.4-8.9)
[2018-12-31 02:15] LABS: BUN/Creatinine Ratio 23 (6-26); Blood Urea Nitrogen 18 mg/dL (6-20); Calcium 9.3 mg/dL (8.6-10.3); Carbon Dioxide 26 mEq/L (23-29); Chloride 101 mEq/L (98-107); Glucose 186 mg/dL (70-105); Osmolality,Calculated 291 (280-300); Potassium 3.5 mEq/L (3.5-5.1); Sodium 137 mEq/L (136-145); eGFR For African Americans > 60 (> 60); eGFR For Non-African Americans > 60 (> 60)
[2018-12-31 02:16] LABS: Troponin I < 0.03 ng/mL (< 0.04)
[2018-12-31] MEDS ORDERED: Morphine Sulfate 2 MG/ML SYRINGE IVP PRN (05:32)
[2018-12-31] MEDS ORDERED: Ondansetron 4 MG/2 ML VIAL IVP PRN (05:38)
[2018-12-31] MEDS ORDERED: Naloxone 0.4 MG/ML INJ IVP PRN (05:38)
[2018-12-31] MEDS ORDERED: *HR* Dextrose 50 % in Water (Syg) 50 ML SYRINGE IVP PRN (05:48)
[2018-12-31] MEDS ORDERED: Dextrose Gel 15 GM/37.5 ML TUBE PO PRN ×2 (05:48)
[2018-12-31] MEDS ORDERED: D5% in Water 1,000 ML IVC PRN (05:48)
[2018-12-31] MEDS ORDERED: Insulin LISPRO 300 UNITS/3 ML VIAL SQ SCH (06:00)
[2018-12-31] MEDS ORDERED: Acetaminophen 325 MG TABLET PO PRN (06:15)
[2018-12-31] MEDS ORDERED: amLODIPine 5 MG TABLET PO SCH (09:00)
[2018-12-31 09:18] LABS: Estimated Average Glucose 200 mg/dl
[2018-12-31] MEDS: Insulin LISPRO 300 UNITS/3 ML VIAL SQ SCH ×4 (10:32→21:01)
[2018-12-31] MEDS: Gabapentin 400 MG CAPSULE PO SCH ×4 (10:33→20:57)
[2018-12-31] MEDS: amLODIPine 5 MG TABLET PO SCH (10:33)
[2018-12-31] MEDS: Furosemide 40 MG TABLET PO SCH ×2 (10:33→16:29)
[2018-12-31] MEDS ORDERED: Regadenoson 0.4 MG/5 ML SYRINGE IVP ONE ×2 (11:42→11:59)
[2018-12-31] MEDS ORDERED: Perflutren Lipid Microsphere 1.3 ML in 0.9 % Sodium Chloride 8.7 ML IVP ONE (14:00)
[2018-12-31] MEDS ORDERED: Perflutren Lipid Microsphere 2 ML VIAL ONE (14:06)
[2018-12-31] MEDS: *HR* OxyCODONE Immed Rel 5 MG TABLET PO PRN ×2 (14:28→20:57)
[2018-12-31] MEDS ORDERED: Warfarin perPT PO PRN (18:00)
[2018-12-31] MEDS ORDERED: *HR* Warfarin 7.5 MG TABLET PO ONE (18:00)
[2019-01-01 02:29] LABS: Hematocrit 42.3 % (37.5-50.1); Mean Corpuscular HGB Conc 33.1 g/dL (31.6-35.5); Mean Corpuscular Volume 84.6 fL (83.0-100.0); Mean Platelet Volume 9.7 fL (9.4-12.4); Platelet Count 160 K/mcL (140-400); Red Cell Distribution Width 14.3 % (11.5-14.5)
[2019-01-01 02:46] LABS: INR 4.5; Prothrombin Time 50.9 Seconds (9.4-12.1)
[2019-01-01 02:53] LABS: BUN/Creatinine Ratio 27 (6-26); Blood Urea Nitrogen 22 mg/dL (6-20); Calcium 9.1 mg/dL (8.6-10.3); Carbon Dioxide 29 mEq/L (23-29); Chloride 100 mEq/L (98-107); Chol/HDL Ratio 3.4 (0-4.9); Cholesterol 131 mg/dL (< 200); Glucose 234 mg/dL (70-105); HDL Cholesterol 38 mg/dL (40-59); LDL Cholesterol,Calculated 45 mg/dL (0-99); Magnesium 1.7 mg/dL (1.6-2.6); Osmolality,Calculated 295 (280-300); Potassium 3.8 mEq/L (3.5-5.1); Sodium 137 mEq/L (136-145); Triglycerides 238 mg/dL (< 150); eGFR For African Americans > 60 (> 60); eGFR For Non-African Americans > 60 (> 60)
[2019-01-01] MEDS: *HR* OxyCODONE Immed Rel 5 MG TABLET PO PRN ×4 (03:43→19:54)
[2019-01-01] MEDS: amLODIPine 5 MG TABLET PO SCH (09:21)
[2019-01-01] MEDS: Gabapentin 400 MG CAPSULE PO SCH ×4 (09:22→19:53)
[2019-01-01] MEDS: Furosemide 40 MG TABLET PO SCH ×2 (09:22→17:10)
[2019-01-01] MEDS: Insulin LISPRO 300 UNITS/3 ML VIAL SQ SCH ×4 (09:33→21:01)
[2019-01-01] MEDS: traZODone 50 MG TABLET PO SCH (19:55)
[2019-01-02] MEDS: *HR* OxyCODONE Immed Rel 5 MG TABLET PO PRN ×4 (01:19→21:00)
[2019-01-02] MEDS: *HR* LORazepam 1 MG TABLET PO PRN ×3 (02:16→20:59)
[2019-01-02 05:53] LABS: Hematocrit 40.2 % (37.5-50.1); Hemoglobin 13.1 g/dL (12.9-16.9); Mean Corpuscular HGB Conc 32.6 g/dL (31.6-35.5); Mean Corpuscular Hemoglobin 27.5 pg (28.0-33.3); Mean Corpuscular Volume 84.5 fL (83.0-100.0); Mean Platelet Volume 9.9 fL (9.4-12.4); Platelet Count 132 K/mcL (140-400); Red Blood Count 4.76 M/mcL (4.19-5.50); Red Cell Distribution Width 14.1 % (11.5-14.5)
[2019-01-02 06:09] LABS: INR 1.9; Prothrombin Time 21.9 Seconds (9.4-12.1)
[2019-01-02 06:13] LABS: BUN/Creatinine Ratio 27 (6-26); Blood Urea Nitrogen 18 mg/dL (6-20); Calcium 8.6 mg/dL (8.6-10.3); Carbon Dioxide 28 mEq/L (23-29); Chloride 100 mEq/L (98-107); Glucose 219 mg/dL (70-105); Osmolality,Calculated 289 (280-300); Potassium 3.7 mEq/L (3.5-5.1); Sodium 135 mEq/L (136-145); eGFR For African Americans > 60 (> 60); eGFR For Non-African Americans > 60 (> 60)
[2019-01-02] MEDS ORDERED: *HR* Heparin 5,000 UNIT/ML VIAL IVP PRN ×2 (07:37)
[2019-01-02] MEDS: Furosemide 40 MG TABLET PO SCH ×2 (09:03→16:28)
[2019-01-02] MEDS: Aspirin Enteric Coated 81 MG Tablet PO SCH (09:04)
[2019-01-02] MEDS: Gabapentin 400 MG CAPSULE PO SCH ×4 (09:04→20:59)
[2019-01-02] MEDS: Isosorbide MONOnitrate (24 HR) 30 MG TAB.ER.24H PO SCH (09:04)
[2019-01-02] MEDS: Insulin LISPRO 300 UNITS/3 ML VIAL SQ SCH ×4 (09:05→21:15)
[2019-01-02 09:59] LABS: Hematocrit 40.5 % (37.5-50.1); Hemoglobin 13.3 g/dL (12.9-16.9); Mean Corpuscular HGB Conc 32.8 g/dL (31.6-35.5); Mean Corpuscular Hemoglobin 27.8 pg (28.0-33.3); Mean Corpuscular Volume 84.6 fL (83.0-100.0); Mean Platelet Volume 10.1 fL (9.4-12.4); Platelet Count 141 K/mcL (140-400); Red Blood Count 4.79 M/mcL (4.19-5.50); Red Cell Distribution Width 14.2 % (11.5-14.5); White Blood Count 5.2 K/mcL (4.3-11.1)
[2019-01-02] MEDS: Heparin 25,000 UNIT/250 ML D5W 25,000 UNIT/250 ML IV.SOLN IVC SCH ×2 (10:01→20:34)
[2019-01-02 10:06] LABS: Heparin anti-factor XA UFH 0.03 IU/mL (0.30-0.70)
[2019-01-02 10:07] LABS: INR 1.7; Prothrombin Time 19.4 Seconds (9.4-12.1)
[2019-01-02] MEDS: traZODone 50 MG TABLET PO SCH (20:59)
[2019-01-02 22:43] LABS: Heparin anti-factor XA UFH 0.38 IU/mL (0.30-0.70)
[2019-01-02 22:44] LABS: INR 1.4; Prothrombin Time 16.3 Seconds (9.4-12.1)
[2019-01-03] MEDS: *HR* OxyCODONE Immed Rel 5 MG TABLET PO PRN ×4 (03:21→18:09)
[2019-01-03 05:59] LABS: Hematocrit 38.8 % (37.5-50.1); Mean Corpuscular HGB Conc 33.5 g/dL (31.6-35.5); Mean Corpuscular Hemoglobin 28.6 pg (28.0-33.3); Mean Corpuscular Volume 85.3 fL (83.0-100.0); Platelet Count 134 K/mcL (140-400); Red Blood Count 4.55 M/mcL (4.19-5.50); Red Cell Distribution Width 14.1 % (11.5-14.5); White Blood Count 4.5 K/mcL (4.3-11.1)
[2019-01-03 06:14] LABS: INR 1.4; Prothrombin Time 16.4 Seconds (9.4-12.1)
[2019-01-03 06:20] LABS: BUN/Creatinine Ratio 23 (6-26); Blood Urea Nitrogen 15 mg/dL (6-20); Calcium 8.9 mg/dL (8.6-10.3); Carbon Dioxide 29 mEq/L (23-29); Chloride 101 mEq/L (98-107); Glucose 170 mg/dL (70-105); Osmolality,Calculated 291 (280-300); Potassium 3.7 mEq/L (3.5-5.1); Sodium 138 mEq/L (136-145); eGFR For African Americans > 60 (> 60); eGFR For Non-African Americans > 60 (> 60)
[2019-01-03] MEDS: Gabapentin 400 MG CAPSULE PO SCH ×3 (08:35→16:20)
[2019-01-03] MEDS: Aspirin Enteric Coated 81 MG Tablet PO SCH (08:35)
[2019-01-03] MEDS: Isosorbide MONOnitrate (24 HR) 30 MG TAB.ER.24H PO SCH (08:35)
[2019-01-03] MEDS: Furosemide 40 MG TABLET PO SCH ×2 (08:36→16:21)
[2019-01-03] MEDS: Insulin LISPRO 300 UNITS/3 ML VIAL SQ SCH ×3 (08:36→16:21)
[2019-01-03] MEDS: Heparin 25,000 UNIT/250 ML D5W 25,000 UNIT/250 ML IV.SOLN IVC SCH ×2 (08:46→17:45)
[2019-01-03] MEDS: *HR* LORazepam 1 MG TABLET PO PRN (12:40)
[2019-01-03] MEDS ORDERED: Gadolinium Contrast Agent (WT Based) IV PRN (12:52)
[2019-01-03] MEDS ORDERED: 0.9 % Sodium Chloride 1,000 ML ONE (13:46)
[2019-01-03] MEDS ORDERED: *HR* FentaNYL (PF) 100 MCG/2 ML VIAL ONE (13:46)
[2019-01-03] MEDS ORDERED: *HR* Midazolam HCl 2 MG/2 ML VIAL ONE (13:46)
[2019-01-03] MEDS ORDERED: Iopamidol 125 ML INFUS..BTL ONE (13:47)
[2019-01-03] MEDS ORDERED: Nitroglycerin 1,000 MCG/10 ML VIAL IV ONE (13:47)
[2019-01-03] MEDS ORDERED: Heparin 1,000 UNITS/500 mL 500 ML ONE (13:47)
[2019-01-03] MEDS ORDERED: *HR* Heparin 10,000 UNIT/10 ML VIAL ONE (13:47)
[2019-01-03] MEDS ORDERED: *HR* Warfarin 10 MG TABLET PO ONE (17:23)
[2019-01-03 18:52] VITALS: BP 153/81
== END 2019-01-03 18:53 | disposition home or self-care (01) | DRG 287 ==
LOC: EMEROOARM 00:55 → 2ANU 00:55
PROVIDERS: ADMIT Internal Medicine Nephrology; ATTEND Internal Medicine Nephrology

== ENCOUNTER 2019-02-26 10:06 | Observation (INO) ==
[2019-02-26] MEDS ORDERED: Acetaminophen 325 MG TABLET PO PRN (13:09)
[2019-02-26] MEDS ORDERED: Naloxone 0.4 MG/ML INJ IVP PRN (13:09)
[2019-02-26] MEDS ORDERED: Albuterol 2.5 MG/3 ML NEBULIZER IH PRN (13:10)
[2019-02-26] MEDS ORDERED: Ketorolac 30 MG/ML VIAL IVP ONE (13:13)
[2019-02-26] MEDS ORDERED: Isovue-370 500 ML BOTTLE IVP ONE (13:29)
[2019-02-26] MEDS: *HR* Enoxaparin 150 MG/ML SYRINGE SQ SCH (13:45)
[2019-02-26] MEDS: Azithromycin 500 MG in 0.9 % Sodium Chloride 250 ML IVPB SCH (13:46)
[2019-02-26] MEDS ORDERED: D5% in Water 1,000 ML IVC PRN (14:26)
[2019-02-26] MEDS ORDERED: Dextrose Gel 15 GM/37.5 ML TUBE PO PRN ×2 (14:26)
[2019-02-26] MEDS ORDERED: *HR* Dextrose 50 % in Water (Syg) 50 ML SYRINGE IVP PRN (14:26)
[2019-02-26] MEDS: Ipratropium/Albuterol Neb 3 ML IH SCH ×3 (15:31→21:55)
[2019-02-26 16:40] LABS: INR 1.4; Prothrombin Time 16.4 Seconds (9.4-12.1)
[2019-02-26] MEDS: Furosemide 40 MG TABLET PO SCH (17:08)
[2019-02-26] MEDS: Insulin LISPRO 300 UNITS/3 ML VIAL SQ SCH ×2 (17:08→20:06)
[2019-02-26] MEDS: Gabapentin 400 MG CAPSULE PO SCH ×2 (17:08→20:06)
[2019-02-26] MEDS: MethylPREDNISolone 40 MG/ML VIAL IVP SCH ×2 (17:08→23:48)
[2019-02-26] MEDS ORDERED: Warfarin perPT PO PRN (18:00)
[2019-02-26] MEDS ORDERED: *HR* Warfarin 10 MG TABLET PO ONE (18:00)
[2019-02-26] MEDS ORDERED: *HR* OxyCODONE Immed Rel 5 MG TABLET PO ONE (23:41)
[2019-02-27] MEDS: Ipratropium/Albuterol Neb 3 ML IH SCH ×4 (04:10→21:59)
[2019-02-27] MEDS: *HR* Enoxaparin 150 MG/ML SYRINGE SQ SCH ×2 (04:52→17:24)
[2019-02-27] MEDS: MethylPREDNISolone 40 MG/ML VIAL IVP SCH ×4 (04:52→23:44)
[2019-02-27 05:49] LABS: Hematocrit 40.9 % (37.5-50.1); Hemoglobin 13.9 g/dL (12.9-16.9); Mean Corpuscular Hemoglobin 28.5 pg (28.0-33.3); Mean Corpuscular Volume 83.8 fL (83.0-100.0); Platelet Count 192 K/mcL (140-400); Red Blood Count 4.88 M/mcL (4.19-5.50); Red Cell Distribution Width 15.9 % (11.5-14.5); White Blood Count 7.8 K/mcL (4.3-11.1)
[2019-02-27 05:57] LABS: INR 1.4
[2019-02-27 06:09] LABS: BUN/Creatinine Ratio 22 (6-26); Blood Urea Nitrogen 24 mg/dL (6-20); Carbon Dioxide 28 mEq/L (23-29); Chloride 101 mEq/L (98-107); Glucose 212 mg/dL (70-105); Magnesium 1.7 mg/dL (1.6-2.6); Osmolality,Calculated 294 (280-300); Potassium 3.7 mEq/L (3.5-5.1); Sodium 137 mEq/L (136-145); eGFR For African Americans > 60 (> 60); eGFR For Non-African Americans > 60 (> 60)
[2019-02-27] MEDS: Furosemide 40 MG TABLET PO SCH ×2 (08:45→17:23)
[2019-02-27] MEDS: Gabapentin 400 MG CAPSULE PO SCH ×4 (08:45→20:52)
[2019-02-27] MEDS: Aspirin Enteric Coated 81 MG Tablet PO SCH (08:45)
[2019-02-27] MEDS: Insulin LISPRO 300 UNITS/3 ML VIAL SQ SCH ×4 (08:46→20:52)
[2019-02-27] MEDS: Azithromycin 500 MG in 0.9 % Sodium Chloride 250 ML IVPB SCH (13:06)
[2019-02-27] MEDS ORDERED: *HR* LORazepam 1 MG TABLET PO ONE (17:33)
[2019-02-28] MEDS: Ipratropium/Albuterol Neb 3 ML IH SCH ×3 (03:47→16:01)
[2019-02-28] MEDS: *HR* Enoxaparin 150 MG/ML SYRINGE SQ SCH (04:59)
[2019-02-28] MEDS: MethylPREDNISolone 40 MG/ML VIAL IVP SCH ×2 (05:00→11:32)
[2019-02-28 05:08] LABS: Hematocrit 40.8 % (37.5-50.1); Mean Corpuscular HGB Conc 34.3 g/dL (31.6-35.5); Mean Corpuscular Hemoglobin 28.7 pg (28.0-33.3); Mean Corpuscular Volume 83.8 fL (83.0-100.0); Mean Platelet Volume 10.2 fL (9.4-12.4); Platelet Count 184 K/mcL (140-400); Red Blood Count 4.87 M/mcL (4.19-5.50); Red Cell Distribution Width 15.9 % (11.5-14.5)
[2019-02-28 05:15] LABS: INR 1.7; Prothrombin Time 19.3 Seconds (9.4-12.1)
[2019-02-28 06:57] LABS: BUN/Creatinine Ratio 30 (6-26); Blood Urea Nitrogen 32 mg/dL (6-20); Calcium 9.2 mg/dL (8.6-10.3); Carbon Dioxide 27 mEq/L (23-29); Chloride 99 mEq/L (98-107); Glucose 257 mg/dL (70-105); Osmolality,Calculated 298 (280-300); Potassium 3.7 mEq/L (3.5-5.1); Sodium 136 mEq/L (136-145); eGFR For African Americans > 60 (> 60); eGFR For Non-African Americans > 60 (> 60)
[2019-02-28] MEDS: Furosemide 40 MG TABLET PO SCH ×2 (08:33→17:34)
[2019-02-28] MEDS: Aspirin Enteric Coated 81 MG Tablet PO SCH (08:33)
[2019-02-28] MEDS: Gabapentin 400 MG CAPSULE PO SCH ×3 (08:33→17:35)
[2019-02-28] MEDS: Insulin LISPRO 300 UNITS/3 ML VIAL SQ SCH ×3 (08:37→17:35)
[2019-02-28] MEDS ORDERED: Azithromycin 250 MG TABLET PO SCH (10:30)
[2019-02-28 11:36] VITALS: BP 168/94
[2019-02-28] MEDS ORDERED: predniSONE 20 MG TABLET PO SCH (11:44)
[2019-02-28] MEDS ORDERED: Warfarin perPT PO PRN (11:45)
[2019-02-28] MEDS ORDERED: *HR* Enoxaparin 150 MG/ML SYRINGE SQ SCH (18:00)
[2019-02-28] MEDS ORDERED: *HR* Warfarin 10 MG TABLET PO ONE (18:00)
== END 2019-02-28 18:56 | disposition home or self-care (01) ==
LOC: 2ANU → SUATTDRO 11:45
PROVIDERS: ADMIT Internal Medicine; ATTEND Family Medicine

== ENCOUNTER 2019-07-30 13:30 | Observation (INO) ==
[2019-07-30] MEDS ORDERED: Nitroglycerin 0.4 MG TAB.SUBL SL ONE (15:15)
[2019-07-30] MEDS ORDERED: Aspirin 325 MG TABLET ONE (15:16)
[2019-07-30] MEDS ORDERED: Aspirin 325 MG TABLET PO ONE (15:18)
[2019-07-30] MEDS ORDERED: Isovue-370 500 ML BOTTLE IVP ONE (17:59)
[2019-07-30] MEDS ORDERED: Ondansetron 4 MG/2 ML VIAL IVP PRN (19:43)
[2019-07-30] MEDS ORDERED: Nitroglycerin 0.4 MG TAB.SUBL SL PRN (19:45)
[2019-07-30] MEDS ORDERED: *HR* LORazepam 1 MG TABLET PO PRN (19:46)
[2019-07-30] MEDS ORDERED: *HR* Dextrose 50 % in Water (Syg) 50 ML SYRINGE IVP PRN (20:12)
[2019-07-30] MEDS ORDERED: D5% in Water 1,000 ML IVC PRN (20:12)
[2019-07-30] MEDS ORDERED: Dextrose Gel 15 GM/37.5 ML TUBE PO PRN ×2 (20:12)
[2019-07-30] MEDS: Divalproex (12 HR) 500 MG TABLET PO SCH (20:42)
[2019-07-30] MEDS: Gabapentin 400 MG CAPSULE PO SCH (20:42)
[2019-07-30] MEDS: Apixaban 5 MG TABLET PO SCH (20:42)
[2019-07-30] MEDS: risperiDONE 1 MG TABLET PO SCH (20:43)
[2019-07-31 00:57] LABS: Alanine Aminotransferase 23 Units/L (7-52); Albumin 4.3 g/dL (3.5-5.7); Albumin/Globulin Ratio 1.7 (1.1-2.2); Alkaline Phosphatase 39 Units/L (34-104); Aspartate Amino Transferase 21 Units/L (13-39); BUN/Creatinine Ratio 21 (6-26); Bilirubin,Direct 0.2 mg/dL (0.0-0.2); Bilirubin,Indirect 0.4 mg/dL (0.0-1.0); Bilirubin,Total 0.6 mg/dL (0.3-1.0); Blood Urea Nitrogen 18 mg/dL (6-20); Calcium 9.1 mg/dL (8.6-10.3); Carbon Dioxide 32 mEq/L (23-29); Chloride 98 mEq/L (98-107); Globulin 2.5 g/dL (2.4-3.5); Glucose 140 mg/dL (70-105); Magnesium 1.6 mg/dL (1.6-2.6); Osmolality,Calculated 288 (280-300); Potassium 3.8 mEq/L (3.5-5.1); Sodium 137 mEq/L (136-145); Total Protein 6.8 g/dL (6.4-8.9); Troponin I < 0.03 ng/mL (< 0.04); eGFR For African Americans > 60 (> 60); eGFR For Non-African Americans > 60 (> 60)
[2019-07-31 01:40] LABS: Activated Partial Thrombo Time 30.9 Seconds (26.0-36.0); INR 1.1; Prothrombin Time 12.1 Seconds (9.4-12.1)
[2019-07-31 05:56] LABS: Basophils % 0.8 %; Eosinophils # 0.1 K/mcL (0.0-0.6); Eosinophils % 1.9 %; Hematocrit 38.5 % (37.5-50.1); Hemoglobin 12.8 g/dL (12.9-16.9); Immature Granulocytes % 0.5 % (0-4); Lymphocytes # 0.8 K/mcL (0.6-4.6); Lymphocytes % 20.3 %; Mean Corpuscular HGB Conc 33.2 g/dL (31.6-35.5); Mean Corpuscular Hemoglobin 30.9 pg (28.0-33.3); Mean Platelet Volume 9.9 fL (9.4-12.4); Monocytes # 0.3 K/mcL (0.0-1.3); Monocytes % 8.4 %; Neutrophils # 2.5 K/mcL (1.6-8.9); Platelet Count 104 K/mcL (140-400); Red Blood Count 4.14 M/mcL (4.19-5.50); Segmented Neutrophils % 68.1 %; White Blood Count 3.7 K/mcL (4.3-11.1)
[2019-07-31] MEDS: Gabapentin 400 MG CAPSULE PO SCH ×4 (08:25→20:17)
[2019-07-31] MEDS: Insulin LISPRO 300 UNITS/3 ML VIAL SQ SCH ×3 (08:25→17:15)
[2019-07-31] MEDS: risperiDONE 1 MG TABLET PO SCH ×2 (08:25→20:17)
[2019-07-31] MEDS: Apixaban 5 MG TABLET PO SCH ×2 (08:25→20:16)
[2019-07-31] MEDS: Aspirin 81 MG TAB.CHEW PO SCH (08:25)
[2019-07-31] MEDS: Divalproex (12 HR) 500 MG TABLET PO SCH ×2 (08:25→20:17)
[2019-07-31] MEDS ORDERED: Perflutren Lipid Microsphere 1.3 ML in 0.9 % Sodium Chloride 8.7 ML IVP ONE (09:13)
[2019-07-31] MEDS ORDERED: Ipratropium/Albuterol Neb 3 ML IH PRN (20:00)
[2019-08-01 06:15] LABS: Hematocrit 36.6 % (37.5-50.1); Hemoglobin 12.2 g/dL (12.9-16.9); Immature Platelets 3.1 % (1.1-6.1); Mean Corpuscular HGB Conc 33.3 g/dL (31.6-35.5); Mean Corpuscular Hemoglobin 30.7 pg (28.0-33.3); Mean Platelet Volume 9.7 fL (9.4-12.4); Red Blood Count 3.98 M/mcL (4.19-5.50); Red Cell Distribution Width 12.8 % (11.5-14.5); White Blood Count 4.2 K/mcL (4.3-11.1)
[2019-08-01] MEDS: Apixaban 5 MG TABLET PO SCH (08:53)
[2019-08-01] MEDS: Divalproex (12 HR) 500 MG TABLET PO SCH (08:53)
[2019-08-01] MEDS: risperiDONE 1 MG TABLET PO SCH (08:53)
[2019-08-01] MEDS: Insulin LISPRO 300 UNITS/3 ML VIAL SQ SCH ×3 (08:54→16:50)
[2019-08-01] MEDS: Aspirin 81 MG TAB.CHEW PO SCH (08:54)
[2019-08-01] MEDS: Gabapentin 400 MG CAPSULE PO SCH ×3 (08:54→16:50)
[2019-08-01] MEDS ORDERED: hydroCHLOROthiazide 25 MG TABLET PO SCH (09:00)
[2019-08-01 15:09] VITALS: BP 159/80
== END 2019-08-01 18:21 | disposition home or self-care (01) ==
LOC: 3BNU 13:30 → EMEROOARM 13:30 → 3BNU 18:57 → EMEROOARM 19:43 → SUATTDRO 20:21 → 3BNU 20:22
PROVIDERS: ADMIT Family Medicine; ATTEND Internal Medicine